=== PATIENT | male | born 1950 | race Caucasian/White ===

== ENCOUNTER 2024-08-09 05:40 | Inpatient (IN) ==
--- NOTE | 2024-07-06 15:57 | PAT Medication Instructions ---
Medication Instructions Date of Service July 06, 2024 Home Medications aspirin 81 mg tablet,delayed release 81 mg PO QAM atorvastatin 20 mg tablet 20 mg PO QAM duloxetine 30 mg capsule,delayed release 30 mg PO QAM glipizide 5 mg tablet 2.5 mg PO BID hydrochlorothiazide 25 mg tablet 25 mg PO QAM lisinopril 20 mg tablet 20 mg PO QAM metformin 500 mg tablet 500 mg PO BID omeprazole 20 mg capsule,delayed release 20 mg PO QAM sertraline 50 mg tablet 50 mg PO QAM ASK your prescriber and surgeon aspirin 81 mg tablet,delayed release 81 mg PO QAM DO NOT take the morning of surgery glipizide 5 mg tablet 2.5 mg PO BID hydrochlorothiazide 25 mg tablet 25 mg PO QAM lisinopril 20 mg tablet 20 mg PO QAM metformin 500 mg tablet 500 mg PO BID Take morning of surgery With a small sip of water, OTHERWISE NOTHING TO EAT OR DRINK AFTER MIDNIGHT: atorvastatin 20 mg tablet 20 mg PO QAM duloxetine 30 mg capsule,delayed release 30 mg PO QAM omeprazole 20 mg capsule,delayed release 20 mg PO QAM sertraline 50 mg tablet 50 mg PO QAM Take evening before surgery glipizide 5 mg tablet 2.5 mg PO BID metformin 500 mg tablet 500 mg PO BID Other Notes If you have any questions please call us at [phone] or [phone] or [phone] or [phone]
--- NOTE | 2024-07-14 10:55 | Anesthesiology Consultation ---
Date of Service July 14, 2024 Assessment & Plan (1) Encounter for pre-operative examination: - check BSG am DOS. - awaiting surgeon ordered medical clearance, 07/15/24 Lee Ann Cummings. Chart Review Chart Review: Pending: Refer to Additional Notes / Consult section and Patient seen in Pre Admission Testing Teaching & Discussion Pre-Anesthesia Teaching/Discussion Notes: Instructed NPO after midnight before surgery, except medications with 15 cc of water. Medication instructions provided according to the PAT guidelines. History Surgery Operation Date: 08/09/24 07:45 Proposed Procedures p L1-S1 Decompression, T12-S1 Fusion with Spinal Cord Monitoring - Christian Rizvi, Height/Weight Height: 5 ft 9 in Weight: 118.7 kg Allergies Allergy/AdvReac Type Severity Reaction Status Date / Time adhesive tape Allergy Intermediate Sores, Verified 07/02/24 11:45 "Ripped my skin right off" cholecalciferol (vitamin D3) Allergy Intermediate Itching Verified 07/02/24 11:45 [From Vitamin D3] ergocalciferol (vitamin D2) Allergy Intermediate Itching Verified 07/02/24 11:45 [From Vitamin D2] testosterone Allergy Intermediate Itching Verified 07/02/24 11:45 Penicillins Allergy Unknown Unknown Verified 07/02/24 11:45 Medications Home Medications Medication Instructions Recorded Confirmed Last Taken aspirin 81 mg tablet,delayed 81 mg PO QAM 07/02/24 07/02/24 Unknown release atorvastatin 20 mg tablet 20 mg PO QAM 07/02/24 07/02/24 Unknown duloxetine 30 mg capsule,delayed 30 mg PO QAM 07/02/24 07/02/24 Unknown release glipizide 5 mg tablet 2.5 mg PO BID 07/02/24 07/02/24 Unknown hydrochlorothiazide 25 mg tablet 25 mg PO QAM 07/02/24 07/02/24 Unknown lisinopril 20 mg tablet 20 mg PO QAM 07/02/24 07/02/24 Unknown metformin 500 mg tablet 500 mg PO BID 07/02/24 07/02/24 Unknown omeprazole 20 mg capsule,delayed 20 mg PO QAM 07/02/24 07/02/24 Unknown release sertraline 50 mg tablet 50 mg PO QAM 07/02/24 07/02/24 Unknown Past Medical History Medical History Acid reflux controlled, stable per pt Adverse effect of anesthesia awareness under anesthesia Diabetes mellitus, type 2 NIDDM History of prostate cancer (~2007) surgery only - no xrt/chemo Hx of Lyme disease (~2019) x2 completed antibiotic tx-denies residual issues Hypertension controlled, stable per pt Lung disease pt unsure of type Sleep apnea CPAP-compliant Patient denies h/o stroke, seizures, heart attack, heart failure, blood clots/DVTs or blood transfusions. Exercise / Class Metabolic Activity III < 4 Walking/Shop/Light housework (denies chest discomfort or shortness of breath with usual activities) Past Surgical History Surgical History History of bilateral cataract extraction History of hemorrhoidectomy History of hernia repair History of nasal surgery deviated septum History of prostatectomy History of surgery more than 20 yrs ago- "gland near prostate" pt cannot recall additional details History of tonsillectomy History of total left knee replacement Hx of colonoscopy Past Anesthesia History No Family Hx of Anesthesia Complications and Other (awareness during anesthesia) History of PONV No Hx of PONV and No Hx of Motion Sickness Social History Smoking Status: Former smoker Do You Dip or Chew Tobacco: No Smoking End Date: 47 years ago Hx Alcohol Use: Yes Alcohol type: beer alcohol intake frequency: a few times a month Hx Substance Use: No substance use type: does not use Review of Systems Patient denies chest pain, shortness of breath, dyspnea on exertion, fever, chills, cough, wheezing, or palpitations. Physical Exam Vital Signs Vitals BP 134/83 P 74 TEMP 98.4 SP02 95% on RA RESP 19 Physical Patient resting comfortably in chair in no acute distress, alert and oriented, responding appropriately throughout visit Full cervical extension range of motion without pain TMD < 3 finger breadths Mallampati Score 3 Dentition: several chipped teeth, denies chipped or loose teeth, caps/crowns, implants or bridges Lungs: normal respiratory effort. Good air movement, clear throughout to auscultation, no adventitious breath sounds Cardiac: regular rate and rhythm, no murmurs noted Carotid arteries: negative bruit bilat Lab Results Anesthesia Preop Results Results Anesthesia Widget: WBC 6.60 K/ul (4.8-10.8) 07/14/24 Hgb 12.2 g/dl (14.0-18.0) L 07/14/24 Hct 36.8 % (42.0-52.0) L 07/14/24 Plt 176 K/uL (130-400) 07/14/24 Na 136 mmol/L (136-145) 07/14/24 K 4.4 mmol/L (3.5-5.1) 07/14/24 Cl 103 mmol/L (98-107) 07/14/24 CO2 27 mmol/L (21-32) 07/14/24 BUN 13 mg/dl (6-23) 07/14/24 Creat 0.83 mg/dl (0.6-1.4) 07/14/24 Glucose Level 129 mg/dl (70-99(Fasting)) H 07/14/24 PT 10.7 Seconds (9.0-12.0) 07/14/24 PTT 26 Seconds (21-31) 07/14/24 INR 1.0 (0.9-1.1) 07/14/24 HA1c 7.0 % (4.5-5.6) H 07/14/24 Urine Color Yellow 07/14/24 Urine Appearance Clear (Clear) 07/14/24 Urine pH 7.0 (4.5-7.5) 07/14/24 Urine Specific [place] 1.009 (1.000-1.030) 07/14/24 Urine Protein Negative (Negative) 07/14/24 Urine Glucose (UA) Negative (Negative) 07/14/24 Urine Ketones Negative (Negative) 07/14/24 Urine Blood Negative (Negative) 07/14/24 Urine Nitrite Negative (Negative) 07/14/24 Urine Bilirubin Negative (Negative) 07/14/24 Urine Urobilinogen Negative (Negative) 07/14/24 Urine Leukocyte Esterase Negative (Negative) 07/14/24 Blood Type A Negative 07/14/24 Antibody Screen NEGATIVE 07/14/24 Testing Electrocardiogram Date: 07/14/24 NSR, rate 74 bpm Low voltage QRS Chest X-Ray Date: 07/14/24 No acute cardiopulmonary abnormalities were identified.
[2024-08-09] MEDS: LR 60ML/HR IV SCH (06:20)
[2024-08-09] MEDS: LR 15ML/HR IV SCH (06:21)
[2024-08-09] MEDS: VANCOMYCIN HCL 1,750 MG in SODIUM CHLORIDE 0.9% 500 ML IV SCH (06:21)
[2024-08-09] MEDS: GABAPENTIN 300 MG CAP PO SCH (06:24)
[2024-08-09] MEDS: CeleBREX 200 MG CAP PO SCH (06:25)
[2024-08-09] MEDS: ACETAMINOPHEN 500 MG TAB PO SCH (06:25)
[2024-08-09] MEDS ORDERED: PROPOFOL IV EMULSION 10 MG/ML 20 ML VIAL IV ONE (07:27)
[2024-08-09] MEDS ORDERED: LIDOCAINE 2% 2 ML VIAL/AMP(20MG/ML) INFIL ONE (07:27)
[2024-08-09] MEDS ORDERED: DEXAMETHASONE SOD INJ 4 MG/ML VIAL ONE (07:27)
[2024-08-09] MEDS ORDERED: MIDAZOLAM HCL 1 MG/ML 2ML VIAL ONE (07:27)
[2024-08-09] MEDS ORDERED: GLYCOPYRROLATE 0.2 MG/ML VIAL ONE (07:27)
[2024-08-09] MEDS ORDERED: ROCURONIUM BROMIDE 10 MG/ML 5 ML VIAL IV ONE ×2 (07:27→10:20)
[2024-08-09] MEDS ORDERED: ONDANSETRON INJ 2 MG/ML 2 ML VIAL ONE (07:27)
[2024-08-09] MEDS ORDERED: fentaNYL citrate PF 100 MCG/2 ML VIAL ONE ×2 (07:27→09:06)
[2024-08-09] MEDS ORDERED: HYDROmorphone INJ 2 MG/ML SYR/VIAL IV PRN (07:31)
[2024-08-09] MEDS ORDERED: ePHEDrine sulfate 50 MG/ML AMP IV PRN (07:31)
[2024-08-09] MEDS ORDERED: SUGAMMADEX SODIUM 200 MG/2 ML VIAL IV ONE (07:31)
[2024-08-09] MEDS ORDERED: ONDANSETRON INJ 2 MG/ML 2 ML VIAL IV PRN ×2 (07:31→14:30)
[2024-08-09] MEDS ORDERED: ATROPINE SULFATE 0.1 MG/ML 10ML SYR IV PRN (07:31)
[2024-08-09] MEDS ORDERED: HYDROmorphone INJ 1 MG/ML SYRINGE IV PRN ×2 (07:31→14:30)
--- NOTE | 2024-08-09 08:15 | Anesthesiology Consultation ---
Date of Service August 09, 2024 Assessment & Plan Chart Review Chart Review: Acceptable Risk for Surgery Consults Requested none ASA ASA3 Proposed Anesthesia Anesthesia Type: General History Surgery Operation Date: 08/09/24 09:05 Proposed Procedures p L1-S1 Decompression, T12-S1 Fusion. Spinal Cord Monitoring - Christian Rizvi DO Height/Weight Height: 5 ft 9 in Weight: 115.7 kg Allergies Allergy/AdvReac Type Severity Reaction Status Date / Time adhesive tape Allergy Intermediate Sores, Verified 08/09/24 05:49 "Ripped my skin right off" cholecalciferol (vitamin D3) Allergy Intermediate Itching Verified 08/09/24 05:49 [From Vitamin D3] ergocalciferol (vitamin D2) Allergy Intermediate Itching Verified 08/09/24 05:49 [From Vitamin D2] testosterone Allergy Intermediate Itching Verified 08/09/24 05:49 Penicillins Allergy Unknown Unknown Verified 08/09/24 05:49 Medications Home Medications Medication Instructions Recorded Confirmed Last Taken aspirin 81 mg tablet,delayed 81 mg PO QAM 07/02/24 08/09/24 2 Days Ago release ~08/07/24 atorvastatin 20 mg tablet 20 mg PO QAM 07/02/24 08/09/24 08/09/24 04:45 duloxetine 30 mg capsule,delayed 30 mg PO QAM 07/02/24 08/09/24 08/09/24 04:45 release glipizide 5 mg tablet 2.5 mg PO BID 07/02/24 08/09/24 08/08/24 18:30 hydrochlorothiazide 25 mg tablet 25 mg PO QAM 07/02/24 08/09/24 08/08/24 08:00 lisinopril 20 mg tablet 20 mg PO QAM 07/02/24 08/09/24 08/08/24 08:00 metformin 500 mg tablet 500 mg PO BID 07/02/24 08/09/24 08/08/24 18:30 omeprazole 20 mg capsule,delayed 20 mg PO QAM 07/02/24 08/09/24 08/09/24 04:45 release sertraline 50 mg tablet 50 mg PO QAM 07/02/24 08/09/24 08/09/24 04:45 Active Medications Generic Name Dose Route Start Last Admin Trade Name Amauryq PRN Reason Stop Dose Admin Acetaminophen 1,000 mg 08/09/24 06:00 08/09/24 06:25 Acetaminophen 500 Mg Tab PO 08/09/24 18:00 1,000 mg PREOP KEO Administration Celecoxib 200 mg 08/09/24 06:00 08/09/24 06:25 Celebrex 200 Mg Cap PO 08/09/24 18:00 200 mg PREOP KEO Administration Gabapentin 300 mg 08/09/24 06:00 08/09/24 06:24 Gabapentin 300 Mg Cap PO 08/09/24 18:00 300 mg PREOP KEO Administration Lactated Ringer's 1,000 mls @ 15 mls/hr 08/09/24 06:00 08/09/24 06:21 Lr IV 08/10/24 05:59 15 mls/hr .Q24H KEO Administration Lactated Ringer's 1,000 mls @ 60 mls/hr 08/09/24 06:00 08/09/24 06:20 Lr IV 08/09/24 22:39 Not Given .[id number] KEO Vancomycin HCl 1,750 mg/ 535 mls @ 200 mls/hr 08/09/24 06:00 08/09/24 06:21 Sodium Chloride IV 08/09/24 18:00 200 mls/hr PREOP KEO Administration NPO Date Last Intake of Fluids: 08/08/24 Time Last Intake of Fluids: 21:00 Date Last Intake of Solids: 08/08/24 Time Last Intake of Solids: 21:00 Last Intake of Solids Comment: Greater then 8 hrs Past Medical History Medical History Sleep apnea CPAP-compliant History of prostate cancer (~2007) surgery only - no xrt/chemo Acid reflux controlled, stable per pt Hx of Lyme disease (~2019) x2 completed antibiotic tx-denies residual issues Hypertension controlled, stable per pt Lung disease pt unsure of type Diabetes mellitus, type 2 NIDDM Adverse effect of anesthesia awareness under anesthesia Exercise / Class Metabolic Activity III < 4 Walking/Shop/Light housework Past Surgical History Surgical History History of surgery more than 20 yrs ago- "gland near prostate" pt cannot recall additional details Hx of colonoscopy History of bilateral cataract extraction History of nasal surgery deviated septum History of tonsillectomy History of hemorrhoidectomy History of hernia repair History of total left knee replacement History of prostatectomy Past Anesthesia History No Hx of Anesthesia Complications History of PONV No Hx of PONV and No Hx of Motion Sickness Social History Smoking Status: Former smoker Do You Dip or Chew Tobacco: No Smoking End Date: 47 years ago Hx Alcohol Use: Yes Alcohol type: beer alcohol intake frequency: a few times a month Hx Substance Use: No substance use type: does not use Physical Exam Vital Signs Last Vital Signs Temp 36.4 C L 08/09/24 06:07 Pulse 85 08/09/24 06:07 Resp 20 08/09/24 06:07 BP 128/79 08/09/24 06:07 Pulse Ox 95 08/09/24 06:07 O2 Del Method Room Air 08/09/24 06:07 Constitutional + obese; no acute distress ENMT Mouth: + TMJ abnormality; no dentition abnormality Thyromental Distance: > or= 3.5 Finger Breadths Mallampati Class: II Neck + thick neck Respiratory normal respiratory effort Auscultation: lungs clear to auscultation bilaterally Cardiovascular Rate/Rhythm: regular rate and regular rhythm Neurologic moves all extremities Psychiatric Orientation: alert and oriented x 3 Testing Laboratory Results 08/09/24 06:08 POC Glucose 122 H Electrocardiogram Date: 07/14/24 NSR, rate 74 bpm Low voltage QRS Chest X-Ray Date: 07/14/24 No acute cardiopulmonary abnormalities were identified.
--- NOTE | 2024-08-09 08:20 | History & Physical Bridge Note ---
Date of Service August 09, 2024 History & Physical Bridge Note I have examined the patient, reviewed the History & Physical and in the interval since the performance of the History & Physical I have noted the following changes of clinical significance: no changes noted
--- NOTE | 2024-08-09 08:21 | History & Physical Report ---
Date of Service August 09, 2024 Assessment & Plan (1) Spondylolisthesis, lumbar region: Plan: L1 S1 decompression, T12-S1 fusion History of Present Illness Chief Complaint: Back and bilateral leg pain Primary Care Provider: Lee Ann Borrero This is a 74-year-old male who presents with back and bilaterally pain and failing course of nonoperative care is here for surgical invention. Allergies Allergy/AdvReac Type Severity Reaction Status Date / Time adhesive tape Allergy Intermediate Sores, Verified 08/09/24 05:49 "Ripped my skin right off" cholecalciferol (vitamin D3) Allergy Intermediate Itching Verified 08/09/24 05:49 [From Vitamin D3] ergocalciferol (vitamin D2) Allergy Intermediate Itching Verified 08/09/24 05:49 [From Vitamin D2] testosterone Allergy Intermediate Itching Verified 08/09/24 05:49 Penicillins Allergy Unknown Unknown Verified 08/09/24 05:49 Home Medications Medication Instructions Recorded Confirmed Type aspirin 81 mg tablet,delayed 81 mg PO QAM 07/02/24 08/09/24 History release atorvastatin 20 mg tablet 20 mg PO QAM 07/02/24 08/09/24 History duloxetine 30 mg capsule,delayed 30 mg PO QAM 07/02/24 08/09/24 History release glipizide 5 mg tablet 2.5 mg PO BID 07/02/24 08/09/24 History hydrochlorothiazide 25 mg tablet 25 mg PO QAM 07/02/24 08/09/24 History lisinopril 20 mg tablet 20 mg PO QAM 07/02/24 08/09/24 History metformin 500 mg tablet 500 mg PO BID 07/02/24 08/09/24 History omeprazole 20 mg capsule,delayed 20 mg PO QAM 07/02/24 08/09/24 History release sertraline 50 mg tablet 50 mg PO QAM 07/02/24 08/09/24 History Past Med/Surg History Problem List (Updated 08/09/24 @ 08:21 by Christian Rizvi DO) Spondylolisthesis, lumbar region Encounter for pre-operative examination Medical History Sleep apnea CPAP-compliant History of prostate cancer (~2007) surgery only - no xrt/chemo Acid reflux controlled, stable per pt Hx of Lyme disease (~2019) x2 completed antibiotic tx-denies residual issues Hypertension controlled, stable per pt Lung disease pt unsure of type Diabetes mellitus, type 2 NIDDM Adverse effect of anesthesia awareness under anesthesia Surgical History History of surgery more than 20 yrs ago- "gland near prostate" pt cannot recall additional d etails Hx of colonoscopy History of bilateral cataract extraction History of nasal surgery deviated septum History of tonsillectomy History of hemorrhoidectomy History of hernia repair History of total left knee replacement History of prostatectomy Social History Smoking Status: Former smoker Tobacco Type: Cigarettes Smoking End Date: 47 years ago; Second Hand Exposure: No; Do You Dip or Chew Tobacco: No; Tobacco Cessation Education Requested by Patient: No Hx Alcohol Use: Yes Alcohol type: beer Hx Substance Use: No Preferred Language: [place]ralt[place] Communication Ability: Effective Senior Php Developer Required: No Beliefs That Will Affect Care: None Current Living Situation: Spouse Other Information That Helps Us Care for You: No Feels Safe at Home: Yes Safety Concerns: Feels Safe At This Time Assistive Devices: Glasses and Other Assistive Devices Comment: Upper Partial Physical Exam 2 Physical Exam: Patient is alert and oriented heart regular rhythm Lungs clear Results & Data Results & Data Vital Signs (Past 12 Hours) Vital Signs Temp Pulse Resp BP Pulse Ox O2 Del Method 08/09/24 06:07 36.4 C L 85 20 128/79 95 Room Air
[2024-08-09] MEDS ORDERED: TRANEXAMIC ACID / 0.7% NACL 1000MG/100ML BAG IV ONE (09:10)
[2024-08-09] MEDS: TRANEXAMIC ACID / 0.7% NACL 1,000 MG/100 ML BAG IV STA ×2 (09:14→10:52)
[2024-08-09] MEDS ORDERED: PHENYLEPHRINE 100MCG/ML 5ML SYR ONE (09:20)
[2024-08-09] MEDS: BUPIVACAINE/EPINEPHRINE 0.25% 1:200,000 30 ML VIAL ONE (09:46)
[2024-08-09] MEDS: SURGICEL ABSORB HEMOSTAT 2IN X 14IN TOP ONE (09:46)
[2024-08-09] MEDS ORDERED: ALBUMIN HUMAN 5% 12.5 GM/250 ML VIAL IV ONE (09:50)
[2024-08-09] MEDS: ceFAZolin 330 MG/ML 1 GM VIAL ONE (10:03)
[2024-08-09] MEDS ORDERED: ePHEDrine sulfate 50 MG/5 ML SYR ONE (10:22)
[2024-08-09] MEDS ORDERED: SODIUM CHLORIDE 0.9% 100 ML IV PRN (11:11)
[2024-08-09] MEDS ORDERED: SODIUM CHLORIDE 0.9% 50 ML IV PRN (11:11)
[2024-08-09] MEDS ORDERED: HYDROmorphone INJ 2 MG/ML SYR/VIAL ONE (11:53)
[2024-08-09] MEDS: FLOSEAL HEMOSTATIC MATRIX 10ML TOP ONE (12:44)
--- NOTE | 2024-08-09 13:02 | Operative Report ---
Post Operative Report Pre & Post Diagnosis Operation Date: 08/09/24 09:05 Pre-Op Diagnosis: #1 multilevel lumbar spondylosis with radiculopathy #2 lumbar spondylolisthesis. #3 lumbar spinal stenosis #4 lumbar disc herniation with radiculopathy L1-L2 #5 obesity Post-Op Diagnosis: Same I identified the patient and participated in the time-out.: Yes Procedure Operation Date: 08/09/24 09:05 Actual Procedures #1 lumbar decompression with bilateral medial facetectomies and foraminotomies T12-S1. #2 posterior spinal fusion T12-S1. #3 placement posterior segmental instrumentation using Ortiz T12-S1. #4 interbody fusion L3-L4 L4-L5 L5-S1. #5 placement Spira 15 x 26 mm x 2 at L2-3 L4, 13 x 26 mm x 2 at L4-5 and 16 x 26 mm x 2 at L5-S1. #6 placement locally harvested morselized autograft and posterior gutters per #7 placement infuse collagen sponge, with Koros in the posterior lateral gutters and os design bone graft and by space. #8 application of versa wrap over the exposed dura. Surgeon Christian Rizvi, DO Lithographic Plate Maker Elli Centeno Estimated Blood Loss 2,150 Findings See Below The patient is 5 foot 9 weighing over 115 kg with a BMI in excess of 37. This combined with an EBL of greater than 2000 cc created significant technical difficulty With positioning exposure and the procedure itself. This at least 50% increased operative time. And recommending a modifier 22. Specimens None Indications This is a 74-year-old male presents publish diagnosis of failing course of nonoperative care is here for surgical invention. Description of Procedure Patient was met with identified informed consent obtained. Patient was then taken to the operative suite underwent intubation placed in a prone position on the Chris table atop the [place] frame. All bony prominences well-padded eyes inspected to ensure no external precipice spinal. This point the thoracolumbar spine is prepped and draped no sterile fashion. Sharp dissection with the assistance of Bovie cautery from down to and exposing the transverse processes of T12-L1 L2-L3-L4 L5 and the sacral ala bilaterally. From caudal to cephalad fashion complete laminectomy of L5 L4 L3 L2 L1 and T12 was performed with bilateral medial facetectomies and foraminotomies addressing severe spinal stenosis. This included resection of the disc herniation at L1-L2 on the left. Pedicle screws then placed in T12 L1-L2 L3-L4-L5 and S1 levels bilaterally with the assistance of fluoroscopy in the process scarlet contoured and placed. By way of transfer approach on the right discectomy of L5-S1 was performed endplates guarded to subcortical and bone and a 16 x 26 mm Spira cage filled with os design bone graft tapped in position. Then proceeded to left transforaminal region at L5-S1. Again discectomy performed endplates grade 2 subcortical bleeding bone and a second 16 x 26 mm Spira cage filled with os design tapped in position. Then proceeded L4-[address] of transfer approach on the left a discectomy was performed. Endplates guided to subcortical bleeding bone. A 13 x 26 mm spiral cage filled with os design bone graft apposition. Then proceeded to the right transforaminal region at L4-L5. Again discectomy performed. Endplates guided to subcortical the bone. A second 13 x 26 mm spiral cage filled with os design bone graft apposition. Then proceeded to L3-L4. And by way of a transforaminal portion right a discectomy was performed. Endplates guided to subcortical main bone. A 15 x 26 mm Spira cage filled with os design bone graft tapped in position. Then proceeded to left transforaminal region at L3-L4. Again discectomy performed. Endplates guided to subcortical bleeding bone. A second 13 x 26 mm Spira cage filled with os design bone graft apposition. The rods were then compressed locked in final position bilaterally. The transverse processes of T12 L1-L2 L3-L4-L5 and the sacral ala burred to subcortical white bone. Infuse collagen sponge combined with Koros and local autograft placed in the posterior gutters. 15 round IVONE drain inserted. Versa wrap placed over the exposed dura. Incision was then closed with 1 Vicryl fascia 2-0 Vicryl subcutaneously and 4 Monocryl for final skin closure. Steri- Strips and sterile dressing placed. Patient waken taken to PACU in stable condition. Please note spinal cord monitoring was utilized at the procedure no changes noted. Elli Centeno was present at the entire surgeon while the patient positioning complex portion of the surgery and final skin closure. I attest to the content of the Intraoperative Record and any orders documented therein. Any exceptions are noted below.
[2024-08-09 13:31] LABS: iSTAT Hemoglobin 10.2 g/dl (14.0-18.0); iSTAT Ionized Calcium 1.17 mmol/l (1.12-1.32); iSTAT Potassium 4.7 mmol/L (3.3-5.0)
[2024-08-09 13:31] LABS: iSTAT Hemoglobin 8.5 g/dl (14.0-18.0); iSTAT Ionized Calcium 1.11 mmol/l (1.12-1.32); iSTAT Potassium 5.1 mmol/L (3.3-5.0)
[2024-08-09] MEDS: fentaNYL citrate PF 100 MCG/2 ML VIAL IV PRN (13:45)
[2024-08-09 14:18] LABS: Hemoglobin 9.8 g/dl (14.0-18.0)
[2024-08-09] MEDS ORDERED: traMADol HCL 50 MG TABLET PO PRN (14:30)
[2024-08-09] MEDS ORDERED: DO NOT ADMINISTER PNEUMOCOCCAL VACCINE PRN (14:30)
[2024-08-09] MEDS ORDERED: DO NOT ADMINISTER FLU VACCINE PRN (14:30)
[2024-08-09] MEDS ORDERED: LORazepam 2 MG/1 ML VIAL IV PRN (14:30)
[2024-08-09] MEDS ORDERED: diphenhydrAMINE Capsule 25 MG CAP PO PRN (14:30)
[2024-08-09] MEDS ORDERED: PROMETHAZINE 12.5 MG/50.5 ML BAG IV PRN (14:30)
[2024-08-09] MEDS ORDERED: METOCLOPRAMIDE HCL INJ 5 MG/ML 2 ML VIAL IV PRN (14:30)
[2024-08-09] MEDS ORDERED: ONDANSETRON 4 MG OD TAB PO PRN (14:30)
[2024-08-09] MEDS ORDERED: ALUMINUM/MAGNESIUM SUSP 30 ML UDC PO PRN (14:30)
[2024-08-09] MEDS ORDERED: FAMOTIDINE 20 MG TAB PO PRN (14:30)
[2024-08-09] MEDS ORDERED: LORazepam 0.5 MG TAB PO PRN (14:30)
[2024-08-09] MEDS ORDERED: NALOXONE HCL 0.4 MG/1 ML VIAL/CARP IV PRN (14:30)
[2024-08-09] MEDS ORDERED: hydrOXYzine HCl 25 MG TAB PO PRN (14:30)
[2024-08-09] MEDS ORDERED: SOD PHOSPHATE/SOD BIPHOSPHATE ENEMA 132 ML BTL PR PRN (14:30)
[2024-08-09] MEDS ORDERED: HYDROmorphone INJ 0.5 MG/0.5 ML SYR IV PRN (14:30)
[2024-08-09] MEDS ORDERED: PHARMACY GLYCEMIC MGMT CONSULT PRN (14:30)
--- NOTE | 2024-08-09 14:59 | Fluoroscopy Report ---
FL lumbar spine 2-3V CLINICAL HISTORY: L1-S1 DECOMPRESSION T12-L1 FUSION COMPARISON STUDY: None pertinent FLUOROSCOPY TIME: 44.8 seconds FLUOROSCOPY IMAGES: 7 EXPOSURE DOSE: 40.61 mGy FINDINGS: Fluoroscopic guidance was performed for a multilevel laminectomy and fusion fusion IMPRESSION: Guidance; please refer to the operative report for findings on real-time observation. ACT 112: Negative or not required by law. Electronically signed by: Kelly Arboleda M.D. 08/09/2024 2:58 PM
[2024-08-09] MEDS ORDERED: DEXTROSE 50% 50 ML SYRINGE IV PRN (15:00)
[2024-08-09] MEDS ORDERED: GLUCAGON FOR INJ 1 MG VIAL SQ PRN (15:00)
[2024-08-09] MEDS ORDERED: GLUCOSE 40% GEL 15 GM TUBE PO PRN (15:00)
[2024-08-09] MEDS ORDERED: CARBOHYDRATES FOR HYPOGLYCEMIA PO PRN (15:00)
[2024-08-09] MEDS ORDERED: GLUCOSE 10 TAB/TUBE PO PRN (15:00)
--- NOTE | 2024-08-09 15:07 | Anesthesiology Progress Note ---
Date of Service August 09, 2024 Anesthesia Post Procedure Vital Signs Vital Signs: Temp Pulse Pulse Resp BP BP Pulse Ox 08/09/24 14:36 36.4 C L 101 H 16 108/57 L 95 08/09/24 14:20 36.4 C L 104 H 18 103/89 94 08/09/24 14:10 98 H 12 94/55 L 97 08/09/24 14:00 99 H 15 94/58 L 96 08/09/24 13:50 101 H 18 99/64 L 97 08/09/24 13:40 100 H 18 94/68 L 98 08/09/24 13:30 101 H 12 107/58 L 99 08/09/24 13:20 36.2 C L 85 16 91/50 L 97 08/09/24 13:00 100 H 12 107/58 L 98 08/09/24 06:07 36.4 C L 85 20 128/79 95 O2 Del Method O2 Flow Rate 08/09/24 14:36 Nasal Cannula 3 08/09/24 14:20 Nasal Cannula 3 08/09/24 14:10 Nasal Cannula 3 08/09/24 14:00 Nasal Cannula 3 08/09/24 13:50 Oxymask 4 08/09/24 13:40 Oxymask 4 08/09/24 13:30 Oxymask 4 08/09/24 13:20 Oxymask 6 08/09/24 13:00 Oxymask 4 08/09/24 06:07 Room Air Pain Intensity Lower Back: Pain Intensity: 5 Bilateral Hip: Pain Intensity: 7 Transfer of Care Handoff Completed per policy Notes Mental Status: alert / awake / arousable Patient Amnestic to Procedure: Yes Nausea / Vomiting: adequately controlled Pain: adequately controlled Airway Patency, RR, SpO2: stable & adequate BP & HR: stable & adequate Hydration State: stable & adequate Anesthetic Complications: no major complications apparent and Pt Satisfied with anesthetic care Notes: Unit of PRBC given in OR Hct 30 - surgical team to continue to manage, god pain control, moves all ext
--- NOTE | 2024-08-09 15:08 | Pharmacy Report ---
Pharmacy Glycemic Short Note 2 - Date of Service August 09, 2024 - Glycemic Short BSG Results (Last 24 hours): 08/09/24 08/09/24 08/09/24 06:08 10:46 12:27 POC Glucose 122 H POC Glucose (other) 150 H 216 H 08/09/24 13:23 POC Glucose 273 H POC Glucose (other) OUTPATIENT ANTIDIABETIC REGIMEN: * glipizide 2.5mg po BID * metformin 500mg po BID HbA1c: 7% on 07-14-24 ASSESSMENT: * 74 year old male admitted 08/09 for spinal decompression and fusion (POD #0). Pharmacy was consulted for glycemic management postop. * BSG preop was 122mg/dL and post op was 273mg/dL. He did receive dexamethasone 8mg iv x 1 preop. Lantus 20 units SQ x 1 was ordered and he was started on a weight based bolus insulin regimen with a stress of 2. PLAN FOR INPATIENT GLYCEMIC CONTROL: * Hold outpatient oral diabetes medications * Basal insulin * Lantus 20 units SQ x 1 * Bolus insulin * NovoLog per scale ACHS or Q6hrs while NPO * Goal Range: Low 110 mg/dL - High 140 mg/dL * Correction Factor: 20 mg/dL/unit * Nutritional / Prandial insulin per carb ratio of 1 unit per 8 grams CHO consumed
--- NOTE | 2024-08-09 16:06 | Consultation ---
Date of Consultation August 09, 2024 Assessment & Plan (1) Spondylolisthesis, lumbar region: (2) Acute blood loss as cause of postoperative anemia: (3) Postoperative hypotension: (4) Diabetes mellitus, type 2: Plan This is a 74 yr old M who has a significant PMH of HTN, HLD, T2DM, CARRI on CPAP, GERD who presents for elective lumbar procedure by Dr. Rizvi. #S/P L1-S1 decompression and T12-L1 fusion POD #[address] Rizvi #Acute blood loss anemia as cause of post operative anemia with EBL 2,150ml pt admitted to medical pain/wound management per ortho remain bedrest for now given hypotension pt with hypovolemia in setting of blood loss, he received 1 unit PRBC in pacu will obtain repeat stat H/H now, with low threshold for additional unit will give 500ml IVF x 1 now and continue maintenance at 125cc/hr place ASA on hold will hold all antihypertensives #Hyperkalemia: K of 5.1, will repeat now, hold lisinopril, and place on low K diet. #T2DM, controlled a1c 7.0 in July on metformin, glipizide, hold for now glycemic pharmacy on board - appreciate management post op pt is hyperglycemic 2/2 steroids #HTN on lisinopril and HCTZ as outpt place on hold until BP improves #CARRI on cpap: continue cpap at hs #DVT ppx: SCDS FULL CODE PCP: Lee Ann Borrero Dispo: admit to Med/surg, if decompensates further will transfer to higher level of care Pt was seen and examined in collaboration with Dr. Salter, please see addendum I spent a total of 35 minutes coordinating, documenting and providing care for this patient excluding time spent in the performance of separately billed services or time spent by another provider/QHP. Supervising Physician Co-Signing Physician Notes Seen resting in bed, sitting up, having dinner,Attending Addendum: Case reviewed with the advanced practitioner. I have personally performed a history and physical examination on the patient. I have reviewed the advanced practitioner's documentation on the date of service referenced in note, and I agree with, and take responsibility for the plan of care. please refer to her notes for full details patient seen and examined, records reviewed by myself as well on exam, patient resting in bed, not in distress, sitting up, having dinner States he is having right hip pain Denies dizziness, chest pain, shortness of breath, palpitations, nausea no other symptoms VS noted and reviewed oriented x 3, not in distress, speaks in sentences with no effort nor accessory muscle use Mild tachycardia , regular rhythm, no murmurs clear breath sounds bilaterally non distended, soft, nontender no bipedal edema, erythema, warmth no neuro deficits all labs, imaging noted and reviewed ASSESSMENT AND PLAN Status post back surgery Acute blood loss anemia Hypotension secondary to above Status post 1 unit of packed RBCs., Repeat hemoglobin 9 Repeat hemoglobin 11 PM pending 2.5 L total of IV NSS bolus given Blood pressure improving Continue to monitor closely Hold antihypertensives signed out to Dr. Fatima other diagnoses and plan of care as per advanced practitioner's notes I spent a total of 35 minutes coordinating, documenting, and providing care for this patient, excluding time spent in the performance of separately billed services or time spent by another provider/QHP. Walter Salter MD History of Present Illness Requesting Physician: Dr. Rizvi Reason for Consultation: Post op medical management Attending Physician: Christian Rizvi, History of Present Illness This is a 74 yr old M who has a significant PMH of HTN, HLD, T2DM, CARRI on CPAP, GERD who presents for elective lumbar procedure by Dr. Rizvi. Hx obtained from external chart review, pt and at bedside. Currently he feels sweaty, "like when my sugar is low." He denies f/c/s, lightheaded, dizziness, chest pain, sob, cough, uri, n/v/d. He has a huitron cath in place. Prior to surg he denies issues passing bowels or urine. He underwent an L1-S1 decompression with a T12-L1 fusion. He tolerated procedure well. He had a substantial ebl of > 2000ml. Post operatively he was hypotensive and received 1 unit PRBC. Post transfusion his hgb was 9.8 at 13:55. Upon arriving to the floor Pt was still hypotensive with SBPs 80-90s. He was tachycardic and mildly hypothermic. Nurse Chano was at bedside. Allergies Allergy/AdvReac Type Severity Reaction Status Date / Time adhesive tape Allergy Intermediate Sores, Verified 08/09/24 05:49 "Ripped my skin right off" cholecalciferol (vitamin D3) Allergy Intermediate Itching Verified 08/09/24 05:49 [From Vitamin D3] ergocalciferol (vitamin D2) Allergy Intermediate Itching Verified 08/09/24 05:49 [From Vitamin D2] testosterone Allergy Intermediate Itching Verified 08/09/24 05:49 Penicillins Allergy Unknown Unknown Verified 08/09/24 05:49 Home Medications Medication Instructions Recorded Confirmed Type aspirin 81 mg tablet,delayed 81 mg PO QAM 07/02/24 08/09/24 History release atorvastatin 20 mg tablet 20 mg PO QAM 07/02/24 08/09/24 History duloxetine 30 mg capsule,delayed 30 mg PO QAM 07/02/24 08/09/24 History release glipizide 5 mg tablet 2.5 mg PO BID 07/02/24 08/09/24 History hydrochlorothiazide 25 mg tablet 25 mg PO QAM 07/02/24 08/09/24 History lisinopril 20 mg tablet 20 mg PO QAM 07/02/24 08/09/24 History metformin 500 mg tablet 500 mg PO BID 07/02/24 08/09/24 History omeprazole 20 mg capsule,delayed 20 mg PO QAM 07/02/24 08/09/24 History release sertraline 50 mg tablet 50 mg PO QAM 07/02/24 08/09/24 History Patient History Medical History Sleep apnea CPAP-compliant History of prostate cancer (~2007) surgery only - no xrt/chemo Acid reflux controlled, stable per pt Hx of Lyme disease (~2019) x2 completed antibiotic tx-denies residual issues Hypertension controlled, stable per pt Lung disease pt unsure of type Diabetes mellitus, type 2 NIDDM Adverse effect of anesthesia awareness under anesthesia Surgical History History of surgery more than 20 yrs ago- "gland near prostate" pt cannot recall additional details Hx of colonoscopy History of bilateral cataract extraction History of nasal surgery deviated septum History of tonsillectomy History of hemorrhoidectomy History of hernia repair History of total left knee replacement History of prostatectomy Social History Smoking Status: Former smoker Tobacco Type: Cigarettes Smoking End Date: 47 years ago; Second Hand Exposure: No; Do You Dip or Chew Tobacco: No; Tobacco Cessation Education Requested by Patient: No Hx Alcohol Use: Yes Alcohol type: beer Hx Substance Use: No Preferred Language: Brazilian Communication Ability: Effective Button Riveter Required: No Beliefs That Will Affect Care: None Current Living Situation: Spouse Other Information That Helps Us Care for You: No Feels Safe at Home: Yes Safety Concerns: Feels Safe At This Time Assistive Devices: Glasses and Other Assistive Devices Comment: Upper Partial Review of Systems Review of Systems: All systems reviewed & are unremarkable except as noted in HPI & below Physical Exam Physical Exam: Constitutional: WD/WN, obese, M, lying in bed, vitals as above, NAD, sitting up in bed, pleasant, conversing easily, appears pale Head: Normocephalic, Atraumatic Eyes: PERRL, conjunctivae normal, anicteric sclerae ENMT: external ear and nose normal, oropharynx normal Neck: trachea midline, no thyromegaly normal visual inspection Respiratory: normal respiratory effort, lungs clear to auscultation, no wheeze, rales, rhonchi. Normal insp/exp effort, no accessory muscle use Cardiovascular: RRR, no murmur, no edema Vessels: no JVD or carotid bruit Chest: normal inspection of chest Abdomen: obese abd, normal bowel sounds, soft, nontender, no hepatosplenomegaly Musculoskeletal: no cyanosis or clubbing,AROm x 4, baldo drain with serosang drainage Skin: no rashes, warm and dry normal turgor Neurologic: no face palsy, no dysarthria CN's II-XI intact bilaterally and moves all extremities Psychiatric: A+Ox3, euthymic affect Lymph+huitron with yellow urine output Results & Data Vital Signs (Past 12 Hours) Vital Signs Temp Pulse Pulse Resp BP BP Pulse Ox 08/09/24 15:46 35.7 C L 97 H 16 94/54 L 94 08/09/24 15:30 08/09/24 15:09 36.3 C L 90 18 127/90 98 08/09/24 14:36 36.4 C L 101 H 16 108/57 L 95 08/09/24 14:20 36.4 C L 104 H 18 103/89 94 08/09/24 14:10 98 H 12 94/55 L 97 08/09/24 14:00 99 H 15 94/58 L 96 08/09/24 13:50 101 H 18 99/64 L 97 08/09/24 13:40 100 H 18 94/68 L 98 08/09/24 13:30 101 H 12 107/58 L 99 08/09/24 13:20 36.2 C L 85 16 91/50 L 97 08/09/24 13:00 100 H 12 107/58 L 98 08/09/24 06:07 36.4 C L 85 20 128/79 95 O2 Del Method O2 Flow Rate 08/09/24 15:46 Nasal Cannula 3 08/09/24 15:30 Nasal Cannula 3 08/09/24 15:09 Nasal Cannula 3 08/09/24 14:36 Nasal Cannula 3 08/09/24 14:20 Nasal Cannula 3 08/09/24 14:10 Nasal Cannula 3 08/09/24 14:00 Nasal Cannula 3 08/09/24 13:50 Oxymask 4 08/09/24 13:40 Oxymask 4 08/09/24 13:30 Oxymask 4 08/09/24 13:20 Oxymask 6 08/09/24 13:00 Oxymask 4 08/09/24 06:07 Room Air Laboratory Results Short CBC 08/09/24 Range/Units 13:55 Hgb 9.8 L (14.0-18.0) g/dl Hct 30.0 L (42.0-52.0) % I have independently reviewed and interpreted patient's cbc, bmp Diagnostic Findings Lumbar Spine X-Ray 08/09/24 09:05 FL lumbar spine 2-3V CLINICAL HISTORY: L1-S1 DECOMPRESSION T12-L1 FUSION COMPARISON STUDY: None pertinent FLUOROSCOPY TIME: 44.8 seconds FLUOROSCOPY IMAGES: 7 EXPOSURE DOSE: 40.61 mGy FINDINGS: Fluoroscopic guidance was performed for a multilevel laminectomy and fusion fusion IMPRESSION: Guidance; please refer to the operative report for findings on real- time observation. ACT 112: Negative or not required by law. Electronically signed by: Kelly Arboleda M.D. 08/09/2024 2:58 PM Medications Administered Current Inpatient Medications Acetaminophen (Acetaminophen 500 Mg Tab) 1,000 mg PO PREOP KEO Stop: 08/09/24 18:00 Last Admin: 08/09/24 06:25 Dose: 1,000 mg Acetaminophen (Acetaminophen 500 Mg Tab) 1,000 mg PO Q8H PRN PRN Reason: MILD Pain Scale 1,2,3 & Pre PT Stop: 09/08/24 14:29 Al Hydrox/Mg Hydrox/Simethicone (Aluminum/Magnesium Susp 30 Ml Udc) 30 ml PO Q6H PRN PRN Reason: Dyspepsia Stop: 09/08/24 14:29 Aspirin (Aspirin 81 Mg Ectab) 81 mg PO QAM [facility] Stop: 09/09/24 08:59 Atorvastatin Calcium (Atorvastatin 20 Mg Tab) 20 mg PO QAM [facility] Stop: 09/09/24 08:59 Bisacodyl (Bisacodyl 10 Mg Supp) 10 mg TX DAILY PRN PRN Reason: Constipation Stop: 09/08/24 14:29 Celecoxib (Celebrex 200 Mg Cap) 200 mg PO PREOP [facility] Stop: 08/09/24 18:00 Last Admin: 08/09/24 06:25 Dose: 200 mg Dextrose (Dextrose 50% 50 Ml Syringe) 25 - 50 ml IV UD PRN; Protocol PRN Reason: Hypoglycemia Protocol Stop: 09/08/24 14:59 Diphenhydramine HCl (Diphenhydramine Capsule 25 Mg Cap) 25 mg PO Q6H PRN PRN Reason: Allergic Rhinitis/Insomnia Stop: 09/08/24 14:29 Duloxetine HCl (Duloxetine Hcl 30 Mg Cap) [facility] Stop: 09/09/24 08:59 Famotidine (Famotidine 20 Mg Tab) 20 mg PO Q12H PRN PRN Reason: Dyspepsia Stop: 09/08/24 14:29 Gabapentin (Gabapentin 300 Mg Cap) 300 mg PO PREOP KEO Stop: 08/09/24 18:00 Last Admin: 08/09/24 06:24 Dose: 300 mg Glucagon (Glucagon For Inj 1 Mg Vial) 1 mg SQ UD PRN; Protocol PRN Reason: Hypoglycemia Protocol Stop: 09/08/24 14:59 Glucose (Glucose 40% Gel 15 Gm Tube) 15 - 30 gm PO UD PRN; Protocol PRN Reason: Hypoglycemia Protocol Stop: 09/08/24 14:59 Glucose (Glucose 10 Tab/Tube) 4 - 8 tab PO UD PRN; Protocol PRN Reason: Hypoglycemia Protocol Stop: 09/08/24 14:59 Hydrochlorothiazide (Hydrochlorothiazide 25 Mg Tab) 25 mg PO QAM [facility] Stop: 09/09/24 08:59 Hydromorphone HCl (Hydromorphone Inj 0.5 Mg/0.5 Ml Syr) 0.5 mg IV Q3H PRN PRN Reason: MODERATE Pain (Scale 4,5,6) & Pre PT Stop: 08/23/24 14:29 Hydromorphone HCl (Hydromorphone Inj 1 Mg/Ml Syringe) 1 mg IV Q3H PRN PRN Reason: SEVERE Pain (Scale 7,8,9,10) Stop: 08/23/24 14:29 Hydroxyzine HCl (Hydroxyzine Hcl 25 Mg Tab) 25 mg PO Q8H PRN PRN Reason: Anxiety Stop: 09/08/24 14:29 Lactated Ringer's (Lr) 1,000 mls @ 15 mls/hr IV .Q24H KEO Stop: 08/10/24 05:59 Last Infusion: 08/09/24 08:39 Dose: Infused Vancomycin HCl 1,750 mg/ (Sodium Chloride) 535 mls @ 200 mls/hr IV PREOP KEO Stop: 08/09/24 18:00 Last Infusion: 08/09/24 14:29 Dose: Infused Sodium Chloride (Nss) 100 mls @ 15 mls/hr IV .Q6H40M PRN PRN Reason: For Transfusion Duration Stop: 08/09/24 19:12 Sodium Chloride (Nss) 50 mls @ 15 mls/hr IV .Q3H20M PRN PRN Reason: For Transfusion Duration Stop: 08/09/24 19:12 Acetaminophen (Ofirmev) 1,000 mg in 100 mls @ 400 mls/hr IV Q8H PRN PRN Reason: Pain Rating 1-3 & Pre PT Stop: 08/10/24 14:31 Clindamycin Phosphate (Cleocin/D5w) 600 mg in 50 mls @ 100 mls/hr IV Q8H KEO Stop: 08/10/24 04:29 Promethazine HCl (Phenergan) 12.5 mg in 50.5 mls @ 202 mls/hr IV Q6H PRN PRN Reason: Nausea And Vomiting Stop: 09/08/24 14:29 Dexamethasone 6 mg/ Syringe 1.5 mls @ 1 mls/min IV DAILY KEO Stop: 08/12/24 09:02 Sodium Chloride (Nss) 500 mls @ 999 mls/hr IV .Q31M ONE Stop: 08/09/24 16:20 Sodium Chloride (Nss) 1,000 mls @ 125 mls/hr IV .Q8H KEO Stop: 08/10/24 15:59 Influenza Virus Vaccine Quadrival (Do Not Administer Flu Vaccine) 1 each N/A PRN PRN PRN Reason: Notification Stop: 09/08/24 14:29 Insulin Aspart (Insulin Aspart Per Unit Charge) 0 units SC ACHS [facility] Stop: 09/08/24 16:29 Lisinopril (Lisinopril 20 Mg Tab) 20 mg PO QAM [facility] Stop: 09/09/24 08:59 Lorazepam (Lorazepam 0.5 Mg Tab) 0.5 mg PO Q8H PRN PRN Reason: Sedation/Anxiety Stop: 09/08/24 14:29 Lorazepam (Lorazepam 2 Mg/1 Ml Vial) 0.5 mg IV Q8H PRN PRN Reason: Sedation/Anxiety Stop: 09/08/24 14:29 Magnesium Hydroxide (Magnesium Hydroxide Susp 30 Ml Udc) 30 ml PO Q24H PRN PRN Reason: Constipation Stop: 09/08/24 14:29 Metoclopramide HCl (Metoclopramide Hcl Inj 5 Mg/Ml 2 Ml Vial) 10 mg IV Q6H PRN PRN Reason: Nausea &/or Vomiting Stop: 09/08/24 14:29 Miscellaneous (Carbohydrates For Hypoglycemia ) 15 - 30 gm PO UD PRN PRN Reason: Hypoglycemia Treatment Stop: 09/08/24 14:59 Miscellaneous Information (Pharmacy Glycemic Mgmt Consult) 1 each N/A UD PRN PRN Reason: Consult Stop: 09/08/24 14:29 Naloxone HCl (Naloxone Hcl 0.4 Mg/1 Ml Vial/Carp) 0.1 mg IV Q5M PRN PRN Reason: Oversedation/Resp depression Stop: 09/08/24 14:29 Ondansetron HCl (Ondansetron Inj 2 Mg/Ml 2 Ml Vial) 4 mg IV Q6H PRN PRN Reason: Nausea &/or Vomiting Stop: 09/08/24 14:29 Ondansetron HCl (Ondansetron 4 Mg Od Tab) 4 mg PO Q6H PRN PRN Reason: Nausea Stop: 09/08/24 14:29 Oxycodone HCl (Oxycodone Hcl Ir 5 Mg Tab (Immediate Release)) 5 - 10 mg PO Q4H PRN PRN Reason: Pain & Pre PT Stop: 08/23/24 14:29 Pantoprazole Sodium (Pantoprazole 40 Mg Tab) 40 mg PO QAM KEO Stop: 09/09/24 08:59 Pneumococcal Polyvalent Vaccine (Do Not Administer Pneumococcal Vaccine) 1 each N/A PRN PRN PRN Reason: Notification Stop: 09/08/24 14:29 Polyethylene Glycol (Polyethylene (Miralax) 17 Gm Pack) 17 gm PO Q6 KEO Stop: 09/09/24 05:59 Senna/Docusate Sodium (Docusate Sodium/Senna 50/8.6mg Tab) 2 tab PO HS KEO Stop: 09/08/24 20:59 Sertraline HCl (Sertraline Hcl 50 Mg Tablet) 50 mg PO QAM KEO Stop: 09/09/24 08:59 Sodium Biphosphate/Sodium Phosphate (Sod Phosphate/Sod Biphosphate Enema 132 Ml Btl) 132 ml TX ONE PRN PRN Reason: Constipation Stop: 09/08/24 14:29 Tramadol HCl (Tramadol Hcl 50 Mg Tablet) 50 - 100 mg PO Q4H PRN PRN Reason: Moderate-Severe pain & Pre PT Stop: 09/08/24 14:29 ECG Additional Comments: I have independently reviewed and interpreted patient's admitting EKG which revealed: 74, NSR, qtc wnl
[2024-08-09] MEDS: SODIUM CHLORIDE 0.9% 500 ML IV ONE (16:09)
[2024-08-09 16:22] LABS: Hematocrit (blood only) 27.8 % (42.0-52.0); Hemoglobin 9.1 g/dl (14.0-18.0)
[2024-08-09] MEDS: LANTUS PER UNIT CHARGE SC ONE (16:23)
[2024-08-09] MEDS: SODIUM CHLORIDE 0.9% 1,000 ML IV SCH (16:47)
[2024-08-09] MEDS: INSULIN ASPART PER UNIT CHARGE SC SCH (17:02)
[2024-08-09] MEDS: SODIUM CHLORIDE 0.9% 1,000 ML IV ONE ×2 (17:21→18:43)
[2024-08-09 19:08] LABS: Hematocrit (blood only) 25.7 % (42.0-52.0); Hemoglobin 8.3 g/dl (14.0-18.0)
[2024-08-09 19:24] LABS: BUN Creatinine Ratio 18.2 (10-20); Calcium 7.2 mg/dl (8.6-10.3); Creatinine Clr Calc Pharmacy 59.3 ml/min; Potassium 5.1 mmol/L (3.5-5.1)
[2024-08-09] MEDS: CLINDAMYCIN/D5W 600 MG/50 ML BAG IV SCH (20:42)
[2024-08-09] MEDS ORDERED: glipiZIDE 5 MG TAB PO SCH (21:00)
[2024-08-09] MEDS: DOCUSATE SODIUM/SENNA 50/8.6MG TAB PO SCH (21:39)
[2024-08-09 23:37] LABS: Hematocrit (blood only) 24.8 % (42.0-52.0); Hemoglobin 8.2 g/dl (14.0-18.0)
[2024-08-10] MEDS: ACETAMINOPHEN 1,000 MG/100 ML VIAL IV PRN (00:01)
[2024-08-10] MEDS: POLYETHYLENE (MIRALAX) 17 GM PACK PO SCH (05:30)
[2024-08-10 06:13] LABS: Basophils # (auto) 0.01 K/uL (0.00-0.20); Basophils % (auto) 0.1 %; Eosinophils # (auto) 0.02 K/uL (0.00-0.50); Eosinophils % (auto) 0.2 %; Hematocrit (blood only) 24.5 % (42.0-52.0); Hemoglobin 7.8 g/dl (14.0-18.0); Immature Granulocytes # (auto) 0.04 K/uL (0.01-0.20); Immature Granulocytes % (auto) 0.4 %; Lymphocytes # (auto) 0.72 K/uL (1.20-3.40); Lymphocytes % (auto) 7.8 %; Mean Corpuscular Hemoglobin 29.7 pg (25.0-34.0); Mean Corpuscular Hgb Conc 31.8 g/dL (32.0-36.0); Mean Corpuscular Volume 93.2 fL (80.0-100.0); Mean Platelet Volume 10.3 fL (9.4-12.4); Monocytes # (auto) 0.85 K/uL (0.11-0.59); Monocytes % (auto) 9.2 %; Neutrophils # (auto) 7.64 K/uL (1.40-6.50); Neutrophils % (auto) 82.3 %; Platelet Count 120 K/uL (130-400); RDW Coefficient of Variation 13.8 % (11.5-14.5); RDW Standard Deviation 46.7 fL (36.4-46.3); Red Blood Count 2.63 M/uL (4.70-6.10); White Blood Count 9.28 K/ul (4.8-10.8)
[2024-08-10 06:32] LABS: BUN Creatinine Ratio 21.8 (10-20); Creatinine Clr Calc Pharmacy 80.5 ml/min; Potassium 4.6 mmol/L (3.5-5.1)
[2024-08-10 06:41] LABS: RBC Morphology Unremarkable
[2024-08-10] MEDS: SERTRALINE HCL 50 MG TABLET PO SCH (08:19)
[2024-08-10] MEDS: dexAMETHasone 6 MG in SYRINGE 0 ML IV SCH (08:19)
[2024-08-10] MEDS: ATORVASTATIN 20 MG TAB PO SCH (08:21)
[2024-08-10] MEDS: DULoxetine HCL 30 MG CAP PO SCH (08:21)
[2024-08-10] MEDS: PANTOprazole 40 MG TAB PO SCH (08:21)
[2024-08-10] MEDS ORDERED: SODIUM CHLORIDE 0.9% 50 ML IV PRN (08:24)
[2024-08-10] MEDS ORDERED: SODIUM CHLORIDE 0.9% 100 ML IV PRN (08:24)
--- NOTE | 2024-08-10 08:24 | Orthopedic Progress Note ---
Date of Service August 10, 2024 Assessment & Plan (1) Spondylolisthesis, lumbar region: Plan: At this time would like to initiate physical therapy. Will transfer him 1 more unit of blood today as anticipated continue decline in his hematocrit over the course of the next 24 hours. Hopefully will be able to tolerate bed to chair today and even ambulating in the room. Admission and Anticipated Discharge Date Admission Date: August 09, 2024 Subjective Patient's back pain is controlled. Denies any leg pain. He is struggling with hypotension. Physical Exam Physical Exam: Patient is currently in bed. He is neurologically intact. Appears comfortable. Results & Data Vital Signs (Past 12 Hours) Vital Signs Temp Pulse Resp BP Pulse Ox O2 Del Method O2 Flow Rate 08/10/24 07:11 36.7 C 84 18 98/59 L 95 Room Air 08/10/24 04:46 18 128/74 99 Room Air 08/10/24 03:24 36.5 C 85 18 113/72 99 Nasal Cannula 2 08/09/24 23:50 36.8 C 97 H 18 104/65 97 Nasal Cannula 3 08/09/24 21:28 36.7 C 101 H 18 100/61 97 Nasal Cannula 3 08/09/24 20:47 104/67 97 Nasal Cannula 3 08/09/24 20:30 Nasal Cannula 3 Queries Orthopedic Spine Acute Posthemorrhagic Anemia: Yes Obesity: Yes
[2024-08-10] MEDS: LANTUS PER UNIT CHARGE SC SCH (08:29)
--- NOTE | 2024-08-10 08:59 | Pharmacy Report ---
Pharmacy Glycemic Short Note 2 - Date of Service August 10, 2024 - Glycemic Short BSG Results (Last 24 hours): 08/09/24 08/09/24 08/09/24 10:46 12:27 13:23 Glucose POC Glucose 273 H POC Glucose (other) 150 H 216 H 08/09/24 08/09/24 08/09/24 15:22 16:25 17:50 Glucose Cancelled POC Glucose 303 H* 314 H* POC Glucose (other) 08/09/24 08/09/24 08/10/24 18:50 21:25 05:31 Glucose 288 H 190 H POC Glucose 249 H POC Glucose (other) 08/10/24 07:21 Glucose POC Glucose 192 H POC Glucose (other) OUTPATIENT ANTIDIABETIC REGIMEN: * glipizide 2.5mg po BID * metformin 500mg po BID HbA1c: 7% (07/14/24) ASSESSMENT: 08/10/24: * POD #1 * Patient hyperglycemic postoperatively yesterday - will intensify insulin regimen today * Ordered dexamethasone 6 mg IV daily x 3 days 08/09/24: * 74 year old male admitted 08/09 for spinal decompression and fusion (POD #0). Pharmacy was consulted for glycemic management postop. * BSG preop was 122mg/dL and post op was 273mg/dL. He did receive dexamethasone 8mg iv x 1 preop. Lantus 20 units SQ x 1 was ordered and he was started on a weight based bolus insulin regimen with a stress of 2. PLAN FOR INPATIENT GLYCEMIC CONTROL: * Hold outpatient oral diabetes medications * Basal insulin * Lantus 30 units SC daily w/ IV dexamethasone (~0.4 unit/kg of adjusted body weight) * Lantus 10 units SC x 1 w/ lunch * Plan to increase to 40 units SC daily starting tomorrow 08/11/24 * Bolus insulin * NovoLog per scale ACHS or Q6hrs while NPO * Goal Range: Low 110 mg/dL - High 140 mg/dL * Correction Factor: 15 mg/dL/unit * Nutritional / Prandial insulin per carb ratio of 1 unit per 5 grams CHO consumed
[2024-08-10] MEDS: oxyCODONE HCL IR 5 MG TAB (IMMEDIATE RELEASE) PO PRN (09:50)
--- NOTE | 2024-08-10 10:28 | Hospitalist Progress Note ---
Date of Service August 10, 2024 Assessment & Plan (1) Spondylolisthesis, lumbar region: (2) Acute blood loss as cause of postoperative anemia: (3) Postoperative hypotension: (4) Diabetes mellitus, type 2: Plan This is a 74 yr old M who has a significant PMH of HTN, HLD, T2DM, CARRI on CPAP, GERD who presents for elective lumbar procedure by Dr. Rizvi. #S/P L1-S1 decompression and T12-L1 fusion POD #[address] Rizvi #Acute blood loss anemia as cause of post operative anemia with EBL 2,150ml pt admitted to medical pain/wound management per ortho Hypotension resolving - pt required 2.5L of IVF bolus last evening He received 1 unit PRBC yesterday, hgb 7.[address] Rizvi ordered 1 more additional unit of PRBC today Keep ASA on hold until hgb stabilizes will hold all antihypertensives until bp consistently normalizes #Hyperkalemia: resolved, holding lisinopril, low k diet #Hypocalcemia: Ca 7.0 today, will check ionized ca and bmp in a.m., give 1g calcium gluconate x 1 now, start calcium 500mg daily in a.m., check vit D level #T2DM, controlled a1c 7.0 in July on metformin, glipizide, hold for now glycemic pharmacy on board - appreciate management post op pt is hyperglycemic 2/2 steroids #HTN on lisinopril and HCTZ as outpt place on hold until BP improves #CARRI on cpap: continue cpap at hs #DVT ppx: SCDS FULL CODE PCP: Lee Ann Borrero Dispo: admit to Med/surg, per primary Pt was seen and examined in collaboration with please see addendum I spent a total of 42 minutes coordinating, documenting and providing care for this patient excluding time spent in the performance of separately billed services or time spent by another provider/QHP. Thank you for this consultation. We will follow the patient with you during their hospital stay. You can reach a member of the [facility] Hospitalist Team 23/12 via hospitalist role on tiger text. Admission and Anticipated Discharge Date Admission Date: August 09, 2024 Supervising Physician Co-Signing Physician Notes Patient is seen and examined at bedside. States having significant pain at surgical site, nonradiating.+ Flatus, no bowel movement today. Feels tired. Denies any nausea, vomiting, chest pain, dyspnea. On exam patient is obese, no apparent distress, normocephalic atraumatic, EOMI, normal breath sounds, clear to auscultation, S1-S2, trace pedal edema, no murmur, abdomen soft, nontender, normal bowel sounds, alert, awake, oriented, grossly no focal deficits,+ surgical site in dressing, drain. Patient is consulted for postop medical management after having lumbar decompression, fusion surgery by Dr. Rizvi. Postoperative acute blood loss anemia noted. Received PRBCs. Monitor H&H and transfuse as needed. Also being treated for hyperkalemia, hypocalcemia, diabetes. Hyperkalemia resolved. Continue to hold lisinopril for now. Replete electrolytes as needed. Check vitamin D levels. Continue insulin while hospitalized for management of diabetes mellitus. Activity, wound care, DVT prophylaxis as per primary team. I personally interviewed and examined the patient at bedside. I have reviewed the advanced practitioner's documentation on the date of service referred in note and agree with plan. Patient's care is coordinated with Shana Salinas PA-C. Please refer to the documentation above for details of patient's presentation and for discussion of other issues. I spent a total of 25minutes coordinating, documenting, and providing care for this patient excluding time spent in the performance of separately billed services or time spent by another provider/QHP. Subjective Pt seen and evaluated in room 318 with nurse Ravi at bedside. Hx obtained from pt and nurse. He feels well this morning. He reports wishing to get out of bed. He has incisional back tenderness. He denies pain to lower ext, just his chronic hip pain. He denies dizziness, lightheaded, chest pain, sob, n/v. He is tolerating his diet. Review of Systems Review of Systems: All systems reviewed & are unremarkable except as noted in HPI & below Physical Exam Physical Exam: Gen: WD/WN, M, lying in bed, NAD, A&O x3 HEENT: Normocephalic, atraumatic, conjunctivae moist, sclerae anicteric, mucous membranes moist. Lung: Clear to Auscultation bilaterally, no wheezes/rales/rhonchi Heart: Regular rate, regular rhythm, no murmurs, rubs, or gallops Abdomen: Soft, NT, ND +BS x 4, protuberant abd Extremities: No edema, baldo drain with serosang drainage Skin: Warm, no rash, negative turgor. : huitron intact draining yellow urine Results & Data Results & Data Vital Signs (Past 12 Hours) Vital Signs Temp Pulse Pulse Resp BP BP Pulse Ox 08/10/24 09:52 36.6 C 89 18 122/67 97 08/10/24 09:36 36.5 C 91 H 18 116/70 94 08/10/24 08:46 147/69 H 08/10/24 08:37 109/62 08/10/24 07:11 36.7 C 84 18 98/59 L 95 08/10/24 04:46 18 128/74 99 08/10/24 03:24 36.5 C 85 18 113/72 99 08/09/24 23:50 36.8 C 97 H 18 104/65 97 O2 Del Method O2 Flow Rate 08/10/24 09:52 08/10/24 09:36 08/10/24 08:46 08/10/24 08:37 08/10/24 07:11 Room Air 08/10/24 04:46 Room Air 08/10/24 03:24 Nasal Cannula 2 08/09/24 23:50 Nasal Cannula 3 Laboratory Results I have independently reviewed and interpreted patient's cbc, bmp, mag Medications Administered Current Inpatient Medications Acetaminophen (Acetaminophen 500 Mg Tab) 1,000 mg PO Q8H PRN PRN Reason: MILD Pain Scale 1,2,3 & Pre PT Stop: 09/08/24 14:29 Al Hydrox/Mg Hydrox/Simethicone (Aluminum/Magnesium Susp 30 Ml Udc) 30 ml PO Q6H PRN PRN Reason: Dyspepsia Stop: 09/08/24 14:29 Aspirin (Aspirin 81 Mg Ectab) 81 mg PO QAM KEO Stop: 09/09/24 08:59 Atorvastatin Calcium (Atorvastatin 20 Mg Tab) 20 mg PO QAM KEO Stop: 09/09/24 08:59 Last Admin: 08/10/24 08:21 Dose: 20 mg Bisacodyl (Bisacodyl 10 Mg Supp) 10 mg [place] DAILY PRN PRN Reason: Constipation Stop: 09/08/24 14:29 Dextrose (Dextrose 50% 50 Ml Syringe) 25 - 50 ml IV UD PRN; Protocol PRN Reason: Hypoglycemia Protocol Stop: 09/08/24 14:59 Diphenhydramine HCl (Diphenhydramine Capsule 25 Mg Cap) 25 mg PO Q6H PRN PRN Reason: Allergic Rhinitis/Insomnia Stop: 09/08/24 14:29 Duloxetine HCl (Duloxetine Hcl 30 Mg Cap) 30 mg PO [facility] Stop: 09/09/24 08:59 Last Admin: 08/10/24 08:21 Dose: 30 mg Famotidine (Famotidine 20 Mg Tab) 20 mg PO Q12H PRN PRN Reason: Dyspepsia Stop: 09/08/24 14:29 Glucagon (Glucagon For Inj 1 Mg Vial) 1 mg SQ UD PRN; Protocol PRN Reason: Hypoglycemia Protocol Stop: 09/08/24 14:59 Glucose (Glucose 40% Gel 15 Gm Tube) 15 - 30 gm PO UD PRN; Protocol PRN Reason: Hypoglycemia Protocol Stop: 09/08/24 14:59 Glucose (Glucose 10 Tab/Tube) 4 - 8 tab PO UD PRN; Protocol PRN Reason: Hypoglycemia Protocol Stop: 09/08/24 14:59 Hydrochlorothiazide (Hydrochlorothiazide 25 Mg Tab) 25 mg PO [facility] Stop: 09/09/24 08:59 Hydromorphone HCl (Hydromorphone Inj 0.5 Mg/0.5 Ml Syr) 0.5 mg IV Q3H PRN PRN Reason: MODERATE Pain (Scale 4,5,6) & Pre PT Stop: 08/23/24 14:29 Hydromorphone HCl (Hydromorphone Inj 1 Mg/Ml Syringe) 1 mg IV Q3H PRN PRN Reason: SEVERE Pain (Scale 7,8,9,10) Stop: 08/23/24 14:29 Hydroxyzine HCl (Hydroxyzine Hcl 25 Mg Tab) 25 mg PO Q8H PRN PRN Reason: Anxiety Stop: 09/08/24 14:29 Acetaminophen (Ofirmev) 1,000 mg in 100 mls @ 400 mls/hr IV Q8H PRN PRN Reason: Pain Rating 1-3 & Pre PT Stop: 08/10/24 14:31 Last Infusion: 08/10/24 00:24 Dose: Infused Promethazine HCl (Phenergan) 12.5 mg in 50.5 mls @ 202 mls/hr IV Q6H PRN PRN Reason: Nausea And Vomiting Stop: 09/08/24 14:29 Dexamethasone 6 mg/ Syringe 1.5 mls @ 1 mls/min IV DAILY [facility] Stop: 08/12/24 09:02 Last Admin: 08/10/24 08:19 Dose: 1 mls/min Sodium Chloride (Nss) 1,000 mls @ 125 mls/hr IV .Q8H KEO Stop: 08/10/24 15:59 Last Admin: 08/10/24 09:53 Dose: 125 mls/hr Sodium Chloride (Nss) 100 mls @ 15 mls/hr IV .Q6H40M PRN PRN Reason: For Transfusion Duration Stop: 08/10/24 16:24 Sodium Chloride (Nss) 50 mls @ 15 mls/hr IV .Q3H20M PRN PRN Reason: For Transfusion Duration Stop: 08/10/24 16:24 Influenza Virus Vaccine Quadrival (Do Not Administer Flu Vaccine) 1 each N/A PRN PRN PRN Reason: Notification Stop: 09/08/24 14:29 Insulin Aspart (Insulin Aspart Per Unit Charge) 0 units SC ACHS [facility] Stop: 09/08/24 16:29 Last Admin: 08/10/24 08:29 Dose: 15 units Insulin Glargine (Lantus Per Unit Charge) 30 units SC DAILY [facility] Stop: 08/12/24 09:01 Last Admin: 08/10/24 08:29 Dose: 30 units Lisinopril (Lisinopril 20 Mg Tab) 20 mg PO QAM [facility] Stop: 09/09/24 08:59 Lorazepam (Lorazepam 0.5 Mg Tab) 0.5 mg PO Q8H PRN PRN Reason: Sedation/Anxiety Stop: 09/08/24 14:29 Lorazepam (Lorazepam 2 Mg/1 Ml Vial) 0.5 mg IV Q8H PRN PRN Reason: Sedation/Anxiety Stop: 09/08/24 14:29 Magnesium Hydroxide (Magnesium Hydroxide Susp 30 Ml Udc) 30 ml PO Q24H PRN PRN Reason: Constipation Stop: 09/08/24 14:29 Metoclopramide HCl (Metoclopramide Hcl Inj 5 Mg/Ml 2 Ml Vial) 10 mg IV Q6H PRN PRN Reason: Nausea &/or Vomiting Stop: 09/08/24 14:29 Miscellaneous (Carbohydrates For Hypoglycemia ) 15 - 30 gm PO UD PRN PRN Reason: Hypoglycemia Treatment Stop: 09/08/24 14:59 Miscellaneous Information (Pharmacy Glycemic Mgmt Consult) 1 each N/A UD PRN PRN Reason: Consult Stop: 09/08/24 14:29 Naloxone HCl (Naloxone Hcl 0.4 Mg/1 Ml Vial/Carp) 0.1 mg IV Q5M PRN PRN Reason: Oversedation/Resp depression Stop: 09/08/24 14:29 Ondansetron HCl (Ondansetron Inj 2 Mg/Ml 2 Ml Vial) 4 mg IV Q6H PRN PRN Reason: Nausea &/or Vomiting Stop: 09/08/24 14:29 Ondansetron HCl (Ondansetron 4 Mg Od Tab) 4 mg PO Q6H PRN PRN Reason: Nausea Stop: 09/08/24 14:29 Oxycodone HCl (Oxycodone Hcl Ir 5 Mg Tab (Immediate Release)) 5 - 10 mg PO Q4H PRN PRN Reason: Pain & Pre PT Stop: 08/23/24 14:29 Last Admin: 08/10/24 09:50 Dose: 5 mg Pantoprazole Sodium (Pantoprazole 40 Mg Tab) 40 mg PO QAM [facility] Stop: 09/09/24 08:59 Last Admin: 08/10/24 08:21 Dose: 40 mg Pneumococcal Polyvalent Vaccine (Do Not Administer Pneumococcal Vaccine) 1 each N/A PRN PRN PRN Reason: Notification Stop: 09/08/24 14:29 Polyethylene Glycol (Polyethylene (Miralax) 17 Gm Pack) 17 gm PO Q6 [facility] Stop: 09/09/24 05:59 Last Admin: 08/10/24 05:30 Dose: 17 gm Senna/Docusate Sodium (Docusate Sodium/Senna 50/8.6mg Tab) 2 tab PO HS [facility] Stop: 09/08/24 20:59 Last Admin: 08/09/24 21:39 Dose: 2 tab Sertraline HCl (Sertraline Hcl 50 Mg Tablet) 50 mg PO QAM [facility] Stop: 09/09/24 08:59 Last Admin: 08/10/24 08:19 Dose: 50 mg Sodium Biphosphate/Sodium Phosphate (Sod Phosphate/Sod Biphosphate Enema 132 Ml Btl) 132 ml OR ONE PRN PRN Reason: Constipation Stop: 09/08/24 14:29 Tramadol HCl (Tramadol Hcl 50 Mg Tablet) 50 - 100 mg PO Q4H PRN PRN Reason: Moderate-Severe pain & Pre PT Stop: 09/08/24 14:29
[2024-08-10] MEDS: CALCIUM GLUCONATE 1,000 MG/60 ML BAG IV STA (13:00)
[2024-08-10] MEDS: LANTUS PER UNIT CHARGE SC ONE (13:05)
[2024-08-11 07:11] LABS: Hematocrit (blood only) 26.5 % (42.0-52.0); Hemoglobin 8.8 g/dl (14.0-18.0); Mean Corpuscular Hgb Conc 33.2 g/dL (32.0-36.0); Mean Corpuscular Volume 90.4 fL (80.0-100.0); Mean Platelet Volume 9.7 fL (9.4-12.4); Platelet Count 136 K/uL (130-400); RDW Standard Deviation 46.1 fL (36.4-46.3); Red Blood Count 2.93 M/uL (4.70-6.10); White Blood Count 9.26 K/ul (4.8-10.8)
[2024-08-11 07:53] LABS: BUN Creatinine Ratio 17.1 (10-20); Creatinine Clr Calc Pharmacy 116.2 ml/min; Potassium 3.8 mmol/L (3.5-5.1)
[2024-08-11] MEDS: CALCIUM CARBONATE 500 MG CHEWABLE TAB PO SCH (08:44)
[2024-08-11] MEDS: ACETAMINOPHEN 500 MG TAB PO PRN (08:45)
[2024-08-11] MEDS: LANTUS PER UNIT CHARGE SC SCH (08:46)
--- NOTE | 2024-08-11 10:21 | Orthopedic Progress Note ---
Date of Service August 11, 2024 Assessment & Plan (1) Spondylolisthesis, lumbar region: Plan: At this time continue physical therapy monitor his IVONE operatively discharge home in the next few days. Admission and Anticipated Discharge Date Admission Date: August 09, 2024 Subjective Back pain is controlled leg pain improved. Tolerating physical therapy. Physical Exam Physical Exam: Patient seen with the bedside. Is good strength testing. Sensory is intact. Results & Data Vital Signs (Past 12 Hours) Vital Signs Temp Pulse Resp BP Pulse Ox O2 Del Method 08/11/24 07:51 36.6 C 85 19 132/80 98 Room Air Queries Orthopedic Spine Acute Posthemorrhagic Anemia: Yes Obesity: Yes
--- NOTE | 2024-08-11 11:10 | Hospitalist Progress Note ---
Date of Service August 11, 2024 Assessment & Plan (1) Spondylolisthesis, lumbar region: (2) Acute blood loss as cause of postoperative anemia: (3) Postoperative hypotension: (4) Diabetes mellitus, type 2: Plan This is a 74 yr old M who has a significant PMH of HTN, HLD, T2DM, CARRI on CPAP, GERD who presents for elective lumbar procedure by Dr. Rizvi. #S/P L1-S1 decompression and T12-L1 fusion POD #[address] Rizvi #Acute blood loss anemia as cause of post operative anemia with EBL 2,150ml pt admitted to medical pain/wound management per ortho Hypotension resolved He is s/p 2 units PRBC, hgb today is 8.8 Keep ASA on hold until hgb stabilizes - if remains stable tomorrow 08/12 would recommend resuming #Hyperkalemia: resolved, #Hypocalcemia: received 1g calc gluconate on 08/11. awaiting vit d level, although pt has allergy to vit d formulations with itching, ionized calc normal today, will need to follow as outpt #T2DM, controlled a1c 7.0 in July on metformin, glipizide, hold for now glycemic pharmacy on board - appreciate management BSG improving #HTN on lisinopril and HCTZ as outpt BP normalized today, will follow and if remains stable recommend resume on 08/12 #CARRI on cpap: continue cpap at hs #DVT ppx: SCDS FULL CODE PCP: Lee Ann Borrero Dispo: admit to Med/surg, per primary Pt was seen and examined in collaboration with Dr. Neves please see addendum I spent a total of 42 minutes coordinating, documenting and providing care for this patient excluding time spent in the performance of separately billed services or time spent by another provider/QHP. Thank you for this consultation. We will follow the patient with you during their hospital stay. You can reach a member of the [facility] Hospitalist Team 23/12 via hospitalist role on tiger text. Admission and Anticipated Discharge Date Admission Date: August 09, 2024 Supervising Physician Co-Signing Physician Notes I have seen and discussed the case with the collaborating advanced practitioner. I agree with the above progress note. I have reviewed and confirmed the patients medical history, the findings on physical examination, and the patients diagnosis and treatment plan with Rita SCHMIDT and agree with the information documented. Mr. Bravo is a 74 year old gentleman who is post op L1-S1 decompression complicated by acute blood loss anemia s/p postoperative losses. Patient was 12.2 preoperatively, down as low as 7.8, now s/p 2 U RBRC. Hgb at 8.8 this morning. Will monitor HH closely for further signs of loss. Pt to return home with once hgb stable and cleared by ortho I spent a total of 15 minutes coordinating, documenting, and providing care for this patient excluding time spent in the performance of separately billed services. All of the aforementioned completed outside of collaborating with the assigned advanced practitioner for a full treatment plan. I have reviewed the advanced practitioner's documentation, and I agree with, and take responsibility for the plan of care Subjective Patient was seen in 318 with nurse at bedside. He states he feels better than yesterday, "but not much." He reports coughing and have a sharp stabbing pain go down his right leg for a second and it resolved. It scared him as he thought maybe a nerve was pinched. He denies f/c/s, chest pain, sob, n/v. He is tolerating diet. Review of Systems Review of Systems: All systems reviewed & are unremarkable except as noted in HPI & below Physical Exam Physical Exam: Gen: WD/WN, M, lying in bed, NAD, A&O x3 HEENT: Normocephalic, atraumatic, conjunctivae moist, sclerae anicteric, mucous membranes moist. Lung: Clear to Auscultation bilaterally, no wheezes/rales/rhonchi Heart: Regular rate, regular rhythm, no murmurs, rubs, or gallops Abdomen: Soft, NT, ND +BS x 4, protuberant abd Extremities: No edema, baldo drain with serosang drainage Skin: Warm, no rash, negative turgor. : huitron intact draining yellow urine Results & Data Results & Data Vital Signs (Past 12 Hours) Vital Signs Temp Pulse Resp BP Pulse Ox O2 Del Method 08/11/24 07:51 36.6 C 85 19 132/80 98 Room Air Laboratory Results I have independently reviewed and interpreted patient's cbc, bmp, ionized calcium Short CBC 08/11/24 Range/Units 06:45 WBC 9.26 (4.8-10.8) K/ul Hgb 8.8 L (14.0-18.0) g/dl Hct 26.5 L (42.0-52.0) % Plt Count 136 (130-400) K/uL BMP 08/11/24 06:45 Sodium 138 Potassium 3.8 Chloride 107 Carbon Dioxide 25 BUN 12 Creatinine 0.70 D Glucose 110 H Calcium 8.0 L Medications Administered Current Inpatient Medications Acetaminophen (Acetaminophen 500 Mg Tab) 1,000 mg PO Q8H PRN PRN Reason: MILD Pain Scale 1,2,3 & Pre PT Stop: 09/08/24 14:29 Last Admin: 08/11/24 08:45 Dose: 1,000 mg Al Hydrox/Mg Hydrox/Simethicone (Aluminum/Magnesium Susp 30 Ml Udc) 30 ml PO Q6H PRN PRN Reason: Dyspepsia Stop: 09/08/24 14:29 Aspirin (Aspirin 81 Mg Ectab) 81 mg PO [facility] Stop: 09/09/24 08:59 Atorvastatin Calcium (Atorvastatin 20 Mg Tab) 20 mg PO [facility] Stop: 09/09/24 08:59 Last Admin: 08/11/24 08:36 Dose: 20 mg Bisacodyl (Bisacodyl 10 Mg Supp) 10 mg [place] DAILY PRN PRN Reason: Constipation Stop: 09/08/24 14:29 Calcium Carbonate (Calcium Carbonate 500 Mg Chewable Tab) 500 mg PO DAILY [facility] Stop: 09/10/24 08:59 Last Admin: 08/11/24 08:44 Dose: 500 mg Dextrose (Dextrose 50% 50 Ml Syringe) 25 - 50 ml IV UD PRN; Protocol PRN Reason: Hypoglycemia Protocol Stop: 09/08/24 14:59 Diphenhydramine HCl (Diphenhydramine Capsule 25 Mg Cap) 25 mg PO Q6H PRN PRN Reason: Allergic Rhinitis/Insomnia Stop: 09/08/24 14:29 Duloxetine HCl (Duloxetine Hcl 30 Mg Cap) [facility] Stop: 09/09/24 08:59 Last Admin: 08/11/24 08:36 Dose: 30 mg Famotidine (Famotidine 20 Mg Tab) 20 mg PO Q12H PRN PRN Reason: Dyspepsia Stop: 09/08/24 14:29 Glucagon (Glucagon For Inj 1 Mg Vial) 1 mg SQ UD PRN; Protocol PRN Reason: Hypoglycemia Protocol Stop: 09/08/24 14:59 Glucose (Glucose 40% Gel 15 Gm Tube) 15 - 30 gm PO UD PRN; Protocol PRN Reason: Hypoglycemia Protocol Stop: 09/08/24 14:59 Glucose (Glucose 10 Tab/Tube) 4 - 8 tab PO UD PRN; Protocol PRN Reason: Hypoglycemia Protocol Stop: 09/08/24 14:59 Hydrochlorothiazide (Hydrochlorothiazide 25 Mg Tab) 25 mg PO QAM [facility] Stop: 09/09/24 08:59 Hydromorphone HCl (Hydromorphone Inj 0.5 Mg/0.5 Ml Syr) 0.5 mg IV Q3H PRN PRN Reason: MODERATE Pain (Scale 4,5,6) & Pre PT Stop: 08/23/24 14:29 Hydromorphone HCl (Hydromorphone Inj 1 Mg/Ml Syringe) 1 mg IV Q3H PRN PRN Reason: SEVERE Pain (Scale 7,8,9,10) Stop: 08/23/24 14:29 Hydroxyzine HCl (Hydroxyzine Hcl 25 Mg Tab) 25 mg PO Q8H PRN PRN Reason: Anxiety Stop: 09/08/24 14:29 Promethazine HCl (Phenergan) 12.5 mg in 50.5 mls @ 202 mls/hr IV Q6H PRN PRN Reason: Nausea And Vomiting Stop: 09/08/24 14:29 Dexamethasone 6 mg/ Syringe 1.5 mls @ 1 mls/min IV DAILY [facility] Stop: 08/12/24 09:02 Last Admin: 08/11/24 08:36 Dose: 1 mls/min Influenza Virus Vaccine Quadrival (Do Not Administer Flu Vaccine) 1 each N/A PRN PRN PRN Reason: Notification Stop: 09/08/24 14:29 Insulin Aspart (Insulin Aspart Per Unit Charge) 0 units SC ACHS [facility] Stop: 09/08/24 16:29 Last Admin: 08/11/24 08:45 Dose: 10 units Insulin Glargine (Lantus Per Unit Charge) 40 units SC DAILY [facility] Stop: 08/12/24 09:01 Last Admin: 08/11/24 08:46 Dose: 40 units Lisinopril (Lisinopril 20 Mg Tab) 20 mg PO QAM [facility] Stop: 09/09/24 08:59 Lorazepam (Lorazepam 0.5 Mg Tab) 0.5 mg PO Q8H PRN PRN Reason: Sedation/Anxiety Stop: 09/08/24 14:29 Lorazepam (Lorazepam 2 Mg/1 Ml Vial) 0.5 mg IV Q8H PRN PRN Reason: Sedation/Anxiety Stop: 09/08/24 14:29 Magnesium Hydroxide (Magnesium Hydroxide Susp 30 Ml Udc) 30 ml PO Q24H PRN PRN Reason: Constipation Stop: 09/08/24 14:29 Metoclopramide HCl (Metoclopramide Hcl Inj 5 Mg/Ml 2 Ml Vial) 10 mg IV Q6H PRN PRN Reason: Nausea &/or Vomiting Stop: 09/08/24 14:29 Miscellaneous (Carbohydrates For Hypoglycemia ) 15 - 30 gm PO UD PRN PRN Reason: Hypoglycemia Treatment Stop: 09/08/24 14:59 Miscellaneous Information (Pharmacy Glycemic Mgmt Consult) 1 each N/A UD PRN PRN Reason: Consult Stop: 09/08/24 14:29 Naloxone HCl (Naloxone Hcl 0.4 Mg/1 Ml Vial/Carp) 0.1 mg IV Q5M PRN PRN Reason: Oversedation/Resp depression Stop: 09/08/24 14:29 Ondansetron HCl (Ondansetron Inj 2 Mg/Ml 2 Ml Vial) 4 mg IV Q6H PRN PRN Reason: Nausea &/or Vomiting Stop: 09/08/24 14:29 Ondansetron HCl (Ondansetron 4 Mg Od Tab) 4 mg PO Q6H PRN PRN Reason: Nausea Stop: 09/08/24 14:29 Oxycodone HCl (Oxycodone Hcl Ir 5 Mg Tab (Immediate Release)) 5 - 10 mg PO Q4H PRN PRN Reason: Pain & Pre PT Stop: 08/23/24 14:29 Last Admin: 08/11/24 08:44 Dose: 10 mg Pantoprazole Sodium (Pantoprazole 40 Mg Tab) 40 mg PO QAM [facility] Stop: 09/09/24 08:59 Last Admin: 08/11/24 08:36 Dose: 40 mg Pneumococcal Polyvalent Vaccine (Do Not Administer Pneumococcal Vaccine) 1 each N/A PRN PRN PRN Reason: Notification Stop: 09/08/24 14:29 Polyethylene Glycol (Polyethylene (Miralax) 17 Gm Pack) 17 gm PO Q6 [facility] Stop: 09/09/24 05:59 Last Admin: 08/11/24 06:00 Dose: 17 gm Senna/Docusate Sodium (Docusate Sodium/Senna 50/8.6mg Tab) 2 tab PO HS [facility] Stop: 09/08/24 20:59 Last Admin: 08/10/24 20:52 Dose: 2 tab Sertraline HCl (Sertraline Hcl 50 Mg Tablet) 50 mg PO QAM [facility] Stop: 09/09/24 08:59 Last Admin: 08/11/24 08:36 Dose: 50 mg Sodium Biphosphate/Sodium Phosphate (Sod Phosphate/Sod Biphosphate Enema 132 Ml Btl) 132 ml [place] ONE PRN PRN Reason: Constipation Stop: 09/08/24 14:29 Tramadol HCl (Tramadol Hcl 50 Mg Tablet) 50 - 100 mg PO Q4H PRN PRN Reason: Moderate-Severe pain & Pre PT Stop: 09/08/24 14:29
[2024-08-12] MEDS: MAGNESIUM HYDROXIDE SUSP 30 ML UDC PO PRN (05:47)
[2024-08-12 07:20] LABS: Hemoglobin 8.6 g/dl (14.0-18.0); Mean Corpuscular Hemoglobin 29.9 pg (25.0-34.0); Mean Corpuscular Hgb Conc 33.1 g/dL (32.0-36.0); Mean Corpuscular Volume 90.3 fL (80.0-100.0); Platelet Count 134 K/uL (130-400); RDW Coefficient of Variation 13.9 % (11.5-14.5); RDW Standard Deviation 46.1 fL (36.4-46.3); Red Blood Count 2.88 M/uL (4.70-6.10); White Blood Count 8.47 K/ul (4.8-10.8)
--- NOTE | 2024-08-12 07:59 | Hospitalist Progress Note ---
Date of Service August 12, 2024 Assessment & Plan (1) Spondylolisthesis, lumbar region: (2) Acute blood loss as cause of postoperative anemia: (3) Postoperative hypotension: (4) Diabetes mellitus, type 2: Plan This is a 74 yr old M who has a significant PMH of HTN, HLD, T2DM, CARRI on CPAP, GERD who presents for elective lumbar procedure by Dr. Rizvi. #S/P L1-S1 decompression and T12-L1 fusion POD #[address] Rizvi #Acute blood loss anemia as cause of post operative anemia with EBL 2,150ml pt admitted to med/surg pain/wound management per ortho Hypotension resolved He is s/p 2 units PRBC, hgb 8.8 -> 8.6 Plan to resume aspirin tomorrow #Hyperkalemia: resolved #Hypocalcemia: received 1g calc gluconate on 08/11. awaiting vit d level, although pt has allergy to vit d formulations with itching, ionized calc normal today, will need to follow as outpt #Vitamin D deficiency: Pt vitamin D 7.2. Discussed with him treatment options. Pt with hx of itching with vitamin D supplementation many years ago. Agreeable to trying once weekly Vit D2 50,000 units x 12 weeks and repeat vit D in 12 weeks. If itching returns he is urged to d/c and talk to PCP #T2DM, controlled a1c 7.0 in July on metformin, glipizide, hold for now glycemic pharmacy on board - appreciate management BSG improving #HTN on lisinopril and HCTZ as outpt BP normalized today, resume BP meds tomorrow AM #CARRI on cpap: continue cpap at hs #DVT ppx: SCDS FULL CODE PCP: Lee Ann Borrero Dispo: admit to Med/surg, primary planning to discharge tmrw I spent a total of 40 minutes coordinating, documenting, and providing care for this patient excluding time spent in the performance of separately billed services or time spent by another provider/QHP. Thank you for this consultation. We will follow the patient with you during their hospital stay. You can reach a member of the [facility] Hospitalist Team 23/12 via [employer] Admission and Anticipated Discharge Date Admission Date: August 09, 2024 Supervising Physician Co-Signing Physician Notes I have seen and discussed the case with the collaborating advanced practitioner. I agree with the above progress note. I have reviewed and confirmed the patients medical history, the findings on physical examination, and the patients diagnosis and treatment plan with Dave SCHMIDT and agree with the information documented. Mr. Bravo is a 74 year old gentleman who is post op L1-S1 decompression complicated by acute blood loss anemia s/p postoperative losses. Patient was 12.2 preoperatively, down as low as 7.8, now s/p 2 U RBRC. Hgb at 8.6 this am and stable. Resumed home BP meds this am. Agree with above I spent a total of 5 minutes coordinating, documenting, and providing care for this patient excluding time spent in the performance of separately billed services. All of the aforementioned completed outside of collaborating with the assigned advanced practitioner for a full treatment plan. I have reviewed the advanced practitioner's documentation, and I agree with, and take responsibility for the plan of care Subjective Patient was seen in 318. Resting in bedside chair, did participate with therapy today. Still having surgical site discomfort but "feeling better each day". Passing flatus, no bowel movement yet. He denies f/c/s, chest pain, sob, n/v. He is tolerating diet. Review of Systems Review of Systems: At least ten systems reviewed and negative except as noted in the HPI. Physical Exam Physical Exam: Gen: WD/WN, NAD, sitting in bedside chair, A&Ox3 HEENT: Normocephalic, atraumatic, conjunctivae moist, mucous membranes moist Lung: Clear to Auscultation bilaterally Heart: RRR, no murmurs, rubs, or gallops Abdomen: Soft, NT, ND +BS x 4 Extremities: + Spinal dressing c/d/i. IVONE drain visualized, no edema Skin: Warm, no rash Results & Data Results & Data Vital Signs (Past 12 Hours) Vital Signs Temp Pulse Resp BP Pulse Ox O2 Del Method 08/12/24 07:42 36.5 C 72 18 131/83 96 Room Air 08/11/24 21:23 36.8 C 81 18 164/84 H 98 Room Air Laboratory Results Short CBC 08/12/24 Range/Units 06:41 WBC 8.47 (4.8-10.8) K/ul Hgb 8.6 L (14.0-18.0) g/dl Hct 26.0 L (42.0-52.0) % Plt Count 134 (130-400) K/uL Diagnostic Findings Lumbar Spine X-Ray 08/09/24 09:05 FL lumbar spine 2-3V CLINICAL HISTORY: L1-S1 DECOMPRESSION T12-L1 FUSION COMPARISON STUDY: None pertinent FLUOROSCOPY TIME: 44.8 seconds FLUOROSCOPY IMAGES: 7 EXPOSURE DOSE: 40.61 mGy FINDINGS: Fluoroscopic guidance was performed for a multilevel laminectomy and fusion fusion IMPRESSION: Guidance; please refer to the operative report for findings on real- time observation. ACT 112: Negative or not required by law. Electronically signed by: Kelly Arboleda M.D. 08/09/2024 2:58 PM
[2024-08-12] MEDS: ERGOCALCIFEROL 1250 MCG (50,000 UNITS) CAP PO SCH (08:31)
--- NOTE | 2024-08-12 10:39 | Orthopedic Progress Note ---
Date of Service August 12, 2024 Assessment & Plan (1) Spondylolisthesis, lumbar region: Plan: Gilbert is postoperative day 3 status post T12-S1 decompression and fusion. He is doing well. Will continue with physical therapy today. DVT prophylaxis is in the form teds and SCDs. Work on aggressive bowel regimen today. Maintain IVONE drain. Anticipate discharge home tomorrow Admission and Anticipated Discharge Date Admission Date: August 09, 2024 Subjective Gilbert is postoperative day 3 status post T12-S1 decompression and instrumented f usion. He is doing well. Leg symptoms improved. Back pain is controlled. He is passing flatus but no bowel movement yet. IVONE drain output last shift was 60 cc. Yesterday in physical therapy [place] 325 feet. No other complaints Review of Systems Review of Systems: All systems reviewed & are unremarkable except as noted in HPI & below Physical Exam Physical Exam: He sitting in a chair in no acute distress Alert and oriented x 3 Dressing is clean dry and intact with functioning IVONE drain Calf soft and nontender bilaterally Strength intact bilateral lower extremities Results & Data Vital Signs (Past 12 Hours) Vital Signs Temp Pulse Resp BP Pulse Ox O2 Del Method 08/12/24 07:42 36.5 C 72 18 131/83 96 Room Air Queries Orthopedic Spine Acute Posthemorrhagic Anemia: Yes Obesity: Yes
[2024-08-12] MEDS: bisacodyL 10 MG SUPP PR PRN (17:25)
[2024-08-13 07:59] LABS: Hematocrit (blood only) 26.6 % (42.0-52.0); Hemoglobin 8.9 g/dl (14.0-18.0); Mean Corpuscular Hemoglobin 30.3 pg (25.0-34.0); Mean Corpuscular Hgb Conc 33.5 g/dL (32.0-36.0); Mean Corpuscular Volume 90.5 fL (80.0-100.0); Mean Platelet Volume 9.9 fL (9.4-12.4); Platelet Count 169 K/uL (130-400); RDW Coefficient of Variation 13.7 % (11.5-14.5); RDW Standard Deviation 45.1 fL (36.4-46.3); Red Blood Count 2.94 M/uL (4.70-6.10); White Blood Count 8.43 K/ul (4.8-10.8)
[2024-08-13 08:15] LABS: BUN Creatinine Ratio 19.5 (10-20); Calcium 8.5 mg/dl (8.6-10.3); Creatinine Clr Calc Pharmacy 105.8 ml/min
[2024-08-13 08:35] VITALS: PULSE 75; RESP 16; TEMP 97.5; O2SAT 96
--- NOTE | 2024-08-13 08:58 | Hospitalist Progress Note ---
Date of Service August 13, 2024 Assessment & Plan (1) Spondylolisthesis, lumbar region: (2) Acute blood loss as cause of postoperative anemia: (3) Postoperative hypotension: (4) Diabetes mellitus, type 2: Plan This is a 74 yr old M who has a significant PMH of HTN, HLD, T2DM, CARRI on CPAP, GERD who presents for elective lumbar procedure by Dr. Rizvi. #S/P L1-S1 decompression and T12-L1 fusion POD #[address] Rizvi #Acute blood loss anemia as cause of post operative anemia with EBL 2,150ml pt admitted to med/surg pain/wound management per ortho Hypotension resolved He is s/p 2 units PRBC, hgb 8.8 -> 8.6 --> 8.9 Baby aspirin resumed this AM #Hyperkalemia: resolved #Hypocalcemia: received 1g calc gluconate on 08/11. awaiting vit d level, although pt has allergy to vit d formulations with itching, ionized calc normal today, will need to follow as outpt #Vitamin D deficiency: Pt vitamin D 7.2. Discussed with him treatment options. Pt with hx of itching with vitamin D supplementation many years ago. Agreeable to trying once weekly Vit D2 50,000 units x 12 weeks and repeat vit D in 12 weeks. If itching returns he is urged to d/c and talk to PCP #T2DM, controlled a1c 7.0 in July on metformin, glipizide, hold for now glycemic pharmacy on board BSG improving #HTN BP normalized today, resumed home lisinopril and hctz #CARRI on cpap: continue cpap HS #DVT ppx: SCDS FULL CODE PCP: Lee Ann Borrero Dispo: admit to Med/surg, primary planning to discharge tmrw I spent a total of 40 minutes coordinating, documenting, and providing care for this patient excluding time spent in the performance of separately billed services or time spent by another provider/QHP. Care coordinated with Dr. Neves. Thank you for this consultation. We will follow the patient with you during their hospital stay. You can reach a member of the [facility] Hospitalist Team 23/12 via [employer] Admission and Anticipated Discharge Date Admission Date: August 09, 2024 Supervising Physician Co-Signing Physician Notes I have seen and discussed the case with the collaborating advanced practitioner. I agree with the above progress note. I have reviewed and confirmed the patients medical history, the findings on physical examination, and the patients diagnosis and treatment plan with Dave SCHMIDT and agree with the information documented. Mr. Bravo is a 74 year old gentleman who is post op L1-S1 decompression complicated by acute blood loss anemia s/p postoperative losses. Patient was 12.2 preoperatively, down as low as 7.8, now s/p 2 U RBRC. Hgb at 8.69 on day of discharge. .stable on home bp regimen I spent a total of 5 minutes coordinating, documenting, and providing care for this patient excluding time spent in the performance of separately billed services. All of the aforementioned completed outside of collaborating with the assigned advanced practitioner for a full treatment plan. I have reviewed the advanced practitioner's documentation, and I agree with, and take responsibility for the plan of care Subjective Patient was seen in 318. Resting in bedside chair, did participate with therapy today. Still having surgical site discomfort but "feeling better each day". Passing flatus, no bowel movement yet. He denies f/c/s, chest pain, sob, n/v. He is tolerating diet. Review of Systems Review of Systems: At least ten systems reviewed and negative except as noted in the HPI. Physical Exam Physical Exam: Gen: WD/WN, NAD, resting in bed comfortably, A&Ox3 HEENT: Normocephalic, atraumatic, conjunctivae moist, mucous membranes moist Lung: Clear to Auscultation bilaterally Heart: RRR, no murmurs, rubs, or gallops Abdomen: Soft, NT, ND +BS x 4 Extremities: + Spinal dressing c/d/i, no edema Skin: Warm, no rash Results & Data Results & Data Vital Signs (Past 12 Hours) Vital Signs Temp Pulse Resp BP Pulse Ox O2 Del Method 08/13/24 08:28 36.4 C L 75 16 122/74 96 Room Air Laboratory Results Short CBC 08/13/24 Range/Units 07:43 WBC 8.43 (4.8-10.8) K/ul Hgb 8.9 L (14.0-18.0) g/dl Hct 26.6 L (42.0-52.0) % Plt Count 169 (130-400) K/uL BMP 08/13/24 07:43 Sodium 138 Potassium 4.0 Chloride 104 Carbon Dioxide 30 BUN 15 Creatinine 0.77 Glucose 101 H Calcium 8.5 L Diagnostic Findings Lumbar Spine X-Ray 08/09/24 09:05 FL lumbar spine 2-3V CLINICAL HISTORY: L1-S1 DECOMPRESSION T12-L1 FUSION COMPARISON STUDY: None pertinent FLUOROSCOPY TIME: 44.8 seconds FLUOROSCOPY IMAGES: 7 EXPOSURE DOSE: 40.61 mGy FINDINGS: Fluoroscopic guidance was performed for a multilevel laminectomy and fusion fusion IMPRESSION: Guidance; please refer to the operative report for findings on real- time observation. ACT 112: Negative or not required by law. Electronically signed by: Kelly Arboleda M.D. 08/09/2024 2:58 PM
--- NOTE | 2024-08-13 10:05 | Discharge Summary ---
Date of Service August 13, 2024 Admission HPI Per Admitting Provider This is a 74-year-old male who presents with back and bilaterally pain and failing course of nonoperative care is here for surgical invention. Principal Diagnosis Multilevel cervical spondylosis with radiculopathy Discharge Data Allergies Allergy/AdvReac Type Severity Reaction Status Date / Time adhesive tape Allergy Intermediate Sores, Verified 08/09/24 05:49 "Ripped my skin right off" cholecalciferol (vitamin D3) Allergy Intermediate Itching Verified 08/09/24 05:49 [From Vitamin D3] ergocalciferol (vitamin D2) Allergy Intermediate Itching Verified 08/09/24 05:49 [From Vitamin D2] testosterone Allergy Intermediate Itching Verified 08/09/24 05:49 Penicillins Allergy Unknown Unknown Verified 08/09/24 05:49 Consultations 08/09/24 14:30 Consult Hospitalist Routine Procedures Performed Operation Date: 08/09/24 09:05 Actual Procedures p L1-S1 Decompression, T12-S1 Fusion, with Interbody Fusion, Applicaton of Bone Morphogenetic Protein, MagnetOS bone graft and Versawrap, Spinal Cord Monitoring(Not Applicable) - Christian Rizvi DO Ordered Studies 08/09/24 09:05 FL lumbar spine 2-3V Routine Hospital Course (1) Spondylolisthesis, lumbar region: Patient went multilevel lumbar decompression fusion tolerates well was taken to the orthopedic for postoperative. Postop he progressed steadily throughout the week. IVONE drain decreasing. Improved strength. Pain controlled. Subsequently discharged home. Discharge orders instructions from the chart for further review. Total Time Total Time Spent Total Time Spent (In Minutes): 20 minutes Discharge Plan Discharge Items Patient Disposition: Home - Self-Care Reason For Visit: Lumbosacral Spondylosis with Radiculopathy, Spondy Discharge Diagnosis: Lumbar spondylosis with radiculopathy Activity: As commented below Non-emergency contact: Primary Care Provider Call non-emergency contact if: you have any medication questions Follow-up/Referrals: Lee Ann Borrero PA-C [Primary Care Provider] - 08/17/24 2:00 pm Diet: Regular Addtl Attending Provider Instructions: ACTIVITY RECOMMENDATIONS: SELF CARE INSTRUCTIONS AFTER THORACIC/LUMBAR FUSIONS 1. You may walk to your tolerance. It is good exercise for your legs and back. Expect some back and intermittent leg aches and pains. 2. You may perform "counter-top" level activities (make a sandwich, jacqueline with a project, etc.). 3. No bending or lifting of more than 10 pounds or back twisting of any nature (roll like a log when turning in bed). 4. You may ride in a car for 20-30 minutes at a time. No driving until after your first visit with your doctor. 5. Frequent changes of position and restricting sitting to 30 minutes at a time will help limit the amount of back spasms and stiffness you may experience. 6. You may discontinue the use of ambulatory aids (cane, crutches, etc.) once your strength and confidence allow. 7. You may audio visual collections coordinator the shower and let water strike your incision when you arrive home at least once daily. Do not take a tub bath, sit in a hot tub or go into a swimming pool until after your first recheck in the office. 8. You may resume previous diet. SPECIAL CARE INSTRUCTIONS: VERY IMPORTANT TO READ AND REVIEW A. Your surgical incision has been closed with a cosmetic suture under the skin that will dissolve in about 6 weeks. In 14 days, you can use a pair of clean scissors and cut the suture that is left outside of the skin at the ends of your incision. 1. The small skin tapes can be removed 7 days after surgery if they have not fallen off by that point. 2. You may keep the wound open to air as much as possible to promote healing after post-op day number 5 unless told otherwise by your doctor. 3. If you think the wound looks like it is becoming infected (redness or worsening drainage) and/or you are experiencing fever, chill or worsening back pain and muscle spasms, contact the office so that we may evaluate you as soon as possible. B. Complications are uncommon, but please contact us if you have any signs or symptoms of: 1. wound infection (fever higher than 102.5 degrees F, redness, separation of wound, drainage, or increasing pain from the incision) 2. blood clots in legs (pain, swelling, redness and warmth in legs) 3. urinary tract infection (fever higher than 102.5 degrees F, burning upon urination or increased frequency of urination) 4. nerve problems (inability to walk on your toes or heels, numbness, loss of bowel or bladder control) 5. any other symptoms that concern you C. Please call the office at if you have any concerns or questions about your operation or recovery. D. No smoking! Smoking drastically decreases the chance of a solid fusion. E. Do not take any anti-inflammatory medications (Indocin, Advil, Motrin, Aspirin, Naprosyn, etc.) as these may inhibit the chance of a solid fusion. Tylenol is okay to take for pain. MANAGING PAIN AFTER SPINAL SURGERY 1. Narcotic medication is intended for short-term use and will be provided for surgical pain. Surgical pain usually lasts for a period of 4-6 weeks. Narcotic medication includes Percocet, Vicodin, Darvocet, Tylenol #3 or Lortab. 2. Longer-term pain is more appropriately treated with non-narcotic medication such as Tylenol ES. 3. Muscle spasm is not appropriately treated with narcotics. Muscle relaxers such as Soma, Flexeril or Skelaxin can be used along with Tylenol ES. 4. Remember that we all live with some "aches and pains". This is not unusual or uncommon after an injury or as we get older. a. Back pain is expected and may include muscle spasms for 4 to 6 weeks after surgery. The pain should gradually improve. If the pain worsens for no apparent reason, please contact the office. b. Intermittent leg pain may also be experienced and should not be concerned about unless it worsens for no apparent reason. If so, please contact the office. 5. We will provide appropriate medication within the normal guidelines of their prescribed use. We will also be very cautious and aware of potential abuse and extended duration of patients' medication needs. a. Pain medications are for your comfort and to assist with sleep and rest so that the tissue can heal. They are not provided in order to return to normal activity and should not be used through the day. To do so or worsening pain at night can result from ongoing tissue damage and development of tolerance to the prescribed medicine. 6. Please allow 2-3 days to process refills. Prescriptions will not be mailed but must be picked up at the office. FOLLOW UP VISIT: Keep your scheduled follow-up appointment. Any questions, please call the office at . Pending Studies at Discharge: No Stand-Alone Forms: [email or web address], Smoking Cessation Medications and DC Order Prescriptions: New oxycodone 5 mg tablet 5 mg PO Q6H PRN (Reason: pain) Qty: 30 0RF Continued metformin 500 mg Tablet 500 mg PO BID atorvastatin 20 mg Tablet 20 mg PO QAM lisinopril 20 mg Tablet 20 mg PO QAM aspirin 81 mg Tablet,Delayed Release (Dr/Ec) 81 mg PO QAM omeprazole 20 mg Capsule,Delayed Release(Dr/Ec) 20 mg PO QAM hydrochlorothiazide 25 mg Tablet 25 mg PO QAM sertraline 50 mg Tablet 50 mg PO QAM glipizide 5 mg Tablet 2.5 mg PO BID duloxetine 30 mg Capsule,Delayed Release(Dr/Ec) 30 mg PO QAM Discharge Orders: Discharge Order (Routine); Ordered 08/13/24 Ordered By: Christian Rizvi Admission Data Admit Date/Time: 08/09/24 13:08 Attending Provider: Christian Rizvi Admit Provider: Christian Rizvi Primary Care Provider: Lee Ann Borrero Other Providers: Anyi Mixon; Jaciel Manzo
[2024-08-13] MEDS: hydroCHLOROthiazide 25 MG TAB PO SCH (10:37)
[2024-08-13] MEDS: metFORMIN HCL 500 MG TAB PO SCH (10:37)
[2024-08-13] MEDS: lisinopril 20 MG TAB PO SCH (10:37)
[2024-08-13] MEDS: glipiZIDE 5 MG TAB PO SCH (10:37)
[2024-08-13] MEDS: ASPIRIN 81 MG ECTAB PO SCH (10:38)
[2024-08-13 12:56] VITALS: BP 94/61
== END 2024-08-13 13:29 | disposition home or self-care (01) | DRG 427 ==
LOC: ASU 05:40 → PACUINP 13:08 → 3E 14:38

== ENCOUNTER 2024-08-16 21:07 | Inpatient (IN) ==
--- NOTE | 2024-08-16 21:32 | Emergency Department Note ---
Impression & Plan Weakness, Fall, Debilitated, Influenza A, History of lumbar surgery, Anemia ED Provider Note NAME: ANGELA GRADY AGE: 74 SEX: M : 1950 ARRIVES VIA: Ambulance INFORMANT: [Patient] ED PROVIDER(S): [Tio Ochoa MD] CHIEF COMPLAINT: Fall HISTORY OF PRESENT ILLNESS: The patient is a 74-year-old male who had a lumbar back surgery on the , 7 days ago. He was discharged 3 days ago. He states that since discharge, he has fallen twice, the last episode was today. He fell to his knees. He states he is weak diffusely and his legs just give out. He did not suffer any trauma, he has not been injured, he did not strike his head, he is not on blood thinning agents. Patient denies any chest pain or dyspnea. No fever. No cough or cold or congestion. He is making urine but he thinks his urine is more concentrated. He feels he is not drinking enough fluids. The patient states that he believes he needs rehab. He is not safe at home. PMHx/PSHx/Social Hx: See Below PHYSICAL EXAM: GENERAL: Patient is in no acute distress. HEENT: No acute trauma, normocephalic atraumatic, mucous membranes moist, no nasal congestion. NECK: No stridor, no adenopathy, no meningismus, trachea is midline. LUNGS: Clear to auscultation bilaterally, no wheeze, no rhonchi, breath sounds equal. HEART: Without murmurs gallops or rubs, regular rate and rhythm. ABDOMEN: Soft, nontender, no peritonitis. EXTREMITIES: No cyanosis, full range of motion of all the joints without pain or difficulty. Mild bilateral pedal edema. NEUROLOGIC: Oriented x 3, no acute motor or sensory deficits, no focal weakness. SKIN: No jaundice, no diaphoresis. Slightly pale DIFFERENTIAL DIAGNOSIS: Dehydration, electrolyte imbalance, anemia, debilitation, UTI, among others. EMERGENCY DEPARTMENT PROCEDURES: MEDICAL DECISION MAKING: There is no leukocytosis, the white count is actually a bit low which would be suggestive of a potential viral process. The patient was anemic however, his hemoglobin has improved from a recent testing. There was a normal platelet count. No electrolyte abnormality in need of emergent correction. No renal failure. No concerning liver enzyme elevation. Patient appeared to be in a euthyroid state. ECG showed a sinus rhythm, no acute ischemia. Cardiac enzyme testing x 1 was not consistent with acute cardiac injury. Respiratory bio fire returned positive for influenza A. Chest x-ray did not show any focal pneumonia, there was no CHF. On exam, the patient seemed comfortable. He complained of diffuse weakness which had led to his fall earlier. Patient was given IV morphine for back pain, he received IV Zofran. He was given a 500 cc saline bolus. The patient presents with weakness and debilitation. He was asking for inpatient rehab. I spoke with case management, the patient has to be admitted to the hospital. He may be a candidate for rehab based on his assessment tomorrow. I did speak with the patient, the on-call hospitalist was consulted. In short, I suspect the patient's weakness is secondary to some debilitation, some dehydration as well as the findings of influenza A. Prior/Outside records/notes reviewed: Discharge summary note from 08/13/2024 describing his hospitalization, his care and the plan outpatient. ECG per my interpretation: Indication was weakness and fall. The ECG shows a normal sinus rhythm with a rate of 96. There is some nonspecific ST change. There is no acute ST elevation, no PVCs. The QTc is 442. Continuous Cardiac Monitoring per my interpretation: An order was placed for continuous cardiac monitoring. The monitor shows a rate of 91 with normal sinus rhythm. Imaging/x-ray results per my interpretation: Chest x-ray does not show mediastinal widening, pneumonia or pneumothorax. No significant cardiomegaly. Chronic Medical/Social conditions affecting care: Advanced age, recent hospitalization for lumbar surgery. Care/Management discussed with: Case management and the on-call hospitalist. Level of care consideration(s): After review of the information above and other included data: --I believe the patient requires escalation of care to admission DISPOSITION: Admission Past Med/Surg History Problem List (Updated 08/17/24 @ 00:16 by Tio Ochoa MD) Anemia (Acute) History of lumbar surgery (Acute) Influenza A (Acute) Debilitated (Acute) Fall (Acute) Weakness (Acute) Postoperative hypotension Acute blood loss as cause of postoperative anemia Spondylolisthesis, lumbar region Medical History Sleep apnea CPAP-compliant History of prostate cancer (~2007) surgery only - no xrt/chemo Acid reflux controlled, stable per pt Hx of Lyme disease (~2019) x2 completed antibiotic tx-denies residual issues Hypertension controlled, stable per pt Lung disease pt unsure of type Diabetes mellitus, type 2 NIDDM Adverse effect of anesthesia awareness under anesthesia Surgical History History of surgery more than 20 yrs ago- "gland near prostate" pt cannot recall additional details Hx of colonoscopy History of bilateral cataract extraction History of nasal surgery deviated septum History of tonsillectomy History of hemorrhoidectomy History of hernia repair History of total left knee replacement History of prostatectomy Social History Smoking Status: Former smoker Tobacco Type: Cigarettes Second Hand Exposure: No; Do You Dip or Chew Tobacco: No; Hx Alcohol Use: Yes Alcohol type: beer Hx Substance Use: No Preferred Language: [place]ian Communication Ability: Effective Clinical Case Manager Required: No Beliefs That Will Affect Care: None Current Living Situation: Spouse Feels Safe at Home: Yes Assistive Devices: Cane, CPAP and Walker Allergies Allergies Allergy/AdvReac Type Severity Reaction Status Date / Time adhesive tape Allergy Intermediate Sores, Verified 08/16/24 23:26 "Ripped my skin right off" cholecalciferol (vitamin D3) Allergy Intermediate Itching Verified 08/16/24 23:26 [From Vitamin D3] ergocalciferol (vitamin D2) Allergy Intermediate Itching Verified 08/16/24 23:26 [From Vitamin D2] testosterone Allergy Intermediate Itching Verified 08/16/24 23:26 Penicillins Allergy Unknown HAPPENED Verified 08/16/24 23:26 A CHILD Home Meds Home Medications Medication Instructions Recorded Confirmed aspirin 81 mg tablet,delayed 81 mg PO QAM 07/02/24 08/16/24 release atorvastatin 20 mg tablet 20 mg PO QAM 07/02/24 08/16/24 duloxetine 30 mg capsule,delayed 30 mg PO QAM 07/02/24 08/16/24 release glipizide 5 mg tablet 2.5 mg PO BID 07/02/24 08/16/24 hydrochlorothiazide 25 mg tablet 25 mg PO QAM 07/02/24 08/16/24 lisinopril 20 mg tablet 20 mg PO QAM 07/02/24 08/16/24 metformin 500 mg tablet 500 mg PO BID 07/02/24 08/16/24 omeprazole 20 mg capsule,delayed 20 mg PO QAM 07/02/24 08/16/24 release sertraline 50 mg tablet 50 mg PO QAM 07/02/24 08/16/24 Previous Rx's Medication Instructions Recorded oxycodone 5 mg tablet 5 mg PO Q6H PRN pain #30 tabs 08/10/24 cholecalciferol (vitamin D3) 1,250 50,000 unit PO WK #11 caps 08/13/24 mcg (50,000 unit) capsule Results & Data (ED) Vital Signs Vital Signs - 24 hr 08/16/24 21:15 08/16/24 21:16 08/16/24 21:27 Temperature 37.4 C Temperature Source Oral Pulse Rate 95 H 94 H Pulse Rate [Right Finger] Pulse Rate from SpO2 Sensor Respiratory Rate 20 13 Blood Pressure 124/75 124/75 Blood Pressure [Right Arm] Blood Pressure Mean 91 91 Blood Pressure Mean [Right Arm] Pulse Oximetry 94 94 Oxygen Delivery Method Room Air Room Air Sepsis Recent Fever Within 48 Hours No Sepsis New/Unexplained Change in Mental Status N/A Sepsis Action Taken by Nursing No Action Required 08/16/24 21:28 08/16/24 22:00 08/16/24 22:36 Temperature Temperature Source Pulse Rate 91 H 93 H 83 Pulse Rate [Right Finger] Pulse Rate from SpO2 Sensor 93 H 83 Respiratory Rate 18 16 Blood Pressure 133/78 138/70 Blood Pressure [Right Arm] Blood Pressure Mean 104 92 Blood Pressure Mean [Right Arm] Pulse Oximetry 96 95 Oxygen Delivery Method Sepsis Recent Fever Within 48 Hours Sepsis New/Unexplained Change in Mental Status Sepsis Action Taken by Nursing 08/16/24 23:19 Temperature Temperature Source Pulse Rate Pulse Rate [Right Finger] 84 Pulse Rate from SpO2 Sensor Respiratory Rate 19 Blood Pressure Blood Pressure [Right Arm] 107/97 Blood Pressure Mean Blood Pressure Mean [Right Arm] 100 Pulse Oximetry 93 Oxygen Delivery Method Room Air Sepsis Recent Fever Within 48 Hours Sepsis New/Unexplained Change in Mental Status Sepsis Action Taken by Custodial Medications Current Medication List: was personally reviewed by me Laboratory Data Attestation: I reviewed the patient's lab results. 08/16/24 21:31 08/16/24 21:31 Lab Results 08/16/24 08/16/24 Range/Units 21:31 22:49 WBC 4.39 L (4.8-10.8) K/ul RBC 3.11 L (4.70-6.10) M/uL Hgb 9.3 L (14.0-18.0) g/dl Hct 28.4 L (42.0-52.0) % MCV 91.3 (80.0-100.0) fL MCH 29.9 (25.0-34.0) pg MCHC 32.7 (32.0-36.0) g/dL RDW Std Deviation 46.6 H (36.4-46.3) fL RDW Coeff of Ebony 14.0 (11.5-14.5) % Plt Count 202 (130-400) K/uL MPV 9.4 (9.4-12.4) fL Immature Gran % (Auto) 1.1 % Neut % (Auto) 60.9 % Lymph % (Auto) 20.0 % Woodruff % (Auto) 13.9 % Eos % (Auto) 3.4 % Baso % (Auto) 0.7 % Neut # (Auto) 2.67 (1.40-6.50) K/uL Lymph # (Auto) 0.88 L (1.20-3.40) K/uL Woodruff # (Auto) 0.61 H (0.11-0.59) K/uL Eos # (Auto) 0.15 (0.00-0.50) K/uL Baso # (Auto) 0.03 (0.00-0.20) K/uL Immature Gran # (Auto) 0.05 (0.01-0.20) K/uL Sodium 134 L (136-145) mmol/L Potassium 4.2 (3.5-5.1) mmol/L Chloride 101 (98-107) mmol/L Carbon Dioxide 27 (21-32) mmol/L Anion Gap 6 (3-11) BUN 19 (6-23) mg/dl Creatinine 0.84 (0.6-1.4) mg/dl Est Cr Clr Drug Dosing 95.6 ml/min eGFR 91.51 BUN/Creatinine Ratio 22.6 H (10-20) Glucose 206 H (70-99(Fasting)) mg/dl Calcium 8.6 (8.6-10.3) mg/dl Magnesium 1.7 (1.7-2.4) mg/dl Total Bilirubin 0.4 (0.2-1.0) mg/dl AST 14 (13-39) U/L ALT 14 (7-52) U/L Alkaline Phosphatase 41 (34-104) U/L Troponin I High Sens 2.6 (0-20) pg/ml Total Protein 6.2 (6.0-8.3) gm/dl Albumin 3.6 (3.4-5.0) gm/dl Globulin 2.6 (2.5-4.0) gm/dl Albumin/Globulin Ratio 1.4 (0.9-2) TSH 0.767 (0.300-4.500) uIu/ml Nasal Influ A H1 2008 PCR DETECTED A (NotDetected) Adenovirus (PCR) Not Detected (NotDetected) B. pertussis DNA (PCR) Not Detected (NotDetected) B.parapertussis DNA PCR Not Detected (NotDetected) C. pneumoniae DNA (PCR) Not Detected (NotDetected) Coronavirus OC43 (PCR) Not Detected (NotDetected) Coronavirus HKU1 (PCR) Not Detected (NotDetected) Coronavirus 229E (PCR) Not Detected (NotDetected) SARS-CoV-2 (PCR) Not Detected (NotDetected) Coronavirus NL63 (PCR) Not Detected (NotDetected) Human Metapneumovir PCR Not Detected (NotDetected) Influenza Type B (PCR) Not Detected (NotDetected) M. pneumoniae (PCR) Not Detected (NotDetected) Parainfluenza 1 (PCR) Not Detected (NotDetected) Parainfluenza 2 (PCR) Not Detected (NotDetected) Parainfluenza 3 (PCR) Not Detected (NotDetected) Parainfluenza 4 (PCR) Not Detected (NotDetected) RSV (PCR) Not Detected (NotDetected) Entero/Rhino (PCR) Not Detected (NotDetected) Administered Medications Discontinued Medications Sodium Chloride (Nss) 500 mls @ 999 mls/hr IV .Q31M ONE Stop: 08/16/24 21:46 Last Infusion: 08/16/24 22:39 Dose: Infused Documented By: Admin: 08/16/24 21:39 Dose: 999 mls/hr Documented By: JEREMY Morphine Sulfate (Morphine Sulfate 4 Mg/Ml 1 Ml Carp\\Vial) 4 mg IV NOW STA Stop: 08/16/24 22:21 Last Admin: 08/16/24 22:40 Dose: 4 mg Documented By: JEREMY Ondansetron HCl (Ondansetron Inj 2 Mg/Ml 2 Ml Vial) 4 mg IV NOW STA Stop: 08/16/24 22:21 Last Admin: 08/16/24 22:40 Dose: 4 mg Documented By: JEREMY Imaging Data Radiologist's Impression: Chest X-Ray 08/16/24 21:16 Exam(s): XR CXR 1 VIEW EXAM: XR Chest, 1 View CLINICAL HISTORY: Reason for exam: weakness. TECHNIQUE: Frontal view of the chest. COMPARISON: July 23, 2012. FINDINGS: Lungs: There is a soft tissue bulge and edge along the medial aspect of the right lung base which is not clearly present on the prior study. A mass is difficult to exclude. Pleural space: Unremarkable. No pneumothorax or pleural fluid. Heart: Unremarkable. No cardiomegaly. Mediastinum: Unremarkable. Normal mediastinal contour. Bones/joints: No acute findings. IMPRESSION: There is a soft tissue bulge and edge along the medial aspect of the right lung base which is not clearly present on the prior study. A mass is difficult to exclude. No other abnormalities. Electronically signed by: Toni Herrera MD 08/16/24 23:26 PM Discharge Plan Visit Data Chief Complaint: Fall Stated Complaint: FALLS, WEAKNESS, BACK SURGERY 08/09 ED Provider: Tio Ochoa Discharge Problem: Weakness, Fall, Debilitated, Influenza A, History of lumbar surgery, Anemia Patient Disposition: Admitted As Inpatient Condition: Fair Forms Stand Alone Forms: My [facility] Prescriptions Prescriptions: No Action metformin 500 mg Tablet 500 mg PO BID Rx Instructions: PT UNSURE IF TOOK PM DOSE atorvastatin 20 mg Tablet 20 mg PO QAM lisinopril 20 mg Tablet 20 mg PO QAM aspirin 81 mg Tablet,Delayed Release (Dr/Ec) 81 mg PO QAM omeprazole 20 mg Capsule,Delayed Release(Dr/Ec) 20 mg PO QAM hydrochlorothiazide 25 mg Tablet 25 mg PO QAM sertraline 50 mg Tablet 50 mg PO QAM glipizide 5 mg Tablet 2.5 mg PO BID Rx Instructions: PT NOT SURE IF TOOK PM DOSE. duloxetine 30 mg Capsule,Delayed Release(Dr/Ec) 30 mg PO QAM oxycodone 5 mg tablet 5 mg PO Q6H PRN (Reason: pain) Qty: 30 0RF cholecalciferol (vitamin D3) 1,250 mcg (50,000 unit) capsule 50,000 unit PO WK Qty: 11 0RF Rx Instructions: Take every for 12 weeks to complete course Referrals Referrals: Lee Ann Borrero PA-C [Primary Care Provider] - Discharge Problem: Fall Qualifiers: Encounter type: initial encounter Qualified Code(s): W19.XXXA - Unspecified fall, initial encounter Anemia Qualifiers: Anemia type: unspecified type Qualified Code(s): D64.9 - Anemia, unspecified
[2024-08-16] MEDS: SODIUM CHLORIDE 0.9% 500 ML IV ONE (21:39)
[2024-08-16 22:01] LABS: Basophils # (auto) 0.03 K/uL (0.00-0.20); Basophils % (auto) 0.7 %; Eosinophils # (auto) 0.15 K/uL (0.00-0.50); Eosinophils % (auto) 3.4 %; Hematocrit (blood only) 28.4 % (42.0-52.0); Hemoglobin 9.3 g/dl (14.0-18.0); Immature Granulocytes # (auto) 0.05 K/uL (0.01-0.20); Immature Granulocytes % (auto) 1.1 %; Lymphocytes # (auto) 0.88 K/uL (1.20-3.40); Mean Corpuscular Hemoglobin 29.9 pg (25.0-34.0); Mean Corpuscular Hgb Conc 32.7 g/dL (32.0-36.0); Mean Corpuscular Volume 91.3 fL (80.0-100.0); Mean Platelet Volume 9.4 fL (9.4-12.4); Monocytes # (auto) 0.61 K/uL (0.11-0.59); Monocytes % (auto) 13.9 %; Neutrophils # (auto) 2.67 K/uL (1.40-6.50); Neutrophils % (auto) 60.9 %; Platelet Count 202 K/uL (130-400); RDW Standard Deviation 46.6 fL (36.4-46.3); Red Blood Count 3.11 M/uL (4.70-6.10); White Blood Count 4.39 K/ul (4.8-10.8)
[2024-08-16 22:07] LABS: Albumin Globulin Ratio 1.4 (0.9-2); Albumin Level 3.6 gm/dl (3.4-5.0); BUN Creatinine Ratio 22.6 (10-20); Bilirubin,Total 0.4 mg/dl (0.2-1.0); Calcium 8.6 mg/dl (8.6-10.3); Creatinine Clr Calc Pharmacy 95.6 ml/min; Globulin 2.6 gm/dl (2.5-4.0); Magnesium 1.7 mg/dl (1.7-2.4); Potassium 4.2 mmol/L (3.5-5.1); Total Protein 6.2 gm/dl (6.0-8.3)
[2024-08-16 22:15] LABS: Troponin I High Sensitivity 2.6 pg/ml (0-20)
[2024-08-16 22:24] LABS: Thyroid Stimulating Hormone 0.767 uIu/ml (0.300-4.500)
[2024-08-16] MEDS: ONDANSETRON INJ 2 MG/ML 2 ML VIAL IV STA (22:40)
[2024-08-16] MEDS: MoRPHine SULFATE 4 MG/ML 1 ML CARP\\VIAL IV STA (22:40)
--- NOTE | 2024-08-16 23:27 | XRay Report ---
Exam(s): XR CXR 1 VIEW EXAM: XR Chest, 1 View CLINICAL HISTORY: Reason for exam: weakness. TECHNIQUE: Frontal view of the chest. COMPARISON: July 23, 2012. FINDINGS: Lungs: There is a soft tissue bulge and edge along the medial aspect of the right lung base which is not clearly present on the prior study. A mass is difficult to exclude. Pleural space: Unremarkable. No pneumothorax or pleural fluid. Heart: Unremarkable. No cardiomegaly. Mediastinum: Unremarkable. Normal mediastinal contour. Bones/joints: No acute findings. IMPRESSION: There is a soft tissue bulge and edge along the medial aspect of the right lung base which is not clearly present on the prior study. A mass is difficult to exclude. No other abnormalities. Electronically signed by: Toni Herrera MD 08/16/24 23:26 PM
[2024-08-16 23:49] LABS: Adenovirus PCR Not Detected (NotDetected); Bordetella parapertussis PCR Not Detected (NotDetected); Bordetella pertussis PCR Not Detected (NotDetected); Chlamydia pneumoniae PCR Not Detected (NotDetected); Coronavirus 229E PCR Not Detected (NotDetected); Coronavirus CoV-2 (COVID19)PCR Not Detected (NotDetected); Coronavirus HKU1 PCR Not Detected (NotDetected); Coronavirus NL63 PCR Not Detected (NotDetected); Coronavirus OC43PCR Not Detected (NotDetected); Human Metapneumovirus PCR Not Detected (NotDetected); Influenza A (H1 2009) PCR DETECTED (NotDetected); Influenza B PCR Not Detected (NotDetected); Mycoplasma pneumoniae PCR Not Detected (NotDetected); Parainfluenza Virus 1 PCR Not Detected (NotDetected); Parainfluenza Virus 2 PCR Not Detected (NotDetected); Parainfluenza Virus 3 PCR Not Detected (NotDetected); Parainfluenza Virus 4 PCR Not Detected (NotDetected); Respiratory Syncytial VirusPCR Not Detected (NotDetected); Rhinovirus/Enterovirus PCR Not Detected (NotDetected)
[2024-08-17 01:46] LABS: Appearance Urine Clear (Clear); Bilirubin Urine Negative (Negative); Blood Urine Negative (Negative); Color Urine Yellow; Glucose Urine UA Negative (Negative); Ketones Urine Negative (Negative); Leukocyte Esterase Urine Negative (Negative); Nitrite Urine Negative (Negative); Protein Urine Negative (Negative); Specific Gravity Urine 1.018 (1.000-1.030); Urobilinogen Urine Negative (Negative)
[2024-08-17] MEDS: oxyCODONE HCL IR 5 MG TAB (IMMEDIATE RELEASE) PO STA (04:05)
[2024-08-17] MEDS: MELATONIN 3 MG TAB PO STA (04:06)
--- NOTE | 2024-08-17 04:17 | History & Physical Report ---
Date of Service August 17, 2024 Assessment & Plan (1) Weakness: Plan: 74-year-old male with past medical history significant for hyperlipidemia, chronic rhinitis, obesity, sarcoidosis, depression, history of hyperglycemia, history of tobacco use, sleep apnea presents with falls. Patient had back surgery recently and was discharged on last Friday. He lives with his At home he was having a lot of back pain and feeling weakness in the legs and falling. Today when he fell he could not get up. And patient came to the ER. Denies any fevers. Earlier had runny nose that got resolved. Has some cough. Denies any fevers. Appetite is down. Denies chest pain or shortness of breath. No abdominal pain. Normal bowel and bladder movements. Hemodynamics are okay. In the ER he was found to have flu positive. Weakness Falls History of back surgery and having pain Pain control PT OT Ortho spine consult while in the hospital May need placement Flu Could be contributing to his weakness and falls Otherwise mostly asymptomatic Empirically started on Tamiflu Droplet precautions Gentle fluids Obstructive sleep apnea CPAP nightly Anemia Hemoglobin 9.3 Required 2 units of PRBC after back surgery Hemoglobin was 8.9 on discharge 08/13/2024 Diabetes Holding home p.o. medications Sliding scale Will monitor History of blood pressure On lisinopril and hydrochlorothiazide Will monitor GERD On omeprazole Depression Duloxetine and Zoloft Will follow chest x-ray PA lateral view for findings on portable chest x-ray Hyperlipidemia On statin DVT prophylaxis SCDs Disposition Medical floor Full code History of Present Illness Chief Complaint: Weakness, fall and flu Primary Care Provider: Lee Ann Borrero 74-year-old male with past medical history significant for hyperlipidemia, chronic rhinitis, obesity, sarcoidosis, depression, history of hyperglycemia, history of tobacco use, sleep apnea presents with falls. Patient had back surgery recently and was discharged on last Friday. He lives with his At home he was having a lot of back pain and feeling weakness in the legs and falling. Today when he fell he could not get up. And patient came to the ER. Denies any fevers. Earlier had runny nose that got resolved. Has some cough. Denies any fevers. Appetite is down. Denies chest pain or shortness of breath. No abdominal pain. Normal bowel and bladder movements. Hemodynamics are okay. In the ER he was found to have flu positive. Past medical history. As mentioned above Past surgical history. Anal fistula surgery. Colonoscopy. Nasal endoscopy. Tonsillectomy. Bilateral cataracts. Umbilical hernia repair. Social history. .Quit smoking 1976. Smoked 1 pack a day for 15 years. Alcohol yes. No drug use. Family history. Son has allergies. Allergies Allergy/AdvReac Type Severity Reaction Status Date / Time adhesive tape Allergy Intermediate Sores, Verified 08/16/24 23:26 "Ripped my skin right off" cholecalciferol (vitamin D3) Allergy Intermediate Itching Verified 08/16/24 23:26 [From Vitamin D3] ergocalciferol (vitamin D2) Allergy Intermediate Itching Verified 08/16/24 23:26 [From Vitamin D2] testosterone Allergy Intermediate Itching Verified 08/16/24 23:26 Penicillins Allergy Unknown HAPPENED Verified 08/16/24 23:26 A CHILD Home Medications Medication Instructions Recorded Confirmed Type aspirin 81 mg tablet,delayed 81 mg PO QAM 07/02/24 08/16/24 History release atorvastatin 20 mg tablet 20 mg PO QAM 07/02/24 08/16/24 History duloxetine 30 mg capsule,delayed 30 mg PO QAM 07/02/24 08/16/24 History release glipizide 5 mg tablet 2.5 mg PO BID 07/02/24 08/16/24 History hydrochlorothiazide 25 mg tablet 25 mg PO QAM 07/02/24 08/16/24 History lisinopril 20 mg tablet 20 mg PO QAM 07/02/24 08/16/24 History metformin 500 mg tablet 500 mg PO BID 07/02/24 08/16/24 History omeprazole 20 mg capsule,delayed 20 mg PO QAM 07/02/24 08/16/24 History release sertraline 50 mg tablet 50 mg PO QAM 07/02/24 08/16/24 History oxycodone 5 mg tablet 5 mg PO Q6H PRN pain #30 tabs 08/10/24 08/16/24 Rx cholecalciferol (vitamin D3) 1,250 50,000 unit PO WK #11 caps 08/13/24 08/16/24 Rx mcg (50,000 unit) capsule Past Med/Surg History Problem List (Updated 08/17/24 @ 00:16 by Tio Ochoa MD) Anemia (Acute) History of lumbar surgery (Acute) Influenza A (Acute) Debilitated (Acute) Fall (Acute) Weakness (Acute) Postoperative hypotension Acute blood loss as cause of postoperative anemia Spondylolisthesis, lumbar region Medical History Sleep apnea CPAP-compliant History of prostate cancer (~2007) surgery only - no xrt/chemo Acid reflux controlled, stable per pt Hx of Lyme disease (~2019) x2 completed antibiotic tx-denies residual issues Hypertension controlled, stable per pt Lung disease pt unsure of type Diabetes mellitus, type 2 NIDDM Adverse effect of anesthesia awareness under anesthesia Surgical History History of surgery more than 20 yrs ago- "gland near prostate" pt cannot recall additional details Hx of colonoscopy History of bilateral cataract extraction History of nasal surgery deviated septum History of tonsillectomy History of hemorrhoidectomy History of hernia repair History of total left knee replacement History of prostatectomy Social History Smoking Status: Former smoker Tobacco Type: Cigarettes Second Hand Exposure: No; Do You Dip or Chew Tobacco: No; Tobacco Cessation Education Requested by Patient: No Hx Alcohol Use: Yes (no drink in 2 weeks, previously would drink 5-6 beers a day) Alcohol type: beer Hx Substance Use: No Preferred Language: Turkish Communication Ability: Effective Smt Technician Required: No Beliefs That Will Affect Care: None Current Living Situation: Spouse Feels Safe at Home: Yes Safety Concerns: Feels Safe At This Time Assistive Devices: Walker Review of Systems Review of Systems: All systems reviewed & are unremarkable except as noted in HPI & below Physical Exam Physical Exam: General- Not in distress Head- atraumatic Eyes- PERRL. ENT- oropharynx clear Neck- supple, no JVD. Lungs- clear to auscultation , no wheezing or crackles Heart- regular rhythm; no murmur, no gallop. Abdomen- normal bowel sounds, soft, nontender, no distension Extremities- no pretibial edema, no erythema seen Neuro- alert, oriented PERRL, no facial palsy; no dysarthria; moves extremities Results & Data Results & Data Vital Signs (Past 12 Hours) Vital Signs Temp Pulse Pulse Resp BP BP Pulse Ox 08/17/24 03:00 95 H 18 145/111 H 96 08/17/24 01:47 71 08/17/24 01:42 82 19 139/72 99 08/17/24 00:46 36.9 C 80 19 126/62 99 08/16/24 23:19 84 19 107/97 93 08/16/24 22:36 83 16 138/70 95 08/16/24 22:00 93 H 18 133/78 96 08/16/24 21:28 91 H 08/16/24 21:27 94 H 13 124/75 08/16/24 21:16 94 08/16/24 21:15 37.4 C 95 H 20 124/75 94 O2 Del Method O2 Flow Rate 08/17/24 03:00 Nasal Cannula 3 08/17/24 01:47 08/17/24 01:42 Nasal Cannula 3 08/17/24 00:46 Nasal Cannula 3 08/16/24 23:19 Room Air 08/16/24 22:36 08/16/24 22:00 08/16/24 21:28 08/16/24 21:27 08/16/24 21:16 Room Air 08/16/24 21:15 Room Air Diagnostic Findings Laboratory Results WBC 4.39 K/ul (4.8-10.8) L 08/16/24 21: RBC 3.11 M/uL (4.70-6.10) L 08/16/24 21: Hgb 9.3 g/dl (14.0-18.0) L 08/16/24 21: Hct 28.4 % (42.0-52.0) L 08/16/24 21: MCV 91.3 fL (80.0-100.0) 08/16/24 21: MCH 29.9 pg (25.0-34.0) 08/16/24 21: MCHC 32.7 g/dL (32.0-36.0) 08/16/24 21: RDW Std Deviation 46.6 fL (36.4-46.3) H 08/16/24 21:31 RDW Coeff of [place] 14.0 % (11.5-14.5) 08/16/24 21: Plt Count 202 K/uL (130-400) 08/16/24 21: MPV 9.4 fL (9.4-12.4) 08/16/24 21: Immature Gran % (Auto) 1.1 % 08/16/24: Neut % (Auto) 60.9 % 08/16/24: Lymph % (Auto) 20.0 % 08/16/24: [place] % (Auto) 13.9 % 08/16/24: Eos % (Auto) 3.4 % 08/16/24: Baso % (Auto) 0.7 % 08/16/24: Neut # (Auto) 2.67 K/uL (1.40-6.50) 08/16/24: Lymph # (Auto) 0.88 K/uL (1.20-3.40) L 08/16/24: [place] # (Auto) 0.61 K/uL (0.11-0.59) H 08/16/24: Eos # (Auto) 0.15 K/uL (0.00-0.50) 08/16/24: Baso # (Auto) 0.03 K/uL (0.00-0.20) 08/16/24: Immature Gran # (Auto) 0.05 K/uL (0.01-0.20) 08/16/24: Sodium 134 mmol/L (136-145) L 08/16/24: Potassium 4.2 mmol/L (3.5-5.1) 08/16/24: Chloride 101 mmol/L (98-107) 08/16/24: Carbon Dioxide 27 mmol/L (21-32) 08/16/24: Anion Gap 6 (3-11) 08/16/24: BUN 19 mg/dl (6-23) 08/16/24: Creatinine 0.84 mg/dl (0.6-1.4) 08/16/24: Est Cr Clr Drug Dosing 95.6 ml/min 08/16/24 21: eGFR 91.51 08/16/24 21: BUN/Creatinine Ratio 22.6 (10-20) H 08/16/24: Glucose 206 mg/dl (70-99(Fasting)) H 08/16/24 21: Calcium 8.6 mg/dl (8.6-10.3) 08/16/24 21: Magnesium 1.7 mg/dl (1.7-2.4) 08/16/24 21: Total Bilirubin 0.4 mg/dl (0.2-1.0) 08/16/24 21: AST 14 U/L (13-39) 08/16/24: ALT 14 U/L (7-52) 08/16/24 21: Alkaline Phosphatase 41 U/L (34-104) 08/16/24 21: Troponin I High Sens 2.6 pg/ml (0-20) 08/16/24 21: Total Protein 6.2 gm/dl (6.0-8.3) 08/16/24: Albumin 3.6 gm/dl (3.4-5.0) 08/16/24: Globulin 2.6 gm/dl (2.5-4.0) 08/16/24: Albumin/Globulin Ratio 1.4 (0.9-2) 08/16/24 21: TSH 0.767 uIu/ml (0.300-4.500) 08/16/24 21: Urine Color Yellow 08/17/24 01:04 Urine Appearance Clear (Clear) 08/17/24 01:04 Urine pH 6.0 (4.5-7.5) 08/17/24 01:04 Ur Specific [place] 1.018 (1.000-1.030) 08/17/24 01:04 Urine Protein Negative (Negative) 08/17/24 01:04 Urine Glucose (UA) Negative (Negative) 08/17/24 01:04 Urine Ketones Negative (Negative) 08/17/24 01:04 Urine Blood Negative (Negative) 08/17/24 01:04 Urine Nitrite Negative (Negative) 08/17/24 01:04 Urine Bilirubin Negative (Negative) 08/17/24 01:04 Urine Urobilinogen Negative (Negative) 08/17/24 01:04 Ur Leukocyte Esterase Negative (Negative) 08/17/24 01:04 Nasal Influ A H1 2009 PCR DETECTED (NotDetected) A 08/16/24 22:49 Adenovirus (PCR) Not Detected (NotDetected) 08/16/24 22:49 B. pertussis DNA (PCR) Not Detected (NotDetected) 08/16/24 22:49 B.parapertussis DNA PCR Not Detected (NotDetected) 08/16/24 22:49 C. pneumoniae DNA (PCR) Not Detected (NotDetected) 08/16/24 22:49 Coronavirus OC43 (PCR) Not Detected (NotDetected) 08/16/24 22:49 Coronavirus HKU1 (PCR) Not Detected (NotDetected) 08/16/24 22:49 Coronavirus 229E (PCR) Not Detected (NotDetected) 08/16/24 22:49 SARS-CoV-2 (PCR) Not Detected (NotDetected) 08/16/24 22:49 Coronavirus NL63 (PCR) Not Detected (NotDetected) 08/16/24 22:49 Human Metapneumovir PCR Not Detected (NotDetected) 08/16/24 22:49 Influenza Type B (PCR) Not Detected (NotDetected) 08/16/24 22:49 M. pneumoniae (PCR) Not Detected (NotDetected) 08/16/24 22:49 Parainfluenza 1 (PCR) Not Detected (NotDetected) 08/16/24 22:49 Parainfluenza 2 (PCR) Not Detected (NotDetected) 08/16/24 22:49 Parainfluenza 3 (PCR) Not Detected (NotDetected) 08/16/24 22:49 Parainfluenza 4 (PCR) Not Detected (NotDetected) 08/16/24 22:49 RSV (PCR) Not Detected (NotDetected) 08/16/24 22:49 Entero/Rhino (PCR) Not Detected (NotDetected) 08/16/24 22:49 Impressions Chest X-Ray 08/16/24 21:16 Exam(s): XR CXR 1 VIEW EXAM: XR Chest, 1 View CLINICAL HISTORY: Reason for exam: weakness. TECHNIQUE: Frontal view of the chest. COMPARISON: July 23, 2012. FINDINGS: Lungs: There is a soft tissue bulge and edge along the medial aspect of the right lung base which is not clearly present on the prior study. A mass is difficult to exclude. Pleural space: Unremarkable. No pneumothorax or pleural fluid. Heart: Unremarkable. No cardiomegaly. Mediastinum: Unremarkable. Normal mediastinal contour. Bones/joints: No acute findings. IMPRESSION: There is a soft tissue bulge and edge along the medial aspect of the right lung base which is not clearly present on the prior study. A mass is difficult to exclude. No other abnormalities. Electronically signed by: Toni Herrera MD 08/16/24 23:26 PM ECG Additional Comments: ECG normal sinus rhythm rate of 96. Nonspecific ST abnormalities. Code Status & VTE Plan VTE Prophylaxis Plan VTE Prophylaxis will be ordered: Yes
[2024-08-17] MEDS ORDERED: DEXTROSE 50% 50 ML SYRINGE IV PRN (05:38)
[2024-08-17] MEDS ORDERED: CARBOHYDRATES FOR HYPOGLYCEMIA PO PRN (05:38)
[2024-08-17] MEDS ORDERED: GLUCOSE 10 TAB/TUBE PO PRN (05:38)
[2024-08-17] MEDS ORDERED: GLUCOSE 40% GEL 15 GM TUBE PO PRN (05:38)
[2024-08-17] MEDS ORDERED: GLUCAGON FOR INJ 1 MG VIAL SQ PRN (05:38)
[2024-08-17] MEDS: ACETAMINOPHEN 325 MG TAB PO PRN (05:47)
[2024-08-17] MEDS: LACTATED RINGER'S 1,000 ML IV SCH (05:48)
[2024-08-17 07:23] LABS: Basophils # (auto) 0.01 K/uL (0.00-0.20); Basophils % (auto) 0.2 %; Eosinophils # (auto) 0.27 K/uL (0.00-0.50); Eosinophils % (auto) 6.5 %; Hematocrit (blood only) 27.7 % (42.0-52.0); Hemoglobin 9.1 g/dl (14.0-18.0); Immature Granulocytes # (auto) 0.06 K/uL (0.01-0.20); Immature Granulocytes % (auto) 1.4 %; Lymphocytes # (auto) 1.24 K/uL (1.20-3.40); Lymphocytes % (auto) 29.7 %; Mean Corpuscular Hemoglobin 29.9 pg (25.0-34.0); Mean Corpuscular Hgb Conc 32.9 g/dL (32.0-36.0); Mean Corpuscular Volume 91.1 fL (80.0-100.0); Mean Platelet Volume 9.3 fL (9.4-12.4); Monocytes # (auto) 0.63 K/uL (0.11-0.59); Monocytes % (auto) 15.1 %; Neutrophils # (auto) 1.97 K/uL (1.40-6.50); Neutrophils % (auto) 47.1 %; Platelet Count 187 K/uL (130-400); RDW Coefficient of Variation 13.9 % (11.5-14.5); Red Blood Count 3.04 M/uL (4.70-6.10); White Blood Count 4.18 K/ul (4.8-10.8)
[2024-08-17 07:33] LABS: BUN Creatinine Ratio 19.5 (10-20); Calcium 8.2 mg/dl (8.6-10.3); Creatinine Clr Calc Pharmacy 102.9 ml/min; Magnesium 1.8 mg/dl (1.7-2.4); Potassium 3.9 mmol/L (3.5-5.1)
--- NOTE | 2024-08-17 08:04 | Hospitalist Progress Note ---
Date of Service August 17, 2024 Assessment & Plan (1) Weakness: Plan: This is a 74-year-old male with past medical history significant for hyperlipidemia, chronic rhinitis, obesity, sarcoidosis, depression, history of hyperglycemia, history of tobacco use, sleep apnea presents with falls in setting of recent lumbar surgery and found to have Flu A on admission. Generalized weakness Falls History of back surgery and having pain Denies any traumatic nature of fall - more that legs are giving out 2/2 weakness Pain control with scheduled Tylenol, lidocaine patch, PRN oxycodone for mod- severe pain PT/OT recommending rehab Ortho spine consulted - Dr. Rizvi also recommending increased PT and transfer to chair. No additional imaging at this time Appreciate CM help with rehab Flu A Likely contributing to his weakness and falls Otherwise mostly asymptomatic Empirically started on Tamiflu (day 1) Droplet precautions Obstructive sleep apnea CPAP nightly Anemia Recent acute blood loss anemia 2/2 surgery requiring 2u prbc, discharged home on 08/13/24 Hgb stable at 9.1 Daily CBC Diabetes II Holding home PO medications Sliding scale Will monitor HTN Holding lisinopril and hydrochlorothiazide for now given acute illness, decreased PO intake Will monitor GERD On omeprazole Depression Duloxetine and Zoloft Abnormal CXR Initial CXR with ? soft tissue bulge and edge along the medial aspect of the right lung base which is not clearly present on the prior study. Follow up chest x-ray PA lateral view today with mild atelectasis or scarring in the lung bases. Otherwise no acute findings. Hyperlipidemia On statin DVT prophylaxis: SCDs for now Code: FULL PCP: BRAYAN Borrero Disposition: admitted to med/surg I spent a total of 50 minutes coordinating, documenting, and providing care for this patient excluding time spent in the performance of separately billed services or time spent by another provider/QHP. Admission and Anticipated Discharge Date Admission Date: August 17, 2024 Supervising Physician Co-Signing Physician Notes I have seen and discussed the case with the collaborating advanced practitioner. I agree with the above PN. I have reviewed and confirmed the patients medical history, the findings on physical examination, and the patients diagnosis and treatment plan with Dave SCHMIDT and agree with the information documented. Mr Bravo is t status post multilevel lumbar decompression fusion on 08/09 admitted now for fall and weakness iso Flu A. Continue Tamiflu and supportive measures. Evaluated by Ortho Spine--PT/OT ongoing. Dispo pending I spent a total of 5 minutes coordinating, documenting, and providing care for this patient excluding time spent in the performance of separately billed services. All of the aforementioned completed outside of collaborating with the assigned advanced practitioner for a full treatment plan. I have reviewed the advanced practitioner's documentation, and I agree with, and take responsibility for the plan of care Subjective Seen and examined in 312. Feeling fatigued today and painful with movement, specifically in his hips. Endorsing some congestion but mainly fatigue from flu. No lightheadedness or headache. No fever, chills, chest pain, shortness of breath, nausea, vomiting, abdominal pain, dysuria, diarrhea or constipation. Review of Systems Review of Systems: At least ten systems reviewed and negative except as noted in the HPI. Physical Exam Physical Exam: Gen: WD/WN, NAD, resting in bed, appears ill, A&Ox3 HEENT: Normocephalic, atraumatic, conjunctivae moist, sclerae anicteric, mucous membranes moist Lung: Clear to Auscultation bilaterally, no wheezes/rales/rhonchi Heart: Regular rate, regular rhythm Abdomen: Soft, NT, ND +BS x 4 Extremities: no edema Skin: Warm, no rash Results & Data Results & Data Vital Signs (Past 12 Hours) Vital Signs Temp Pulse Pulse Resp BP BP BP 08/17/24 07:50 36.4 C L 76 16 110/68 08/17/24 05:38 08/17/24 05:38 36.9 C 78 18 121/77 08/17/24 05:12 76 18 156/84 H 08/17/24 03:00 95 H 18 145/111 H 08/17/24 01:47 71 08/17/24 01:42 82 19 139/72 08/17/24 00:46 36.9 C 80 19 126/62 08/16/24 23:19 84 19 107/97 08/16/24 22:36 83 16 138/70 08/16/24 22:00 93 H 18 133/78 08/16/24 21:28 91 H 08/16/24 21:27 94 H 13 124/75 08/16/24 21:16 08/16/24 21:15 37.4 C 95 H 20 124/75 Pulse Ox O2 Del Method O2 Flow Rate 08/17/24 07:50 95 Room Air 08/17/24 05:38 Room Air 08/17/24 05:38 98 Room Air 08/17/24 05:12 96 08/17/24 03:00 96 Nasal Cannula 3 08/17/24 01:47 08/17/24 01:42 99 Nasal Cannula 3 08/17/24 00:46 99 Nasal Cannula 3 08/16/24 23:19 93 Room Air 08/16/24 22:36 95 08/16/24 22:00 96 08/16/24 21:28 08/16/24 21:27 08/16/24 21:16 94 Room Air 08/16/24 21:15 94 Room Air Laboratory Results Short CBC 08/16/24 08/17/24 Range/Units 21:31 06:48 WBC 4.39 L 4.18 L (4.8-10.8) K/ul Hgb 9.3 L 9.1 L (14.0-18.0) g/dl Hct 28.4 L 27.7 L (42.0-52.0) % Plt Count 202 187 (130-400) K/uL BMP 08/16/24 08/17/24 21:31 06:48 Sodium 134 L 136 Potassium 4.2 3.9 Chloride 101 101 Carbon Dioxide 27 29 BUN 19 15 Creatinine 0.84 0.77 Glucose 206 H 124 H Calcium 8.6 8.2 L Liver Function 08/16/24 Range/Units 21:31 Total Bilirubin 0.4 (0.2-1.0) mg/dl AST 14 (13-39) U/L ALT 14 (7-52) U/L Alkaline Phosphatase 41 (34-104) U/L Albumin 3.6 (3.4-5.0) gm/dl Urine 08/17/24 Range/Units 01:04 Urine Color Yellow Urine Appearance Clear (Clear) Urine pH 6.0 (4.5-7.5) Ur Specific [place] 1.018 (1.000-1.030) Urine Protein Negative (Negative) Urine Glucose (UA) Negative (Negative) Diagnostic Findings Chest X-Ray 08/16/24 21:16 Exam(s): XR CXR 1 VIEW EXAM: XR Chest, 1 View CLINICAL HISTORY: Reason for exam: weakness. TECHNIQUE: Frontal view of the chest. COMPARISON: July 23, 2012. FINDINGS: Lungs: There is a soft tissue bulge and edge along the medial aspect of the right lung base which is not clearly present on the prior study. A mass is difficult to exclude. Pleural space: Unremarkable. No pneumothorax or pleural fluid. Heart: Unremarkable. No cardiomegaly. Mediastinum: Unremarkable. Normal mediastinal contour. Bones/joints: No acute findings. IMPRESSION: There is a soft tissue bulge and edge along the medial aspect of the right lung base which is not clearly present on the prior study. A mass is difficult to exclude. No other abnormalities. Electronically signed by: Toni Herrera MD 08/16/24 23:26 PM Chest X-Ray 08/17/24 05:38 XR chest 2V PA/lateral CLINICAL HISTORY: right lung base mass? on portable cxr COMPARISON STUDY: 08/16/2024 FINDINGS: Heart size and pulmonary vasculature are normal. The finding at the medial right lung base on the previous exam is no longer seen. There is mild atelectasis or scarring in the lung bases on the lateral view. No consolidation or pleural effusion. No pneumothorax seen. IMPRESSION: Mild atelectasis or scarring in the lung bases. Otherwise no acute findings. ACT 112: Negative or not required by law. Electronically signed by: Santo Chaparro M.D. 08/17/2024 9:17 AM
[2024-08-17] MEDS: SERTRALINE HCL 50 MG TABLET PO SCH (08:11)
[2024-08-17] MEDS: DULoxetine HCL 30 MG CAP PO SCH (08:11)
[2024-08-17] MEDS: PANTOprazole 40 MG TAB PO SCH (08:11)
[2024-08-17] MEDS: OSELTAMIVIR PHOSPHATE 75 MG CAP PO SCH (08:11)
[2024-08-17] MEDS: ASPIRIN 81 MG ECTAB PO SCH (08:12)
[2024-08-17] MEDS: ATORVASTATIN 20 MG TAB PO SCH (08:12)
[2024-08-17] MEDS: INSULIN ASPART PER UNIT CHARGE SC SCH (08:14)
[2024-08-17 08:29] LABS: Estimated Average Glucose 140 mg/dl; Hemoglobin A1C 6.5 % (4.5-5.6)
[2024-08-17] MEDS ORDERED: lisinopril 20 MG TAB PO SCH (09:00)
[2024-08-17] MEDS: oxyCODONE HCL IR 5 MG TAB (IMMEDIATE RELEASE) PO PRN ×2 (09:18→13:39)
--- NOTE | 2024-08-17 09:18 | XRay Report ---
XR chest 2V PA/lateral CLINICAL HISTORY: right lung base mass? on portable cxr COMPARISON STUDY: 08/16/2024 FINDINGS: Heart size and pulmonary vasculature are normal. The finding at the medial right lung base on the previous exam is no longer seen. There is mild atelectasis or scarring in the lung bases on th e lateral view. No consolidation or pleural effusion. No pneumothorax seen. IMPRESSION: Mild atelectasis or scarring in the lung bases. Otherwise no acute findings. ACT 112: Negative or not required by law. Electronically signed by: Santo Chaparro M.D. 08/17/2024 9:17 AM
--- NOTE | 2024-08-17 09:40 | Orthopedic Consultation ---
Date of Consultation August 17, 2024 Assessment & Plan (1) Spondylolisthesis, lumbar region: Assessment status post multilevel lumbar decompression fusion. Plan at this time I would encourage him to begin bed to chair transfers. He is quite weak. Will hopefully increase physical therapy tomorrow. History of Present Illness Reason for Consultation: Patient complaining of generalized weakness. He is noting some right sciatica with ambulation. In bed he is very comfortable. Attending Physician: Fern Neves MD Allergies Allergy/AdvReac Type Severity Reaction Status Date / Time adhesive tape Allergy Intermediate Sores, Verified 08/16/24 23:26 "Ripped my skin right off" cholecalciferol (vitamin D3) Allergy Intermediate Itching Verified 08/16/24 23:26 [From Vitamin D3] ergocalciferol (vitamin D2) Allergy Intermediate Itching Verified 08/16/24 23:26 [From Vitamin D2] testosterone Allergy Intermediate Itching Verified 08/16/24 23:26 Penicillins Allergy Unknown HAPPENED Verified 08/16/24 23:26 A CHILD Home Medications Medication Instructions Recorded Confirmed Type aspirin 81 mg tablet,delayed 81 mg PO QAM 07/02/24 08/16/24 History release atorvastatin 20 mg tablet 20 mg PO QAM 07/02/24 08/16/24 History duloxetine 30 mg capsule,delayed 30 mg PO QAM 07/02/24 08/16/24 History release glipizide 5 mg tablet 2.5 mg PO BID 07/02/24 08/16/24 History hydrochlorothiazide 25 mg tablet 25 mg PO QAM 07/02/24 08/16/24 History lisinopril 20 mg tablet 20 mg PO QAM 07/02/24 08/16/24 History metformin 500 mg tablet 500 mg PO BID 07/02/24 08/16/24 History omeprazole 20 mg capsule,delayed 20 mg PO QAM 07/02/24 08/16/24 History release sertraline 50 mg tablet 50 mg PO QAM 07/02/24 08/16/24 History oxycodone 5 mg tablet 5 mg PO Q6H PRN pain #30 tabs 08/10/24 08/16/24 Rx cholecalciferol (vitamin D3) 1,250 50,000 unit PO WK #11 caps 08/13/24 08/16/24 Rx mcg (50,000 unit) capsule Patient History Medical History Sleep apnea CPAP-compliant History of prostate cancer (~2007) surgery only - no xrt/chemo Acid reflux controlled, stable per pt Hx of Lyme disease (~2019) x2 completed antibiotic tx-denies residual issues Hypertension controlled, stable per pt Lung disease pt unsure of type Diabetes mellitus, type 2 NIDDM Adverse effect of anesthesia awareness under anesthesia Surgical History History of surgery more than 20 yrs ago- "gland near prostate" pt cannot recall additional details Hx of colonoscopy History of bilateral cataract extraction History of nasal surgery deviated septum History of tonsillectomy History of hemorrhoidectomy History of hernia repair History of total left knee replacement History of prostatectomy Social History Smoking Status: Former smoker Tobacco Type: Cigarettes Second Hand Exposure: No; Do You Dip or Chew Tobacco: No; Tobacco Cessation Education Requested by Patient: No Hx Alcohol Use: Yes (no drink in 2 weeks, previously would drink 5-6 beers a day) Alcohol type: beer Hx Substance Use: No Preferred Language: [place]ralt[place] Communication Ability: Effective Hvac Technician Residential Required: No Beliefs That Will Affect Care: None Current Living Situation: Spouse Feels Safe at Home: Yes Safety Concerns: Feels Safe At This Time Assistive Devices: Walker Physical Exam Physical Exam: On exam incision is intact. He has good strength testing. Sensory is intact. Results & Data Vital Signs (Past 12 Hours) Vital Signs Temp Pulse Pulse Resp BP BP BP 08/17/24 07:50 36.4 C L 76 16 110/68 08/17/24 05:38 08/17/24 05:38 36.9 C 78 18 121/77 08/17/24 05:12 76 18 156/84 H 08/17/24 03:00 95 H 18 145/111 H 08/17/24 01:47 71 08/17/24 01:42 82 19 139/72 08/17/24 00:46 36.9 C 80 19 126/62 08/16/24 23:19 84 19 107/97 08/16/24 22:36 83 16 138/70 08/16/24 22:00 93 H 18 133/78 Pulse Ox O2 Del Method O2 Flow Rate 08/17/24 07:50 95 Room Air 08/17/24 05:38 Room Air 08/17/24 05:38 98 Room Air 08/17/24 05:12 96 08/17/24 03:00 96 Nasal Cannula 3 08/17/24 01:47 08/17/24 01:42 99 Nasal Cannula 3 08/17/24 00:46 99 Nasal Cannula 3 08/16/24 23:19 93 Room Air 08/16/24 22:36 95 08/16/24 22:00 96
[2024-08-17] MEDS: HYDROmorphone INJ 0.5 MG/0.5 ML SYR IV PRN (10:53)
[2024-08-17] MEDS: ACETAMINOPHEN 500 MG TAB PO PRN (13:14)
[2024-08-17] MEDS: LIDOCAINE 5% 1 PATCH TD STA (13:14)
[2024-08-17] MEDS: POLYETHYLENE (MIRALAX) 17 GM PACK PO PRN (13:19)
--- NOTE | 2024-08-17 15:25 | Electrocardiogram Report ---
Test Reason : Blood Pressure : */* mmHG Vent. Rate : 96 BPM Atrial Rate : 96 BPM P-R Int : 136 ms QRS Dur : 80 ms QT Int : 350 ms P-R-T Axes : 60 31 47 degrees QTcB Int : 442 ms Normal sinus rhythm Low voltage QRS Nonspecific ST abnormality Abnormal ECG When compared with ECG of 14-Jul-2024 11:24, No significant change was found Confirmed by Sherman Medina [id number] on 08/17/2024 3:25:28 PM Referred By: REFERRED SELF Confirmed By: Sherman Medina
[2024-08-18 06:26] LABS: Hematocrit (blood only) 27.7 % (42.0-52.0); Hemoglobin 9.1 g/dl (14.0-18.0); Mean Corpuscular Hemoglobin 29.6 pg (25.0-34.0); Mean Corpuscular Hgb Conc 32.9 g/dL (32.0-36.0); Mean Corpuscular Volume 90.2 fL (80.0-100.0); Mean Platelet Volume 9.1 fL (9.4-12.4); Platelet Count 197 K/uL (130-400); RDW Coefficient of Variation 13.7 % (11.5-14.5); RDW Standard Deviation 44.9 fL (36.4-46.3); Red Blood Count 3.07 M/uL (4.70-6.10); White Blood Count 4.83 K/ul (4.8-10.8)
[2024-08-18 06:38] LABS: BUN Creatinine Ratio 20.9 (10-20); Calcium 8.4 mg/dl (8.6-10.3); Creatinine Clr Calc Pharmacy 118.2 ml/min; Potassium 4.4 mmol/L (3.5-5.1)
--- NOTE | 2024-08-18 10:05 | XRay Report ---
XR lumbar spine 2-3V CLINICAL HISTORY: post op COMPARISON STUDY: 08/09/2024 FINDINGS: Posterior metallic fusion from T11 through L5 shows no hardware complication. There is stab le borderline grade 1/2 anterolisthesis of L4 on 5. No fracture seen. Stable degenerative changes. IMPRESSION: No acute findings. ACT 112: Negative or not required by law. Electronically signed by: Santo Chaparro M.D. 08/18/2024 10:04 AM
--- NOTE | 2024-08-18 11:26 | Hospitalist Progress Note ---
Date of Service August 18, 2024 Assessment & Plan (1) Weakness: Plan: This is a 74-year-old male with past medical history significant for hyperlipidemia, chronic rhinitis, obesity, sarcoidosis, depression, history of hyperglycemia, history of tobacco use, sleep apnea presents with falls in setting of recent lumbar surgery and found to have Flu A on admission. Generalized weakness Falls History of back surgery and having pain Denies any traumatic nature of fall - more that legs are giving out 2/2 weakness Pain control with scheduled Tylenol, PRN oxycodone for mod-severe pain Per Dr. Rizvi today, XR demonstrating loss of fixation of the S1 pedicle screw on right likely source of nerve pain, specifically with standing and ambulation. Recommending return to OR on Friday. Avoid NSAIDs with anticipated OR Friday, activity limit to walking in room only Likely to benefit from rehab post-op Flu A Asymptomatic Possibly contributing to his weakness and falls Empirically started on Tamiflu (day 2) Droplet precautions Obstructive sleep apnea CPAP nightly Anemia Recent acute blood loss anemia 2/2 surgery requiring 2u prbc, discharged home on 08/13/24 Hgb stable at 9.1 Daily CBC Diabetes II Holding home PO medications Sliding scale Will monitor HTN Holding hydrochlorothiazide with decreased PO intake Resume lisinopril tomorrow AM Monitor GERD On omeprazole Depression Duloxetine and Zoloft Abnormal CXR Initial CXR with ? soft tissue bulge and edge along the medial aspect of the right lung base which is not clearly present on the prior study. Follow up chest x-ray PA lateral view today with mild atelectasis or scarring in the lung bases. Otherwise no acute findings. Hyperlipidemia On statin DVT prophylaxis: SCDs for now Code: FULL PCP: BRAYAN Borrero Disposition: admitted to med/surg Care coordinated with Dr. Manzo. I spent a total of 40 minutes coordinating, documenting, and providing care for this patient excluding time spent in the performance of separately billed services or time spent by another provider/QHP. Admission and Anticipated Discharge Date Admission Date: August 17, 2024 Supervising Physician Co-Signing Physician Notes Patient is seen and examined at bedside. States having significant lower back pain radiating down the extremities this morning. Was having PT evaluation during my encounter. He denies any chest pain, dyspnea, nausea, vomiting, abdominal pain, cough, dizziness. On exam patient is obese, no apparent distress, normocephalic atraumatic, EOMI, normal breath sounds, clear to auscultation, S1-S2, no murmur, no pedal edema, abdomen soft, nontender, normal bowel sounds, alert, awake, oriented, grossly moves all extremities, back: Surgical site in dressing. Patient is currently being managed for pain back pain likely secondary to loosening of hardware, generalized weakness, flu A infection. Plan for revision of hardware tomorrow by orthopedic spine. Pain control, PT OT, fall precautions. Continue Tamiflu for flu A infection. Noted chronic normocytic anemia. Monitor for postop anemia. Continue insulin while hospitalized for management of diabetes mellitus. Incentive spirometry to help with atelectasis. I personally interviewed and examined the patient at bedside. I have reviewed the advanced practitioner's documentation on the date of service referred in note and agree with plan. Patient's care is coordinated with Pooja Acosta PA-C. Please refer to the documentation above for details of patient's presentation and for discussion of other issues. I spent a total [id number] coordinating, documenting, and providing care for this patient excluding time spent in the performance of separately billed services or time spent by another provider/QHP. Subjective Seen and examined in 312. Feeling fatigued today and painful with movement, specifically in his hips. Did get up and walk in [place] with therapy. Still feeling worn out and has some congestion. No flu symptoms otherwise. No lightheadedness or headache. No fever, chills, chest pain, shortness of breath, nausea, vomiting, abdominal pain, dysuria, diarrhea or constipation. Review of Systems Review of Systems: At least ten systems reviewed and negative except as noted in the HPI. Physical Exam Physical Exam: Gen: WD/WN, NAD, resting in bed, appears ill, obese, A&Ox3 HEENT: Normocephalic, atraumatic, conjunctivae moist, sclerae anicteric, mucous membranes moist Lung: Clear to Auscultation bilaterally, no wheezes/rales/rhonchi Heart: Regular rate, regular rhythm Abdomen: Soft, NT, ND +BS x 4 Extremities: no edema Skin: Warm, no rash Results & Data Results & Data Vital Signs (Past 12 Hours) Vital Signs Temp Pulse Resp BP Pulse Ox O2 Del Method 08/18/24 07:25 36.7 C 81 18 148/82 H 93 Room Air Laboratory Results Short CBC 08/18/24 Range/Units 05:55 WBC 4.83 (4.8-10.8) K/ul Hgb 9.1 L (14.0-18.0) g/dl Hct 27.7 L (42.0-52.0) % Plt Count 197 (130-400) K/uL BMP 08/18/24 05:55 Sodium 134 L Potassium 4.4 Chloride 100 Carbon Dioxide 29 BUN 14 Creatinine 0.67 Glucose 161 H Calcium 8.4 L Diagnostic Findings Chest X-Ray 08/16/24 21:16 Exam(s): XR CXR 1 VIEW EXAM: XR Chest, 1 View CLINICAL HISTORY: Reason for exam: weakness. TECHNIQUE: Frontal view of the chest. COMPARISON: July 23, 2012. FINDINGS: Lungs: There is a soft tissue bulge and edge along the medial aspect of the right lung base which is not clearly present on the prior study. A mass is difficult to exclude. Pleural space: Unremarkable. No pneumothorax or pleural fluid. Heart: Unremarkable. No cardiomegaly. Mediastinum: Unremarkable. Normal mediastinal contour. Bones/joints: No acute findings. IMPRESSION: There is a soft tissue bulge and edge along the medial aspect of the right lung base which is not clearly present on the prior study. A mass is difficult to exclude. No other abnormalities. Electronically signed by: Toni Herrera MD 08/16/24 23:26 PM Chest X-Ray 08/17/24 05:38 XR chest 2V PA/lateral CLINICAL HISTORY: right lung base mass? on portable cxr COMPARISON STUDY: 08/16/2024 FINDINGS: Heart size and pulmonary vasculature are normal. The finding at the medial right lung base on the previous exam is no longer seen. There is mild atelectasis or scarring in the lung bases on the lateral view. No consolidation or pleural effusion. No pneumothorax seen. IMPRESSION: Mild atelectasis or scarring in the lung bases. Otherwise no acute findings. ACT 112: Negative or not required by law. Electronically signed by: Santo Chaparro M.D. 08/17/2024 9:17 AM Lumbar Spine X-Ray 08/18/24 05:35 XR lumbar spine 2-3V CLINICAL HISTORY: post op COMPARISON STUDY: 08/09/2024 FINDINGS: Posterior metallic fusion from T11 through L5 shows no hardware complication. There is stable borderline grade 1/2 anterolisthesis of L4 on 5. No fracture seen. Stable degenerative changes. IMPRESSION: No acute findings. ACT 112: Negative or not required by law. Electronically signed by: Santo Chaparro M.D. 08/18/2024 10:04 AM
--- NOTE | 2024-08-18 12:29 | Orthopedic Progress Note ---
Date of Service August 18, 2024 Assessment & Plan (1) Right sided sciatica: Plan: At this time his x-rays demonstrate evidence of loss of fixation of the S1 pedicle screw on the right. The scarlet appears to have dissociated from the tulip head. I have reviewed this with the patient. As this is the bottom of a very long construct undoubtedly this increased strain across the level has affected his nerves particular with standing and ambulation. I am recommending return to the OR to address this issue. Require removal of the scarlet and placement of new screw. The surgery should not take terribly long much smaller scale from his index procedure. Patient understands agrees. We are planning for surgery Friday. Admission and Anticipated Discharge Date Admission Date: August 17, 2024 Subjective Patient is comfortable at rest but struggled with significant right sciatica with standing and ambulation. Physical Exam Physical Exam: On exam patient is in the chair at the bedside. He is comfortable at this time. Dressings in place. Good strength testing. Results & Data Vital Signs (Past 12 Hours) Vital Signs Temp Pulse Resp BP Pulse Ox O2 Del Method 08/18/24 07:25 36.7 C 81 18 148/82 H 93 Room Air
[2024-08-19 06:46] LABS: Hematocrit (blood only) 29.1 % (42.0-52.0); Hemoglobin 9.8 g/dl (14.0-18.0); Mean Corpuscular Hemoglobin 30.1 pg (25.0-34.0); Mean Corpuscular Hgb Conc 33.7 g/dL (32.0-36.0); Mean Corpuscular Volume 89.3 fL (80.0-100.0); Mean Platelet Volume 9.1 fL (9.4-12.4); Platelet Count 215 K/uL (130-400); RDW Coefficient of Variation 13.4 % (11.5-14.5); RDW Standard Deviation 43.4 fL (36.4-46.3); Red Blood Count 3.26 M/uL (4.70-6.10); White Blood Count 5.43 K/ul (4.8-10.8)
[2024-08-19 07:26] LABS: BUN Creatinine Ratio 17.7 (10-20); Calcium 8.6 mg/dl (8.6-10.3); Creatinine Clr Calc Pharmacy 127.7 ml/min; Potassium 4.3 mmol/L (3.5-5.1)
--- NOTE | 2024-08-19 07:59 | Hospitalist Progress Note ---
Date of Service August 19, 2024 Assessment & Plan (1) Weakness: Plan: This is a 74-year-old male with past medical history significant for hyperlipidemia, chronic rhinitis, obesity, sarcoidosis, depression, history of hyperglycemia, history of tobacco use, sleep apnea presents with falls in setting of recent lumbar surgery and found to have Flu A on admission. Generalized weakness Fall H/O back surgery and having sciatic pain right side Denies any traumatic nature of fall; more that legs are giving out secondary to weakness Pain control with scheduled Tylenol, as needed oxycodone for moderate to severe pain; has utilized 1 dose of oxycodone over past [address] Rizvi anticipating return to the OR on Sunday 08/20 for screw removal and replacement Avoid NSAIDs and activity limitation to walking in the room only Anticipate that patient may benefit from rehab Postoperatively Flu A Asymptomatic; incidental finding on admission. May be contributing to his weakness and falls Empirically started on Tamiflu; day [address] Denies cough or upper respiratory symptoms. Obstructive sleep apnea CPAP nightly; Reports being tired this morning Anemia Recent acute blood loss anemia 2/2 surgery requiring 2u prbc, discharged home on 08/13/24 Hgb 9.1--> today 9.8 Really staying hydrated vaginal water for the day the other days I got a bottle and I will look at the end of the day umbilical I drink none of that is being Daily CBC Will add on anemia panel for today. Vitamin D deficiency: Patient reports that he was on high-dose of vitamin D in the past and he developed pruritus (listed as an allergy); dose reduction prior to hospitalization and he has tolerated the first dose; will continue weekly dosing of vitamin D3. Diabetes II Holding home PO medications Sliding scale HTN Holding hydrochlorothiazide with decreased PO intake; restart today (08/19) lisinopril resumed and tolerating well; No JACINTO identified on labs GERD On omeprazole Depression takes duloxetine and Zoloft; continue Abnormal CXR Initial CXR with ? soft tissue bulge and edge along the medial aspect of the right lung base which is not clearly present on the prior study. Follow up chest x-ray PA lateral view today with mild atelectasis or scarring in the lung bases. Recommend follow-up as an outpatient Hyperlipidemia On statin; continue DVT prophylaxis: SCDs for now Code: FULL PCP: BRAYAN Borrero Disposition: admitted to med/surg I spent a total of 51 minutes coordinating, documenting, and providing care for this patient excluding time spent in the performance of separately billed services or time spent by another provider/QHP. Admission and Anticipated Discharge Date Admission Date: August 17, 2024 Supervising Physician Co-Signing Physician Notes Patient is seen and examined at bedside. Back pain is better today. Offers no new complaints. Denies any chest pain, dyspnea, nausea, vomiting, abdominal pain, cough, dizziness. On exam patient is obese, no apparent distress, normocephalic atraumatic, EOMI, normal breath sounds, clear to auscultation, S1- S2, no murmur, no pedal edema, abdomen soft, nontender, normal bowel sounds, alert, awake, oriented, grossly moves all extremities, back: Surgical site in dressing. Patient is currently being managed for pain back pain likely secondary to loosening of hardware, generalized weakness, flu A infection. Plan for revision of hardware by orthopedic spine. Pain control, PT OT, fall precautions. Continue Tamiflu for flu A infection. Noted chronic normocytic anemia. Monitor for postop anemia. Continue insulin while hospitalized for management of diabetes mellitus. Incentive spirometry to help with atelectasis. I personally interviewed and examined the patient at bedside. I have reviewed the advanced practitioner's documentation on the date of service referred in note and agree with plan. Patient's care is coordinated with Merlyn SALINAS. Please refer to the documentation above for details of patient's presentation and for discussion of other issues. I spent a total [id number] coordinating, documenting, and providing care for this patient excluding time spent in the performance of separately billed services or time spent by another provider/QHP. Subjective Patient's back pain is still quite limiting today with right sciatica pain. He is lying in his hospital bed and able to position himself. Patient was feeling tired this morning; used CPAP overnight. Denies confusion, AMS, dizziness, SOB, chest pain, abdominal pain or tenderness. Pt reports that he was on a high dose of Vitamin D in the past and he developed prutiris from this; has been reduced prior to hospitalization and has tolerated the first dose. See A/P for further details. Review of Systems Review of Systems: Neuro: (-) Falls, trauma, slurred speech HEENT: (-) VALENZUELA, dizziness, dysphagia, visual or auditory changes CV: (-) CP, palpitations, swelling Resp: (-) SOB GI: (-) appetite changes, N/V/D, bowel changes : (-) urinary changes Skin: (-) rashes Psych: (-) anxiety, depression Physical Exam Physical Exam: Neuro: AAOx4, PERRLA, no aphagia, memory changes, CNII-XII grossly intact HEENT: head normocephalic, moist mucus membranes CV: S1/S2, (-) M/G/R, (-) edema, cap refill < 3 seconds Resp: Lungs CTA in all [place]. On RA GI: Abdomen S/NT/ND, Ax4 bowel sounds, (-) CVA tenderness Musculoskeletal: 5/5 B/L UE strength, 5/5 B/L LE strength. (+) right sided sciatica Skin: (-) rashes , (-) erythema. Psych: euthymic mood Results & Data Results & Data Vital Signs (Past 12 Hours) Vital Signs Temp Pulse Pulse Resp BP Pulse Ox O2 Del Method 08/19/24 07:04 37.0 C 87 18 149/87 H 96 Room Air 08/18/24 23:25 80 16 97 Laboratory Results Short CBC 08/19/24 Range/Units 06:19 WBC 5.43 (4.8-10.8) K/ul Hgb 9.8 L (14.0-18.0) g/dl Hct 29.1 L (42.0-52.0) % Plt Count 215 (130-400) K/uL BMP 08/19/24 06:19 Sodium 135 L Potassium 4.3 Chloride 99 Carbon Dioxide 29 BUN 11 Creatinine 0.62 Glucose 151 H Calcium 8.6
[2024-08-19] MEDS: CHOLECALCIFEROL 125 MCG (5,000 UNITS) TAB PO SCH (08:09)
--- NOTE | 2024-08-19 08:27 | Orthopedic Progress Note ---
Date of Service August 19, 2024 Assessment & Plan (1) Right sided sciatica: Plan: I will make the patient n.p.o. after midnight with plan for revision hardware on Friday. Admission and Anticipated Discharge Date Admission Date: August 17, 2024 Subjective Patient's back pain is still quite limiting prickly with right sciatica. He is comfortable in the chair today. Physical Exam Physical Exam: Patient is in the chair at the bedside. He is neurologically intact. Results & Data Vital Signs (Past 12 Hours) Vital Signs Temp Pulse Pulse Resp BP Pulse Ox O2 Del Method 08/19/24 07:04 37.0 C 87 18 149/87 H 96 Room Air 08/18/24 23:25 80 16 97
[2024-08-19] MEDS: lisinopril 20 MG TAB PO SCH (08:38)
[2024-08-19 12:57] LABS: Reticulocyte % 1.46 % (0.50-2.00)
[2024-08-19 13:05] LABS: Ferritin 586.9 ng/ml (8-388)
[2024-08-20 06:43] LABS: Hematocrit (blood only) 30.7 % (42.0-52.0); Hemoglobin 10.2 g/dl (14.0-18.0); Mean Corpuscular Hemoglobin 29.3 pg (25.0-34.0); Mean Corpuscular Hgb Conc 33.2 g/dL (32.0-36.0); Mean Corpuscular Volume 88.2 fL (80.0-100.0); Mean Platelet Volume 9.1 fL (9.4-12.4); Platelet Count 237 K/uL (130-400); RDW Coefficient of Variation 13.4 % (11.5-14.5); RDW Standard Deviation 43.2 fL (36.4-46.3); Red Blood Count 3.48 M/uL (4.70-6.10); White Blood Count 6.77 K/ul (4.8-10.8)
[2024-08-20] MEDS ORDERED: Nursing to Pharmacy Communication SCH (07:00)
[2024-08-20 07:13] LABS: BUN Creatinine Ratio 16.9 (10-20); Calcium 8.7 mg/dl (8.6-10.3); Creatinine Clr Calc Pharmacy 121.8 ml/min; Potassium 3.9 mmol/L (3.5-5.1)
--- NOTE | 2024-08-20 07:19 | Hospitalist Progress Note ---
Date of Service August 20, 2024 Assessment & Plan (1) Weakness: Plan: This is a 74-year-old male with past medical history significant for hyperlipidemia, chronic rhinitis, obesity, sarcoidosis, depression, history of hyperglycemia, history of tobacco use, sleep apnea presents with falls in setting of recent lumbar surgery and found to have Flu A on admission. Decompression with bilateral foraminotomies L5-S1. POD #0 s/p removal of instrumentation S1 pedicle screw and scarlet on the right with replacement pedicle screw. Post op, hypothermic 34.8; warm blankets applied some hypotension soft BP 92 SBP; continue IVF; switch to 0.9% @ 100mL/hour x1 bag IV Tylenol for now; avoid narcotic while BP low PT/OT, incentive spirometry Possible rehab post op; [facility] referrals placed Generalized weakness Fall H/O back surgery and having sciatic pain right side Denies any traumatic nature of fall; more that legs are giving out secondary to weakness Pain control with scheduled Tylenol, as needed oxycodone for moderate to severe pain; has utilized 1 dose of oxycodone over past 24 hours. Avoid NSAIDs and activity limitation to walking in the room only Anticipate that patient may benefit from rehab post-op Returning to OR today 08/20 for screw removal and replacement monitor for BM and pain control post op Flu A Asymptomatic; incidental finding on admission. May be contributing to his weakness and falls Empirically started on Tamiflu; day [address] Denies cough or upper respiratory symptoms. Obstructive sleep apnea CPAP nightly; toelrating well Anemia Recent acute blood loss anemia 2/2 surgery requiring 2u prbc, discharged home on 08/13/24 Hgb 9.1--> today 10.2 Daily CBC ; Anemia panel normal Vitamin D deficiency: Patient reports that he was on high-dose of vitamin D in the past and he developed pruritus (listed as an allergy); dose reduction prior to hospitalization and he has tolerated the first dose continue weekly dosing of vitamin D3. Diabetes II Holding home PO medications Sliding scale HTN HCTZ restarted on 08/19 lisinopril resumed and tolerating well; No JACINTO identified on labs GERD Continue omeprazole Depression takes duloxetine and Zoloft; continue Abnormal CXR Initial CXR with ? soft tissue bulge and edge along the medial aspect of the right lung base which is not clearly present on the prior study. Follow up chest x-ray PA lateral view today with mild atelectasis or scarring in the lung bases. Recommend follow-up as an outpatient Hyperlipidemia On statin; continue DVT prophylaxis: SCDs for now Code: FULL PCP: BRAYAN Borrero Disposition: admitted to med/surg I spent a total of 53 minutes coordinating, documenting, and providing care for this patient excluding time spent in the performance of separately billed services or time spent by another provider/QHP. Admission and Anticipated Discharge Date Admission Date: August 17, 2024 Supervising Physician Co-Signing Physician Notes Patient was in OR when attempted to see today. Chart reviewed. Postoperatively patient hypotensive. Patient is currently being managed for pain back pain likely secondary to loosening of hardware, generalized weakness, flu A infection. Patient had replacement of hardware by Dr. Rizvi today. Will hold lisinopril, HCTZ for now. IV fluids as needed. Monitor blood pressure closely. Pain control, PT OT, fall precautions. Continue Tamiflu for flu A infection. Noted chronic normocytic anemia. Monitor for postop anemia. Continue insulin while hospitalized for management of diabetes mellitus. Incentive spirometry to help with atelectasis. I have reviewed the advanced practitioner's documentation on the date of service referred in note and agree with plan. Patient's care is coordinated with Merlyn SALINAS. Please refer to the documentation above for details of patient's presentation and for discussion of other issues. I spent a total [id number] coordinating, documenting, and providing care for this patient excluding time spent in the performance of separately billed services or time spent by another provider/QHP. Subjective Patient's back pain is still quite limiting today with right sciatica pain. He was getting back into bed from the bedside chair when I visited with him. Plan for OR today and patient was feeling anxious and nauseated. Denies confusion, AMS, dizziness, SOB, chest pain, abdominal pain or tenderness. See A/P for further details. Review of Systems Review of Systems: Neuro: (-) Falls, trauma, slurred speech HEENT: (-) VALENZUELA, dizziness, dysphagia, visual or auditory changes CV: (-) CP, palpitations, swelling Resp: (-) SOB GI: (-) appetite changes, N/V/D, bowel changes : (-) urinary changes Skin: (-) rashes Psych: (-) anxiety, depression Physical Exam Physical Exam: Neuro: AAOx4, PERRLA, no aphagia, memory changes, CNII-XII grossly intact HEENT: head normocephalic, moist mucus membranes CV: S1/S2, (-) M/G/R, (-) edema, cap refill < 3 seconds Resp: Lungs CTA in all [place]. On RA GI: Abdomen S/NT/ND, Ax4 bowel sounds, (-) CVA tenderness Musculoskeletal: 5/5 B/L UE strength, 5/5 B/L LE strength. (+) right sided sciatica Skin: (-) rashes , (-) erythema. Psych: euthymic mood Results & Data Results & Data Vital Signs (Past 12 Hours) Vital Signs Temp Pulse Pulse Resp BP Pulse Ox O2 Del Method 08/19/24 22:10 93 H 12 94 08/19/24 19:58 36.6 C 95 H 18 127/84 96 Room Air 08/19/24 19:50 Room Air, CPAP Laboratory Results Short CBC 08/20/24 Range/Units 06:14 WBC 6.77 (4.8-10.8) K/ul Hgb 10.2 L (14.0-18.0) g/dl Hct 30.7 L (42.0-52.0) % Plt Count 237 (130-400) K/uL BMP 08/20/24 06:14 Sodium 133 L Potassium 3.9 Chloride 100 Carbon Dioxide 27 BUN 11 Creatinine 0.65 Glucose 156 H Calcium 8.7
[2024-08-20] MEDS: hydroCHLOROthiazide 25 MG TAB PO SCH (08:19)
--- NOTE | 2024-08-20 09:33 | History & Physical Bridge Note ---
Date of Service August 20, 2024 History & Physical Bridge Note I have examined the patient, reviewed the History & Physical and in the interval since the performance of the History & Physical I have noted the following changes of clinical significance: no changes noted Revision hardware S1 on the right
[2024-08-20] MEDS: ONDANSETRON INJ 2 MG/ML 2 ML VIAL IV PRN (09:40)
[2024-08-20] MEDS ORDERED: fentaNYL citrate PF 100 MCG/2 ML VIAL ONE ×2 (09:47→11:36)
[2024-08-20] MEDS ORDERED: ONDANSETRON INJ 2 MG/ML 2 ML VIAL ONE (09:48)
[2024-08-20] MEDS ORDERED: ROCURONIUM BROMIDE 10 MG/ML 5 ML VIAL IV ONE ×2 (09:48→11:37)
[2024-08-20] MEDS ORDERED: LIDOCAINE 2% 2 ML VIAL/AMP(20MG/ML) INFIL ONE (09:48)
[2024-08-20] MEDS ORDERED: DEXAMETHASONE SOD INJ 4 MG/ML VIAL ONE (09:48)
[2024-08-20] MEDS ORDERED: PROPOFOL IV EMULSION 10 MG/ML 20 ML VIAL IV ONE (09:48)
[2024-08-20] MEDS: LACTATED RINGER'S 1,000 ML IV SCH (10:13)
[2024-08-20] MEDS ORDERED: ONDANSETRON INJ 2 MG/ML 2 ML VIAL IV PRN ×2 (10:53→13:59)
[2024-08-20] MEDS ORDERED: ePHEDrine sulfate 50 MG/ML AMP IV PRN (10:53)
[2024-08-20] MEDS ORDERED: PROMETHAZINE HCL 6.25 MG in SODIUM CHLORIDE 0.9% 50 ML IV PRN (10:53)
[2024-08-20] MEDS ORDERED: ATROPINE SULFATE 0.1 MG/ML 10ML SYR IV PRN (10:53)
--- NOTE | 2024-08-20 10:53 | Anesthesiology Consultation ---
Date of Service August 20, 2024 Assessment & Plan Chart Review Chart Review: Acceptable Risk for Surgery and Patient NOT seen in Pre Admission Testing Consults Requested none ASA ASA3 Proposed Anesthesia Anesthesia Type: General Risk / Benefits Reviewed With: PT / POA / Parent / Guardian, Accepts Plan and Informed Consent Obtained History Surgery Operation Date: 08/20/24 12:35 Proposed Procedures p Revision Lumbar Spine Hardware, Spinal Cord Monitoring - Christian Rizvi, Height/Weight Height: 5 ft 8 in Weight: 113.398 kg Allergies Allergy/AdvReac Type Severity Reaction Status Date / Time adhesive tape Allergy Intermediate Sores, Verified 08/16/24 23:26 "Ripped my skin right off" cholecalciferol (vitamin D3) Allergy Intermediate Itching Verified 08/16/24 23:26 [From Vitamin D3] ergocalciferol (vitamin D2) Allergy Intermediate Itching Verified 08/16/24 23:26 [From Vitamin D2] testosterone Allergy Intermediate Itching Verified 08/16/24 23:26 Penicillins Allergy Unknown HAPPENED Verified 08/16/24 23:26 A CHILD Medications Home Medications Medication Instructions Recorded Confirmed Last Taken aspirin 81 mg tablet,delayed 81 mg PO QAM 07/02/24 08/16/24 08/16/24 release atorvastatin 20 mg tablet 20 mg PO QAM 07/02/24 08/16/24 08/16/24 duloxetine 30 mg capsule,delayed 30 mg PO QAM 07/02/24 08/16/24 08/16/24 release glipizide 5 mg tablet 2.5 mg PO BID 07/02/24 08/16/24 08/16/24 08:00 hydrochlorothiazide 25 mg tablet 25 mg PO QAM 07/02/24 08/16/24 08/16/24 lisinopril 20 mg tablet 20 mg PO QAM 07/02/24 08/16/24 08/16/24 metformin 500 mg tablet 500 mg PO BID 07/02/24 08/16/24 08/16/24 08:00 omeprazole 20 mg capsule,delayed 20 mg PO QAM 07/02/24 08/16/24 08/16/24 release sertraline 50 mg tablet 50 mg PO QAM 07/02/24 08/16/24 08/16/24 oxycodone 5 mg tablet 5 mg PO Q6H PRN pain #30 tabs 08/10/24 08/16/24 Unknown cholecalciferol (vitamin D3) 1,250 50,000 unit PO WK #11 caps 08/13/24 08/16/24 Unknown mcg (50,000 unit) capsule Active Medications Generic Name Dose Route Start Last Admin Trade Name Freq PRN Reason Stop Dose Admin Acetaminophen 1,000 mg 08/17/24 12:04 08/19/24 19:58 Acetaminophen 500 Mg Tab PO 09/16/24 05:37 1,000 mg Q8H PRN Administration pain/fever Aspirin 81 mg 08/17/24 09:00 08/18/24 08:18 Aspirin 81 Mg Ectab PO 09/16/24 08:59 81 mg QAM KEO Administration Atorvastatin Calcium 20 mg 08/17/24 09:00 08/20/24 08:20 Atorvastatin 20 Mg Tab PO 09/16/24 08:59 20 mg QAM KEO Administration Duloxetine HCl 30 mg 08/17/24 09:00 08/20/24 08:20 Duloxetine Hcl 30 Mg Cap PO 09/16/24 08:59 30 mg QAM KEO Administration Hydrochlorothiazide 25 mg 08/17/24 09:00 08/20/24 08:19 Hydrochlorothiazide 25 Mg Tab PO 09/16/24 08:59 25 mg QAM KEO Administration Lactated Ringer's 1,000 mls @ 15 mls/hr 08/20/24 10:15 08/20/24 10:13 Lr IV 08/21/24 10:14 15 mls/hr .Q24H KEO Administration Lisinopril 20 mg 08/19/24 09:00 08/20/24 08:20 Lisinopril 20 Mg Tab PO 09/18/24 08:59 20 mg QAM KEO Administration Ondansetron HCl 4 mg 08/20/24 09:23 08/20/24 09:40 Ondansetron Inj 2 Mg/Ml 2 Ml Vial IV 09/19/24 09:22 4 mg Q6H PRN Administration Nausea And Vomiting Oseltamivir Phosphate 75 mg 08/17/24 09:00 08/20/24 08:20 Oseltamivir Phosphate 75 Mg Cap PO 08/22/24 08:59 75 mg BID KEO Administration Oxycodone HCl 5 - 10 mg 08/17/24 12:05 08/20/24 04:56 Oxycodone Hcl Ir 5 Mg Tab (Immediate Release) PO 08/31/24 05:37 10 mg Q6H PRN Administration Mod-Sev Pain (Scale 4-10) Pantoprazole Sodium 40 mg 08/17/24 09:00 08/20/24 08:20 Pantoprazole 40 Mg Tab PO 09/16/24 08:59 40 mg QAM KEO Administration Polyethylene Glycol 17 gm 08/17/24 05:38 08/18/24 08:24 Polyethylene (Miralax) 17 Gm Pack PO 09/16/24 05:37 17 gm DAILY PRN Administration Constipation Sertraline HCl 50 mg 08/17/24 09:00 08/20/24 08:20 Sertraline Hcl 50 Mg Tablet PO 09/16/24 08:59 50 mg QAM KEO Administration Vitamin D 1,250 mcg 08/19/24 09:00 08/19/24 09:36 Cholecalciferol 125 Mcg (5,000 Units) Tab PO 09/18/24 08:59 1,250 mcg Th@0900 KEO Administration NPO Date Last Intake of Fluids: 08/19/24 Time Last Intake of Fluids: 23:00 Date Last Intake of Solids: 08/19/24 Time Last Intake of Solids: 23:00 Past Medical History Medical History Sleep apnea CPAP-compliant History of prostate cancer (~2007) surgery only - no xrt/chemo Acid reflux controlled, stable per pt Hx of Lyme disease (~2019) x2 completed antibiotic tx-denies residual issues Hypertension controlled, stable per pt Lung disease pt unsure of type Diabetes mellitus, type 2 NIDDM Adverse effect of anesthesia awareness under anesthesia Exercise / Class Metabolic Activity II 4-5 Yardwork/Stairs/Walk up hill Past Surgical History Surgical History History of surgery more than 20 yrs ago- "gland near prostate" pt cannot recall additional details Hx of colonoscopy History of bilateral cataract extraction History of nasal surgery deviated septum History of tonsillectomy History of hemorrhoidectomy History of hernia repair History of total left knee replacement History of prostatectomy Past Anesthesia History No Hx of Anesthesia Complications and No Family Hx of Anesthesia Complications History of PONV No Hx of PONV and No Hx of Motion Sickness Social History Smoking Status: Former smoker Do You Dip or Chew Tobacco: No Hx Alcohol Use: Yes (no drink in 2 weeks, previously would drink 5-6 beers a day) Alcohol type: beer alcohol intake frequency: a few times a month Hx Substance Use: No substance use type: does not use Physical Exam Vital Signs Last Vital Signs Temp 36.7 C 08/20/24 10:01 Pulse 97 H 08/20/24 10:01 Resp 20 08/20/24 10:01 BP 124/92 08/20/24 10:01 Pulse Ox 156 H 08/20/24 10:01 O2 Del Method Room Air 08/20/24 10:01 O2 Flow Rate 3 08/17/24 03:00 ENMT Mouth: no dentition abnormality Thyromental Distance: > or= 3.5 Finger Breadths Mallampati Class: II Neck normal visual inspection Respiratory normal respiratory effort Auscultation: lungs clear to auscultation bilaterally Cardiovascular Rate/Rhythm: regular rate and regular rhythm Psychiatric Orientation: alert Testing Laboratory Results 08/20/24 06:14 08/20/24 06:14 Hemoglobin A1c 6.5 % (4.5-5.6) H 08/17/24 06:48 Urine Color Yellow 08/17/24 01:04 Urine Appearance Clear (Clear) 08/17/24 01:04 Urine pH 6.0 (4.5-7.5) 08/17/24 01:04 Ur Specific Hammond 1.018 (1.000-1.030) 08/17/24 01:04 Urine Protein Negative (Negative) 08/17/24 01:04 Urine Glucose (UA) Negative (Negative) 08/17/24 01:04 Urine Ketones Negative (Negative) 08/17/24 01:04 Urine Nitrite Negative (Negative) 08/17/24 01:04 Ur Leukocyte Esterase Negative (Negative) 08/17/24 01:04 08/20/24 08/20/24 10:28 06:30 POC Glucose 175 H 159 H
[2024-08-20] MEDS: CLINDAMYCIN/D5W 600 MG/50 ML BAG IV ONE (10:54)
[2024-08-20] MEDS ORDERED: SUGAMMADEX SODIUM 200 MG/2 ML VIAL IV ONE (11:14)
[2024-08-20] MEDS: BUPIVACAINE/EPINEPHRINE 0.25% 1:200,000 30 ML VIAL ONE (11:32)
[2024-08-20] MEDS: GENTAMICIN SULFATE 40 MG/ML 2 ML VIAL ONE (11:33)
[2024-08-20] MEDS: ceFAZolin 330 MG/ML 1 GM VIAL ONE (11:33)
[2024-08-20] MEDS: VANCOMYCIN HCL 1000MG/20ML VIAL ONE (11:33)
[2024-08-20] MEDS ORDERED: PHENYLEPHRINE 100MCG/ML 5ML SYR ONE (11:34)
[2024-08-20] MEDS ORDERED: KETOROLAC TROMETHAMINE 15 MG/ML VIAL IV PRN (11:52)
--- NOTE | 2024-08-20 11:57 | Operative Report ---
Post Operative Report Pre & Post Diagnosis Operation Date: 08/20/24 12:35 Pre-Op Diagnosis: #1 right sciatica #2 failure of hardware S1 on the right. Post-Op Diagnosis: Same with lumbar epidural hematoma I identified the patient and participated in the time-out.: Yes Procedure Operation Date: 08/20/24 12:35 Actual Procedures #1 Decompression with bilateral foraminotomies L5-S1. #2 removal of instrumentation S1 pedicle screw and scarlet on the right with replacement pedicle screw. Surgeon Christian Rizvi, DO Heavy Duty [employer] Chadwick Healy Estimated Blood Loss 50 Findings Consistent with Post-Op Diagnosis Specimens None Indications Patient presents with worsening back and leg pain with with imaging demonstrating failure of hardware S1 pedicle screw on the right. Subsequent is here for revision. Description of Procedure Patient is met with identified informed consent obtained. Patient was then taken to the operative suite underwent ablation placed in a prone position on the [place] table top with Zion frame. All bony promises well-padded eyes inspected to ensure no external precipice upon them. At this point the third lumbar spine is prepped and draped normal sterile fashion. Utilizing the previous incision site sharp dissection was performed down to and exposing the fascia. The fascia was released and significant lumbar epidural hematoma identified. Several liters of antibiotic solution were then irrigated throughout the incision. I then identified the loose S1 pedicle screw on the right. I did have to loosen the end caps to manipulate the scarlet overlying the S1 pedicle screw. The pedicle screw was then removed and replaced with a second bigger screw scarlet reinserted and I compressed the S1 level bilaterally. I then performed a revision foraminotomies L5-S1 bilaterally to ensure no neural encroachment. Approximate 10 cc of Stimulan beads impregnated with vancomycin gentamicin then placed throughout the incision. 2 IVONE drains 15 round in size were then inserted bilaterally. Incision was then closed with 1 Vicryl the fascia 2-0 Vicryl subcutaneously and 4 Monocryl for final skin closure. Steri- Strips sterile dressing placed. Patient waken taken to PACU in stable condition. Please note spinal cord monitoring visualized at the procedure no changes noted. Chadwick Lorenzo was present at the entire procedure and brought the patient positioning complex portion of the surgery and final skin closure. I attest to the content of the Intraoperative Record and any orders documented therein. Any exceptions are noted below.
[2024-08-20] MEDS: fentaNYL citrate PF 100 MCG/2 ML VIAL IV PRN (12:38)
[2024-08-20] MEDS: HYDROmorphone INJ 2 MG/ML SYR/VIAL IV PRN (13:02)
--- NOTE | 2024-08-20 13:09 | Fluoroscopy Report ---
FL lumbar spine 2-3V CLINICAL HISTORY: REVISION LUMBAR SPINE HARDWARE COMPARISON STUDY: 08/18/2024 FLUOROSCOPY TIME: 5 seconds FLUOROSCOPY IMAGES: 3 EXPOSURE DOSE: 4 mGy FINDINGS: Fluoroscopy was provided for revision of spinal hardware. IMPRESSION: Intraoperative fluoroscopy. ACT 112: Negative or not required by law. Electronically signed by: Santo Chaparro M.D. 08/20/2024 1:08 PM
--- NOTE | 2024-08-20 13:25 | Anesthesiology Progress Note ---
Date of Service August 20, 2024 Anesthesia Post Procedure Vital Signs Vital Signs: Temp Pulse Pulse Pulse Resp BP BP 08/20/24 13:20 98 H 103/68 08/20/24 13:10 99 H 12 130/66 08/20/24 13:00 97 H 12 118/73 08/20/24 12:50 103 H 12 118/91 08/20/24 12:40 108 H 18 128/82 08/20/24 12:31 36.0 C L 100 H 16 129/88 08/20/24 10:01 36.7 C 97 H 20 124/92 08/20/24 08:00 36.7 C 84 18 160/93 H 08/19/24 22:10 93 H 12 08/19/24 19:58 36.6 C 95 H 18 127/84 08/19/24 19:50 08/19/24 14:48 36.8 C 91 H 18 155/89 H Pulse Ox O2 Del Method O2 Flow Rate 08/20/24 13:20 98 Nasal Cannula 2 08/20/24 13:10 95 Room Air 08/20/24 13:00 92 Room Air 08/20/24 12:50 99 Oxymask 5 08/20/24 12:40 99 Oxymask 5 08/20/24 12:31 98 Oxymask 5 08/20/24 10:01 156 H Room Air 08/20/24 08:00 95 Room Air 08/19/24 22:10 94 08/19/24 19:58 96 Room Air 08/19/24 19:50 Room Air, CPAP 08/19/24 14:48 97 Room Air Pain Intensity Back: Pain Intensity: 4 Right Leg: Pain Intensity: 9 Transfer of Care Handoff Completed per policy Notes Mental Status: alert / awake / arousable Patient Amnestic to Procedure: Yes Nausea / Vomiting: adequately controlled Pain: adequately controlled Airway Patency, RR, SpO2: stable & adequate BP & HR: stable & adequate Hydration State: stable & adequate Anesthetic Complications: no major complications apparent
[2024-08-20] MEDS ORDERED: ALUMINUM/MAGNESIUM SUSP 30 ML UDC PO PRN (13:59)
[2024-08-20] MEDS ORDERED: MAGNESIUM HYDROXIDE SUSP 30 ML UDC PO PRN (13:59)
[2024-08-20] MEDS ORDERED: PROMETHAZINE 12.5 MG/50.5 ML BAG IV PRN (13:59)
[2024-08-20] MEDS ORDERED: diphenhydrAMINE Capsule 25 MG CAP PO PRN (13:59)
[2024-08-20] MEDS ORDERED: hydrOXYzine HCl 25 MG TAB PO PRN (13:59)
[2024-08-20] MEDS ORDERED: NALOXONE HCL 0.4 MG/1 ML VIAL/CARP IV PRN (13:59)
[2024-08-20] MEDS ORDERED: FAMOTIDINE 20 MG TAB PO PRN (13:59)
[2024-08-20] MEDS ORDERED: METOCLOPRAMIDE HCL INJ 5 MG/ML 2 ML VIAL IV PRN (13:59)
[2024-08-20] MEDS ORDERED: DO NOT ADMINISTER FLU VACCINE PRN (13:59)
[2024-08-20] MEDS ORDERED: bisacodyL 10 MG SUPP PR PRN (13:59)
[2024-08-20] MEDS ORDERED: SOD PHOSPHATE/SOD BIPHOSPHATE ENEMA 132 ML BTL PR PRN (13:59)
[2024-08-20] MEDS ORDERED: LORazepam 2 MG/1 ML VIAL IV PRN (13:59)
[2024-08-20] MEDS ORDERED: ONDANSETRON 4 MG OD TAB PO PRN (13:59)
[2024-08-20] MEDS ORDERED: DO NOT ADMINISTER PNEUMOCOCCAL VACCINE PRN (13:59)
[2024-08-20] MEDS ORDERED: HYDROmorphone INJ 0.5 MG/0.5 ML SYR IV PRN (13:59)
[2024-08-20] MEDS: FLOSEAL HEMOSTATIC MATRIX 10ML TOP ONE (14:01)
[2024-08-20] MEDS: CLINDAMYCIN 600 MG/D5W 50 ML BAG IV ONE (14:01)
[2024-08-20] MEDS: INSULIN ASPART PER UNIT CHARGE SC SCH ×2 (14:22→17:16)
[2024-08-20] MEDS: Nursing to Pharmacy Communication SCH (14:42)
[2024-08-20] MEDS: ACETAMINOPHEN 1,000 MG/100 ML VIAL IV PRN (15:06)
[2024-08-20] MEDS: SODIUM CHLORIDE 0.9% 1,000 ML IV SCH (15:40)
[2024-08-20] MEDS: CLINDAMYCIN/D5W 600 MG/50 ML BAG IV SCH (17:22)
[2024-08-20] MEDS: DOCUSATE SODIUM/SENNA 50/8.6MG TAB PO SCH (20:24)
[2024-08-20] MEDS: oxyCODONE HCL IR 5 MG TAB (IMMEDIATE RELEASE) PO PRN (20:28)
[2024-08-20] MEDS: HYDROmorphone INJ 1 MG/ML SYRINGE IV PRN (23:55)
[2024-08-21] MEDS: POLYETHYLENE (MIRALAX) 17 GM PACK PO SCH (06:03)
[2024-08-21] MEDS: traMADol HCL 50 MG TABLET PO PRN (06:06)
[2024-08-21 06:29] LABS: Basophils # (auto) 0.02 K/uL (0.00-0.20); Basophils % (auto) 0.2 %; Eosinophils # (auto) 0.11 K/uL (0.00-0.50); Hematocrit (blood only) 27.9 % (42.0-52.0); Hemoglobin 9.1 g/dl (14.0-18.0); Immature Granulocytes # (auto) 0.17 K/uL (0.01-0.20); Immature Granulocytes % (auto) 1.5 %; Lymphocytes % (auto) 17.1 %; Mean Corpuscular Hemoglobin 29.4 pg (25.0-34.0); Mean Corpuscular Hgb Conc 32.6 g/dL (32.0-36.0); Mean Platelet Volume 9.1 fL (9.4-12.4); Monocytes # (auto) 0.87 K/uL (0.11-0.59); Monocytes % (auto) 7.8 %; Neutrophils # (auto) 8.04 K/uL (1.40-6.50); Neutrophils % (auto) 72.4 %; Platelet Count 266 K/uL (130-400); RDW Coefficient of Variation 13.5 % (11.5-14.5); RDW Standard Deviation 44.4 fL (36.4-46.3); White Blood Count 11.11 K/ul (4.8-10.8)
[2024-08-21 07:08] LABS: BUN Creatinine Ratio 21.7 (10-20); Calcium 8.3 mg/dl (8.6-10.3); Creatinine Clr Calc Pharmacy 86.1 ml/min; Potassium 4.2 mmol/L (3.5-5.1)
--- NOTE | 2024-08-21 07:57 | Orthopedic Progress Note ---
Date of Service August 21, 2024 Assessment & Plan (1) Right sided sciatica: Plan: Here is postoperative day 1 status post revision decompression fusion L5-S1 with replacement of S1 pedicle screws and rods on the right. Will start physical therapy today. Maintain IVONE drains. DVT prophylaxis is in the form of teds and SCDs. Continue with aggressive bowel regimen. Would recommend rehab upon discharge for this patient Admission and Anticipated Discharge Date Admission Date: August 17, 2024 Michelet Hunt is postoperative day 1 status post revision decompression L5-S1 with replacement of S1 pedicle screws and rods on the right. Pain is controlled. Legs feel better. H&H are 9.1 and 27.9 respectively this morning. IVONE drain out put #1 last shift was 50 cc. IVONE drain #2 output last shift was 30 cc. Review of Systems Review of Systems: All systems reviewed & are unremarkable except as noted in HPI & below Physical Exam Physical Exam: He is laying in bed in no acute distress Alert and oriented x 3 Strength intact bilateral lower extremities Lumbar dressing is clean dry and intact with functioning IVONE drains x 2 Results & Data Vital Signs (Past 12 Hours) Vital Signs Temp Pulse Resp BP BP Pulse Ox O2 Del Method 08/21/24 07:49 36.5 C 100 H 16 113/78 97 Room Air 08/21/24 03:37 37.3 C 92 H 18 119/76 95 Room Air 08/20/24 23:43 36.3 C L 96 H 18 130/81 95 Room Air 08/20/24 20:06 37.0 C 94 H 16 107/72 94 Room Air
--- NOTE | 2024-08-21 08:49 | Hospitalist Progress Note ---
Date of Service August 21, 2024 Assessment & Plan (1) Weakness: Plan: This is a 74-year-old male with past medical history significant for hyperlipidemia, chronic rhinitis, obesity, sarcoidosis, depression, history of hyperglycemia, history of tobacco use, sleep apnea presents with falls in setting of recent lumbar surgery and found to have Flu A on admission. Decompression with bilateral foraminotomies L5-S1. Fall Generalized weakness POD #1 s/p removal of instrumentation S1 pedicle screw and scarlet on the right with replacement pedicle screw. Post op, hypothermic 34.8; warm blankets applied - resolved Postop hypotension - off IVF;- HOLD lisionpril and HCTZ since 08/19. IV Tylenol for now; avoid narcotic while BP low, no NSAIDs PT/OT, incentive spirometry education provided at bedside [facility] referrals placed on 08/20, will likely remain here throughout the weekend Bowel regimen ordered Acute Post Op Blood Loss Anemia Recent acute blood loss anemia 2/2 surgery requiring 2u prbc, discharged home on 08/13/24, Hgb 9.1 - likely acute blood loss anemia. No transfusion today Daily CBC ; Anemia panel normal Flu A Asymptomatic; incidental finding on admission. Diminished breath sounds on exam. Cont IS May be contributing to his weakness and falls Empirically started on Tamiflu; day [address] Obstructive sleep apnea CPAP nightly; tolerating well Vitamin D deficiency: Patient reports that he was on high-dose of vitamin D in the past and he developed pruritus (listed as an allergy); dose reduction prior to hospitalization and he has tolerated the first dose continue weekly dosing of vitamin D3. Diabetes II Holding home PO medications Sliding scale ISS A1C 6.5 on 08/17 HTN HCTZ and lisinopril on HOLD GERD Continue omeprazole Depression takes duloxetine and Zoloft; continue Abnormal CXR Initial CXR with ? soft tissue bulge and edge along the medial aspect of the right lung base which is not clearly present on the prior study. Follow up chest x-ray PA lateral view today with mild atelectasis or scarring in the lung bases. Recommend follow-up as an outpatient Hyperlipidemia On statin; continue DVT prophylaxis: SCDs for now Code: FULL Disposition: admitted to med/surg to ortho spine service. Thank you for involving us in the care of Mr. Bravo. Please do not hesitate to call with questions or concerns. At this time medicine service will follow along in consultation. I spent a total of 54 minutes coordinating, documenting, and providing care for this patient excluding time spent in the performance of separately billed services or time spent by another provider/QHP. Admission and Anticipated Discharge Date Admission Date: August 17, 2024 Supervising Physician Co-Signing Physician Notes Patient is seen and examined at bedside. States having back pain at surgical site. No other complaints today. Hypotension resolved. Follow-up physical exam mostly unchanged. Patient is currently being managed for pain back pain likely secondary to loosening of hardware, generalized weakness, flu A infection. Patient had replacement of hardware by Dr. Rizvi on 08/21/2024. Monitor blood pressure closely. Likely resume antihypertensives tomorrow. IV fluids as needed. Pain control, PT OT, fall precautions. DVT prophylaxis as per primary team. Continue Tamiflu for flu A infection. Postoperative acute blood loss anemia. No indication for blood transfusion currently. Continue insulin while hospitalized for management of diabetes mellitus. Incentive spirometry to help with atelectasis. I have reviewed the advanced practitioner's documentation on the date of service referred in note and agree with plan. Patient's care is coordinated with Nicole Orr PA-C. Please refer to the documentation above for details of patient's presentation and for discussion of other issues. I spent a total [id number] coordinating, documenting, and providing care for this patient excluding time spent in the performance of separately billed services or time spent by another provider/QHP. Subjective Pt was seen and examined this morning POD #1 and is doing well. Ate full liquid diet, asking for real food for lunch. Reports back pain is moderate today and has been repositioned with help of nursing this morning to aid in relief. Had small BM yesterday after surgery, not a normal one though at this time. He is passing flatus. Plans to walk with PT/OT but has concerns about pain and worried that he does not want to fall. Pt planning on rehab after acute hospital stay. Encouraged use of incentive spirometer at bedside and educated on how to use the tool. 10 point ROS reviewed and otherwise negative. Physical Exam Physical Exam: General: awake, alert, no apparent distress, morbidly obese white male Head: Normocephalic, atraumatic ENT: PERRL, EOMI, no pharyngeal exudate, mucous membranes moist Chest: Diminished breath sounds throughout, + faint crackles at bases, on room air, no wheeze or rales Cardiac: Regular rate and rhythm, no murmur, no JVD, normal peripheral pulses, good capillary refill Abdominal: NABS x 4 quadrants, soft, nondistended, nontender to palpation, no rebound or guarding Back: IVONE drain R draining serosanginous fluid, IVONE drain left minimal outs. Dressing C/D/I. Extremities: Normal inspection, no peripheral edema or erythema, calfs nontender to palpation Psych: Depressed mood and affect Neuro: AAO x 3, strength intact bilaterally and rated 5/5, no motor deficits, speech is clear, no peripheral sensory deficits Results & Data Results & Data Vital Signs (Past 12 Hours) Vital Signs Temp Pulse Resp BP BP Pulse Ox O2 Del Method 08/21/24 07:49 36.5 C 100 H 16 113/78 97 Room Air 08/21/24 03:37 37.3 C 92 H 18 119/76 95 Room Air 08/20/24 23:43 36.3 C L 96 H 18 130/81 95 Room Air Laboratory Results 08/21/24 08/21/24 08/20/24 07:44 05:56 20:12 WBC 11.11 H RBC 3.10 L Hgb 9.1 L Hct 27.9 L MCV 90.0 MCH 29.4 MCHC 32.6 RDW Std Deviation 44.4 RDW Coeff of Ebony 13.5 Plt Count 266 MPV 9.1 L Immature Gran % (Auto) 1.5 Neut % (Auto) 72.4 Lymph % (Auto) 17.1 Marion % (Auto) 7.8 Eos % (Auto) 1.0 Baso % (Auto) 0.2 Neut # (Auto) 8.04 H Lymph # (Auto) 1.90 Marion # (Auto) 0.87 H Eos # (Auto) 0.11 Baso # (Auto) 0.02 Immature Gran # (Auto) 0.17 Sodium 134 L Potassium 4.2 Chloride 101 Carbon Dioxide 28 Anion Gap 5 BUN 20 Creatinine 0.92 Est Cr Clr Drug Dosing 86.1 eGFR 87.29 BUN/Creatinine Ratio 21.7 H Glucose 162 H POC Glucose 162 H 251 H Calcium 8.3 L 08/20/24 08/20/24 08/20/24 14:41 12:47 10:28 WBC RBC Hgb Hct MCV MCH MCHC RDW Std Deviation RDW Coeff of Ebony Plt Count MPV Immature Gran % (Auto) Neut % (Auto) Lymph % (Auto) Marion % (Auto) Eos % (Auto) Baso % (Auto) Neut # (Auto) Lymph # (Auto) Marion # (Auto) Eos # (Auto) Baso # (Auto) Immature Gran # (Auto) Sodium Potassium Chloride Carbon Dioxide Anion Gap BUN Creatinine Est Cr Clr Drug Dosing eGFR BUN/Creatinine Ratio Glucose POC Glucose 240 H 223 H 175 H Calcium
[2024-08-21] MEDS: LORazepam 0.5 MG TAB PO PRN (20:23)
[2024-08-22 06:18] LABS: Hematocrit (blood only) 27.4 % (42.0-52.0); Hemoglobin 9.1 g/dl (14.0-18.0); Mean Corpuscular Hemoglobin 29.4 pg (25.0-34.0); Mean Corpuscular Hgb Conc 33.2 g/dL (32.0-36.0); Mean Corpuscular Volume 88.7 fL (80.0-100.0); Mean Platelet Volume 9.2 fL (9.4-12.4); Platelet Count 261 K/uL (130-400); RDW Coefficient of Variation 13.4 % (11.5-14.5); RDW Standard Deviation 43.4 fL (36.4-46.3); Red Blood Count 3.09 M/uL (4.70-6.10); White Blood Count 11.31 K/ul (4.8-10.8)
[2024-08-22 06:39] LABS: BUN Creatinine Ratio 23.2 (10-20); Calcium 8.7 mg/dl (8.6-10.3); Creatinine Clr Calc Pharmacy 114.8 ml/min; Potassium 4.4 mmol/L (3.5-5.1)
--- NOTE | 2024-08-22 08:15 | Orthopedic Progress Note ---
Date of Service August 22, 2024 Assessment & Plan (1) Right sided sciatica: Plan: nany is postoperative day 2 status post revision decompression L5-S1 with replacement of S1 screw and rods. Will continue with physical therapy today. Maintain IVONE drains. I am and add Neurontin to see if this can help with some of his right leg pain. DVT prophylaxis is in the form teds and SCDs. He will be discharged to [facility]. Hopefully but this can be arranged early this upcoming week. Admission and Anticipated Discharge Date Admission Date: August 17, 2024 Subjective nany is postoperative day 2 status post revision L5-S1 and replacement of S1 screw. He has complaints of right leg pain today. IVONE drain output #1 is 30 cc IVONE drain output #2 is 30 cc. H&H is morning are 9.1 and 27.4 respectively. Yesterday ambulating 5 feet in physical therapy. He is comfortable sitting in recliner and pain-free Review of Systems Review of Systems: All systems reviewed & are unremarkable except as noted in HPI & below Physical Exam Physical Exam: He sitting in recliner eating breakfast in no acute distress distress Alert and oriented x 3 Strength is 5/5 bilateral lower extremities Dressing is clean dry intact with functioning IVONE drains x 2 Results & Data Vital Signs (Past 12 Hours) Vital Signs Temp Pulse Resp BP Pulse Ox O2 Del Method 08/22/24 07:01 36.5 C 96 H 18 156/90 H 94 Room Air
[2024-08-22] MEDS: GABAPENTIN 100 MG CAP PO SCH (08:53)
--- NOTE | 2024-08-22 10:15 | Hospitalist Progress Note ---
Date of Service August 22, 2024 Assessment & Plan (1) Weakness: Plan: This is a 74-year-old male with past medical history significant for hyperlipidemia, chronic rhinitis, obesity, sarcoidosis, depression, history of hyperglycemia, history of tobacco use, sleep apnea presents with falls in setting of recent lumbar surgery and found to have Flu A on admission. Decompression with bilateral foraminotomies L5-S1. Fall Generalized weakness POD #2 s/p removal of instrumentation S1 pedicle screw and scarlet on the right with replacement pedicle screw. Post op, hypothermic 34.8; warm blankets applied - resolved Postop hypotension - off IVF;- Resume lisinopril and HCTZ with BP elevation noted today and not pain induced. IV Tylenol ok; appears to have increased somnolence with oxycodone, would use only 5 mg for severe pain. Also hold afternoon dose of gabapentin today PT/OT [facility] referrals placed on 08/20, will likely remain here throughout the weekend Bowel regimen ordered, large BM today 08/22 Acute Post Op Blood Loss Anemia Recent acute blood loss anemia 2/2 surgery requiring 2u prbc, discharged home on 08/13/24, Hgb 9.1 - likely acute blood loss anemia. No transfusion today Daily CBC ; Anemia panel normal Flu A Asymptomatic; incidental finding on admission. 08/22 incentive spirometry education provided at bedside - breath sounds much improved today with use of IS, improving with ambulation May be contributing to his weakness and falls Empirically started on Tamiflu; day 5 and finishes today 08/22. Droplet precautions in place Obstructive sleep apnea CPAP nightly; tolerating well Vitamin D deficiency: Patient reports that he was on high-dose of vitamin D in the past and he developed pruritus (listed as an allergy); dose reduction prior to hospitalization and he has tolerated the first dose continue weekly dosing of vitamin D3. Diabetes II Holding home PO medications Sliding scale ISS A1C 6.5 on 08/17 HTN Resume lisinopril and HCTZ. Allow lisinopril this afternoon. GERD Continue omeprazole Depression takes duloxetine and Zoloft; continue Abnormal CXR Initial CXR with ? soft tissue bulge and edge along the medial aspect of the right lung base which is not clearly present on the prior study. Follow up chest x-ray PA lateral view today with mild atelectasis or scarring in the lung bases. Recommend follow-up as an outpatient Hyperlipidemia On statin; continue DVT prophylaxis: SCDs for now Code: FULL Disposition: admitted to med/surg to ortho spine service. Thank you for involving us in the care of Mr. Bravo. Please do not hesitate to call with questions or concerns. At this time medicine service will follow along in consultation. I spent a total of 45 minutes coordinating, documenting, and providing care for this patient excluding time spent in the performance of separately billed services or time spent by another provider/QHP. Admission and Anticipated Discharge Date Admission Date: August 17, 2024 Supervising Physician Co-Signing Physician Notes Patient is seen and examined at bedside. Back pain is slightly improved. Had bowel movement today. No new complaints. Blood pressure much improved as well. Ambulated in hallway earlier. Patient is currently being managed for pain back pain likely secondary to loosening of hardware, generalized weakness, flu A infection. Patient had replacement of hardware by Dr. Rizvi on 08/21/2024. Monitor blood pressure closely. Resume home antihypertensives today. Monitor blood pressure. Pain control, PT OT, fall precautions. DVT prophylaxis as per primary team. Continue Tamiflu for flu A infection. Postoperative acute blood loss anemia. No indication for blood transfusion currently. Continue insulin while hospitalized for management of diabetes mellitus. Incentive spirometry to help with atelectasis. I have reviewed the advanced practitioner's documentation on the date of service referred in note and agree with plan. Patient's care is coordinated with Nicole Orr PA-C. Please refer to the documentation above for details of patient's presentation and for discussion of other issues. I spent a total [id number] coordinating, documenting, and providing care for this patient excluding time spent in the performance of separately billed services or time spent by another provider/QHP. Subjective Pt seen and examined this morning. Sitting up in bedside chair. Reports back is sore, R ankle feels like there is a " rubber band around it", but has Jagdeep stocking cut and pulled over his ankle and not his foot which is likely contributing. Had large BM today. No issues with urination. Walking around the room. Denies other acute complaints. Review of Systems Review of Systems: 10 point ROS reviewed and negative. Physical Exam Physical Exam: General: awake, alert, no apparent distress, morbidly obese white male Head: Normocephalic, atraumatic ENT: PERRL, EOMI, no pharyngeal exudate, mucous membranes moist Chest: breath sounds improved today, no crackles, he is using incentive spirometer, on room air, no wheeze or rales Cardiac: Regular rate and rhythm, no murmur, no JVD, normal peripheral pulses, good capillary refill Abdominal: NABS x 4 quadrants, soft, nondistended, nontender to palpation, no rebound or guarding Back: IVONE drain R drain, IVONE drain left, recently emptied by nursing, Dressing C/D/I, external back nerve stimulator applied. Extremities: Normal inspection, no peripheral edema or erythema, calfs nontender to palpation Psych: Depressed mood and affect Neuro: AAO x 3, strength intact bilaterally and rated 5/5, no motor deficits, speech is clear, no peripheral sensory deficits Results & Data Results & Data Vital Signs (Past 12 Hours) Vital Signs Temp Pulse Resp BP Pulse Ox O2 Del Method 08/22/24 07:01 36.5 C 96 H 18 156/90 H 94 Room Air Laboratory Results 08/22/24 08/22/24 08/21/24 07:22 05:42 20:03 WBC 11.31 H RBC 3.09 L Hgb 9.1 L Hct 27.4 L MCV 88.7 MCH 29.4 MCHC 33.2 RDW Std Deviation 43.4 RDW Coeff of Ebony 13.4 Plt Count 261 MPV 9.2 L Sodium 131 L Potassium 4.4 Chloride 97 L Carbon Dioxide 27 Anion Gap 7 BUN 16 Creatinine 0.69 Est Cr Clr Drug Dosing 114.8 eGFR 97.11 BUN/Creatinine Ratio 23.2 H Glucose 171 H POC Glucose 174 H 210 H Calcium 8.7 08/21/24 08/21/24 16:34 11:26 WBC RBC Hgb Hct MCV MCH MCHC RDW Std Deviation RDW Coeff of Ebony Plt Count MPV Sodium Potassium Chloride Carbon Dioxide Anion Gap BUN Creatinine Est Cr Clr Drug Dosing eGFR BUN/Creatinine Ratio Glucose POC Glucose 208 H 180 H Calcium
[2024-08-22] MEDS ORDERED: oxyCODONE HCL IR 5 MG TAB (IMMEDIATE RELEASE) PO PRN (12:56)
[2024-08-22] MEDS: ACETAMINOPHEN 500 MG TAB PO PRN (20:28)
[2024-08-23 06:11] LABS: Hematocrit (blood only) 25.4 % (42.0-52.0); Hemoglobin 8.7 g/dl (14.0-18.0)
[2024-08-23 06:36] LABS: BUN Creatinine Ratio 20.6 (10-20); Calcium 8.9 mg/dl (8.6-10.3); Creatinine Clr Calc Pharmacy 116.5 ml/min
--- NOTE | 2024-08-23 08:17 | Hospitalist Progress Note ---
Date of Service August 23, 2024 Assessment & Plan (1) Weakness: Plan: This is a 74-year-old male with past medical history significant for hyperlipidemia, chronic rhinitis, obesity, sarcoidosis, depression, history of hyperglycemia, history of tobacco use, sleep apnea presents with falls in setting of recent lumbar surgery and found to have Flu A on admission. Decompression with bilateral foraminotomies L5-S1. Fall Generalized weakness POD #2 s/p removal of instrumentation S1 pedicle screw and scarlet on the right with replacement pedicle screw. Post op, hypothermic 34.8; warm blankets applied - resolved Postop hypotension - off IVF;- Resume lisinopril and HCTZ with BP elevation noted today and not pain induced. IV Tylenol ok; appears to have increased somnolence with oxycodone, would use only 5 mg for severe pain. Also hold afternoon dose of gabapentin today PT/OT [facility] referrals placed on 08/20, will likely remain here throughout the weekend Bowel regimen ordered, large BM today 08/22 Acute Post Op Blood Loss Anemia Recent acute blood loss anemia 2/2 surgery requiring 2u prbc, discharged home on 08/13/24, Hgb 9.1 - likely acute blood loss anemia. No transfusion today Daily CBC ; Anemia panel normal Flu A Asymptomatic; incidental finding on admission. 08/22 incentive spirometry education provided at bedside - breath sounds much improved today with use of IS, improving with ambulation May be contributing to his weakness and falls Empirically started on Tamiflu; day 5 and finishes today 08/22. Droplet precautions in place Obstructive sleep apnea CPAP nightly; tolerating well Vitamin D deficiency: Patient reports that he was on high-dose of vitamin D in the past and he developed pruritus (listed as an allergy); dose reduction prior to hospitalization and he has tolerated the first dose continue weekly dosing of vitamin D3. Diabetes II Holding home PO medications Sliding scale ISS A1C 6.5 on 08/17 HTN Resume lisinopril and HCTZ. Allow lisinopril this afternoon. GERD Continue omeprazole Depression takes duloxetine and Zoloft; continue Abnormal CXR Initial CXR with ? soft tissue bulge and edge along the medial aspect of the right lung base which is not clearly present on the prior study. Follow up chest x-ray PA lateral view today with mild atelectasis or scarring in the lung bases. Recommend follow-up as an outpatient Hyperlipidemia On statin; continue DVT prophylaxis: SCDs for now Code: FULL Disposition: admitted to med/surg to ortho spine service. Thank you for involving us in the care of Mr. Bravo. Please do not hesitate to call with questions or concerns. At this time medicine service will follow along in consultation. I spent a total of 45 minutes coordinating, documenting, and providing care for this patient excluding time spent in the performance of separately billed services or time spent by another provider/QHP. Admission and Anticipated Discharge Date Admission Date: August 17, 2024 Results & Data Results & Data Vital Signs (Past 12 Hours) Vital Signs Temp Pulse Resp BP Pulse Ox O2 Del Method 08/23/24 07:50 36.4 C L 97 H 16 152/92 H 95 Room Air 08/22/24 20:28 Room Air, CPAP
[2024-08-23] MEDS: lisinopril 20 MG TAB PO SCH (08:22)
--- NOTE | 2024-08-23 10:04 | XRay Report ---
XR lumbar spine 2-3V CLINICAL HISTORY: post op films standing if possible COMPARISON STUDY: 08/18/2024 FINDINGS: There is stable posterior metallic fusion from T12 through S1. No hardware complication see n. No fracture. Stable anterolisthesis of L5 on S1. There are interval electronic leads overlying the upper and right abdomen. IMPRESSION: No acute findings. ACT 112: Negative or not required by law. Electronically signed by: Santo Chaparro M.D. 08/23/2024 10:03 AM
--- NOTE | 2024-08-23 14:42 | Discharge Summary ---
Date of Service August 23, 2024 Admission HPI Per Admitting Provider 74-year-old male with past medical history significant for hyperlipidemia, chronic rhinitis, obesity, sarcoidosis, depression, history of hyperglycemia, history of tobacco use, sleep apnea presents with falls. Patient had back surgery recently and was discharged on last Friday. He lives with his At home he was having a lot of back pain and feeling weakness in the legs and falling. Today when he fell he could not get up. And patient came to the ER. Denies any fevers. Earlier had runny nose that got resolved. Has some cough. Denies any fevers. Appetite is down. Denies chest pain or shortness of breath. No abdominal pain. Normal bowel and bladder movements. Hemodynamics are okay. In the ER he was found to have flu positive. Past medical history. As mentioned above Past surgical history. Anal fistula surgery. Colonoscopy. Nasal endoscopy. Tonsillectomy. Bilateral cataracts. Umbilical hernia repair. Social history. .Quit smoking 1976. Smoked 1 pack a day for 15 years. Alcohol yes. No drug use. Family history. Son has allergies. Principal Diagnosis Lumbar spondylosis with radiculopathy Discharge Data Allergies Allergy/AdvReac Type Severity Reaction Status Date / Time adhesive tape Allergy Intermediate Sores, Verified 08/16/24 23:26 "Ripped my skin right off" cholecalciferol (vitamin D3) Allergy Intermediate Itching Verified 08/16/24 23:26 [From Vitamin D3] ergocalciferol (vitamin D2) Allergy Intermediate Itching Verified 08/16/24 23:26 [From Vitamin D2] testosterone Allergy Intermediate Itching Verified 08/16/24 23:26 Penicillins Allergy Unknown HAPPENED Verified 08/16/24 23:26 A CHILD Consultations 08/16/24 22:49 ED Decision to Admit Stat 08/17/24 08:00 Consult Orthopedic Surgery Routine Procedures Performed Operation Date: 08/20/24 12:35 Actual Procedures p Revision Lumbar Spine Hardware, Spinal Cord Monitoring(Not Applicable) - Christian Rizvi DO Ordered Studies 08/20/24 12:35 FL lumbar spine 2-3V Routine Hospital Course (1) Spondylolisthesis, lumbar region: Patient was admitted status post multilevel lumbar decompression and fusion. He demonstrated evidence of broken instrumentation S1 level on the right. Subsequently we returned to the OR revise the decompression with revised instrumentation. Tolerated as well as taken orthopedic for postoperative. Postop he progressed appropriately. Pain improved. Subsequently discharged to rehab. Discharge orders and instructions from the chart for further review. He will maintain his drains upon discharge for approximately 2 to 3 days. Total Time Total Time Spent Total Time Spent (In Minutes): 20 minutes Discharge Plan Discharge Items Patient Disposition: Transfer Inpatient Rehab Fac Reason For Visit: WEAKNESS, FALLS, FLU Discharge Diagnosis: Lumbar spinal stenosis with spondylosis and radiculopathy Condition on Discharge: Fair Activity: As commented below Non-emergency contact: Primary Care Provider Call non-emergency contact if: you have any medication questions Follow-up/Referrals: Lee Ann Borrero PA-C [Primary Care Provider] - Diet: Regular Addtl Attending Provider Instructions: ACTIVITY RECOMMENDATIONS: SELF CARE INSTRUCTIONS AFTER THORACIC/LUMBAR FUSIONS 1. You may walk to your tolerance. It is good exercise for your legs and back. Expect some back and intermittent leg aches and pains. 2. You may perform "counter-top" level activities (make a sandwich, jacqueline with a project, etc.). 3. No bending or lifting of more than 10 pounds or back twisting of any nature (roll like a log when turning in bed). 4. You may ride in a car for 20-30 minutes at a time. No driving until after your first visit with your doctor. 5. Frequent changes of position and restricting sitting to 30 minutes at a time will help limit the amount of back spasms and stiffness you may experience. 6. You may discontinue the use of ambulatory aids (cane, crutches, etc.) once your strength and confidence allow. 7. You may principle industrial hygienist the shower and let water strike your incision when you arrive home at least once daily. Do not take a tub bath, sit in a hot tub or go into a swimming pool until after your first recheck in the office. 8. You may resume previous diet. SPECIAL CARE INSTRUCTIONS: VERY IMPORTANT TO READ AND REVIEW A. Your surgical incision has been closed with a cosmetic suture under the skin that will dissolve in about 6 weeks. In 14 days, you can use a pair of clean scissors and cut the suture that is left outside of the skin at the ends of your incision. 1. The small skin tapes can be removed 7 days after surgery if they have not fallen off by that point. 2. You may keep the wound open to air as much as possible to promote healing after post-op day number 5 unless told otherwise by your doctor. 3. If you think the wound looks like it is becoming infected (redness or worsening drainage) and/or you are experiencing fever, chill or worsening back pain and muscle spasms, contact the office so that we may evaluate you as soon as possible. B. Complications are uncommon, but please contact us if you have any signs or symptoms of: 1. wound infection (fever higher than 102.5 degrees F, redness, separation of wound, drainage, or increasing pain from the incision) 2. blood clots in legs (pain, swelling, redness and warmth in legs) 3. urinary tract infection (fever higher than 102.5 degrees F, burning upon urination or increased frequency of urination) 4. nerve problems (inability to walk on your toes or heels, numbness, loss of bowel or bladder control) 5. any other symptoms that concern you C. Please call the office at if you have any concerns or questions about your operation or recovery. D. No smoking! Smoking drastically decreases the chance of a solid fusion. E. Do not take any anti-inflammatory medications (Indocin, Advil, Motrin, Aspirin, Naprosyn, etc.) as these may inhibit the chance of a solid fusion. Tylenol is okay to take for pain. MANAGING PAIN AFTER SPINAL SURGERY 1. Narcotic medication is intended for short-term use and will be provided for surgical pain. Surgical pain usually lasts for a period of 4-6 weeks. Narcotic medication includes Percocet, Vicodin, Darvocet, Tylenol #3 or Lortab. 2. Longer-term pain is more appropriately treated with non-narcotic medication such as Tylenol ES. 3. Muscle spasm is not appropriately treated with narcotics. Muscle relaxers such as Soma, Flexeril or Skelaxin can be used along with Tylenol ES. 4. Remember that we all live with some "aches and pains". This is not unusual or uncommon after an injury or as we get older. a. Back pain is expected and may include muscle spasms for 4 to 6 weeks after surgery. The pain should gradually improve. If the pain worsens for no apparent reason, please contact the office. b. Intermittent leg pain may also be experienced and should not be concerned about unless it worsens for no apparent reason. If so, please contact the office. 5. We will provide appropriate medication within the normal guidelines of their prescribed use. We will also be very cautious and aware of potential abuse and extended duration of patients' medication needs. a. Pain medications are for your comfort and to assist with sleep and rest so that the tissue can heal. They are not provided in order to return to normal activity and should not be used through the day. To do so or worsening pain at night can result from ongoing tissue damage and development of tolerance to the prescribed medicine. 6. Please allow 2-3 days to process refills. Prescriptions will not be mailed but must be picked up at the office. FOLLOW UP VISIT: Keep your scheduled follow-up appointment. Any questions, please call the office at . Pending Studies at Discharge: No Stand-Alone Forms: My [facility] Skilled Items Patient informed of condition?: Yes DNR: No Discharge Level of Care: Acute rehab Communicable Disease: No Discharge Prognosis: Improving Lines: None Urinary Catheter: No Medications and DC Order Prescriptions: New oxycodone 5 mg tablet 5 mg PO Q6H PRN (Reason: pain) Qty: 30 0RF Continued metformin 500 mg Tablet 500 mg PO BID Rx Instructions: PT UNSURE IF TOOK PM DOSE atorvastatin 20 mg Tablet 20 mg PO QAM lisinopril 20 mg Tablet 20 mg PO QAM aspirin 81 mg Tablet,Delayed Release (Dr/Ec) 81 mg PO QAM omeprazole 20 mg Capsule,Delayed Release(Dr/Ec) 20 mg PO QAM hydrochlorothiazide 25 mg Tablet 25 mg PO QAM sertraline 50 mg Tablet 50 mg PO QAM glipizide 5 mg Tablet 2.5 mg PO BID Rx Instructions: PT NOT SURE IF TOOK PM DOSE. duloxetine 30 mg Capsule,Delayed Release(Dr/Ec) 30 mg PO QAM oxycodone 5 mg tablet 5 mg PO Q6H PRN (Reason: pain) Qty: 30 0RF cholecalciferol (vitamin D3) 1,250 mcg (50,000 unit) capsule 50,000 unit PO WK Qty: 11 0RF Rx Instructions: Take every for 12 weeks to complete course Discharge Orders: Discharge Order (Routine); Ordered 08/23/24 Ordered By: Christian Arshad/Other Patient Handouts: Managing Type 2 Diabetes, How to Check Your Blood Sugar Admission Data Admit Date/Time: 08/17/24 04:11 Attending Provider: Jaciel Manzo Admit Provider: Jaxson Lawrence Primary Care Provider: Lee Ann Borrero Other Providers: [facility]; Jaxson Lawrence; Christian Rizvi
--- NOTE | 2024-08-23 14:54 | Discharge Summary ---
Discharge Summary Date of Service August 23, 2024 Principal Dx & Hospital Course #1 = Principal Diagnosis (1) Fall: (2) Generalized weakness: (3) S/P lumbar spine operation: Gilbert Bravo is a 74y/o M with PMHx significant for HTN, HLD, chronic rhinitis, obesity, sarcoidosis, major depressive disorder, history of tobacco use, CARRI on CPAP HS, GERD and DMII who presented to the ED from home via EMS on 08/16/2024 after sustaining 2 ground-level falls at home due to bilateral lower extremity weakness in the setting of recent L1-S1 decompression and T12-S1 fusion performed by Dr. Rizvi on 08/09/2024. Lumbar spine XR with evidence of loss of fixation of the S1 pedicle screw on the right and the scarlet appeared to have dissociated from the tulip head. Underwent revision decompression fusion L5-S1 with replacement of S1 pedicle screws and rods on the right performed by Dr. Rizvi on 08/20/2024. Patient is being discharged to [facility] for further rehabilitation services. Will maintain surgical drains (x2) upon discharge for approximately 2 to 3 days as directed by Dr. Rizvi. (4) Acute blood loss anemia: Recent postoperative acute blood loss anemia secondary to above prior operation on 08/09/2024 requiring 2 units of PRBCs during his prior admission. Hgb 8.7 at time of discharge. Anemia panel WNL. Did not require additional transfusions this admission. Continue to hold ASA on discharge. (5) Influenza A: Incidentally found on admission, patient remains asymptomatic. May have been contributing to his generalized weakness and subsequent falls. Empirically started on Tamiflu and finished full 5-day course on 08/22/2024. (6) Abnormal chest x-ray: Initial CXR noted a soft tissue bulge and edge along the medial aspect of the right lung base which is not clearly present on his prior study. Follow-up repeat CXR on 08/17/2024 with mild atelectasis or scarring in the lung bases, otherwise no acute findings. Recommend follow-up as an outpatient. Encouraged to continue routine use of ISP. (7) Diabetes mellitus, type 2: SSI utilized while he was inpatient. Can resume home diabetic medications on discharge. Hgb A1c 6.5% on 08/17/2024. Other Chronic Medical Conditions: HTN - Initially hypotensive postoperatively. BP now improved. Home lisinopril and HCTZ resumed. HLD - Continue statin. CARRI - Continue CPAP HS. Vitamin D Deficiency - Continue vitamin D supplementation. GERD - Continue PPI. Depression - Continue duloxetine and Zoloft. PCP: Lee Ann Borrero PA-C [[facility]] Disposition: Patient is being discharged in stable condition to [facility] for further rehabilitation services. Patient seen in collaboration with Dr. Manzo. Please see addendum. I spent a total of 50 minutes coordinating, documenting, and providing care for this patient excluding time spent in the performance of separately billed services or time spent by another provider/QHP. This included personally reviewing all current laboratories and imaging studies, medical reconciliation, outpatient chart review and discussion with specialists. This chart was completed in part utilizing Speech Voice Recognition Software. Grammatical errors, random word insertions, pronoun errors, and incomplete sentences are an occasional consequence of this system due to software limitations, ambient noise, and hardware issues. Any formal questions or concerns about the content, text, or information contained within the body of this dictation should be directly addressed to the provider for clarification. Notes For Next Care Provider Will need repeat CBC in 1 week to monitor his H/H due to postoperative acute blood loss anemia. Medication Changes From Visit No changes made to patient's home medication list during this admission. Admission HPI Per Admitting Provider 74-year-old male with past medical history significant for hyperlipidemia, chronic rhinitis, obesity, sarcoidosis, depression, history of hyperglycemia, history of tobacco use, sleep apnea presents with falls. Patient had back surgery recently and was discharged on last Friday. He lives with his At home he was having a lot of back pain and feeling weakness in the legs and falling. Today when he fell he could not get up. And patient came to the ER. Denies any fevers. Earlier had runny nose that got resolved. Has some cough. Denies any fevers. Appetite is down. Denies chest pain or shortness of breath. No abdominal pain. Normal bowel and bladder movements. Hemodynamics are okay. In the ER he was found to have flu positive. Past medical history. As mentioned above Past surgical history. Anal fistula surgery. Colonoscopy. Nasal endoscopy. Tonsillectomy. Bilateral cataracts. Umbilical hernia repair. Social history. .Quit smoking 1976. Smoked 1 pack a day for 15 years. Alcohol yes. No drug use. Family history. Son has allergies. Admission Exam Per Admitting Provider General- Not in distress Head- atraumatic Eyes- PERRL. ENT- oropharynx clear Neck- supple, no JVD. Lungs- clear to auscultation , no wheezing or crackles Heart- regular rhythm; no murmur, no gallop. Abdomen- normal bowel sounds, soft, nontender, no distension Extremities- no pretibial edema, no erythema seen Neuro- alert, oriented PERRL, no facial palsy; no dysarthria; moves extremities Discharge Exam General: Obese M. NAD. Sitting up in chair at bedside. in the room. A+Ox3. Conversing appropriately. HEENT: Normocephalic, atraumatic. Conjunctivae normal. External ear and nose normal, oropharynx normal. Respiratory: Normal respiratory effort. Lungs clear to auscultation bilaterally. No accessory muscle use. Cardiovascular: Regular rate and rhythm. Normal peripheral pulses, no BLE edema. Abdomen/GI: Normal bowel sounds, soft. Nondistended. Nontender to palpation in all quadrants. Extremities/Musculoskeletal: IVONE drain x 2 (R and L) both intact and draining minimal serosanguineous output. Surgical dressing C/D/I. Neurologic: No overt focal deficits, CN's II-XI not formally tested but appear grossly intact bilaterally. Actively moves all extremities. Updated Medication List Medication Instructions Recorded Confirmed Type aspirin 81 mg tablet,delayed 81 mg PO QAM 07/02/24 08/16/24 History release atorvastatin 20 mg tablet 20 mg PO QAM 07/02/24 08/16/24 History duloxetine 30 mg capsule,delayed 30 mg PO QAM 07/02/24 08/16/24 History release glipizide 5 mg tablet 2.5 mg PO BID 07/02/24 08/16/24 History hydrochlorothiazide 25 mg tablet 25 mg PO QAM 07/02/24 08/16/24 History lisinopril 20 mg tablet 20 mg PO QAM 07/02/24 08/16/24 History metformin 500 mg tablet 500 mg PO BID 07/02/24 08/16/24 History omeprazole 20 mg capsule,delayed 20 mg PO QAM 07/02/24 08/16/24 History release sertraline 50 mg tablet 50 mg PO QAM 07/02/24 08/16/24 History oxycodone 5 mg tablet 5 mg PO Q6H PRN pain #30 tabs 08/10/24 08/16/24 Rx cholecalciferol (vitamin D3) 1,250 50,000 unit PO WK #11 caps 08/13/24 08/16/24 Rx mcg (50,000 unit) capsule oxycodone 5 mg tablet 5 mg PO Q6H PRN pain #30 tabs 08/23/24 Rx Hospital Stay Data Consultations 08/16/24 22:49 ED Decision to Admit Stat 08/17/24 08:00 Consult Orthopedic Surgery Routine Procedures Performed Operation Date: 08/20/24 12:35 Actual Procedures p Revision Lumbar Spine Hardware, Spinal Cord Monitoring(Not Applicable) - Christian Rizvi, DO Diagnostic Imagining Performed 08/20/24 12:35 FL lumbar spine 2-3V Routine Pending Results Patient Have Any Pending Studies at Discharge: No Discharge Instructions Given to Patient (Per Discharging Provider) ACTIVITY RECOMMENDATIONS: SELF CARE INSTRUCTIONS AFTER THORACIC/LUMBAR FUSIONS 1. You may walk to your tolerance. It is good exercise for your legs and back. Expect some back and intermittent leg aches and pains. 2. You may perform "counter-top" level activities (make a sandwich, jacqueline with a project, etc.). 3. No bending or lifting of more than 10 pounds or back twisting of any nature (roll like a log when turning in bed). 4. You may ride in a car for 20-30 minutes at a time. No driving until after your first visit with your doctor. 5. Frequent changes of position and restricting sitting to 30 minutes at a time will help limit the amount of back spasms and stiffness you may experience. 6. You may discontinue the use of ambulatory aids (cane, crutches, etc.) once your strength and confidence allow. 7. You may pad making machine operator the shower and let water strike your incision when you arrive home at least once daily. Do not take a tub bath, sit in a hot tub or go into a swimming pool until after your first recheck in the office. 8. You may resume previous diet. SPECIAL CARE INSTRUCTIONS: VERY IMPORTANT TO READ AND REVIEW A. Your surgical incision has been closed with a cosmetic suture under the skin that will dissolve in about 6 weeks. In 14 days, you can use a pair of clean scissors and cut the suture that is left outside of the skin at the ends of your incision. 1. The small skin tapes can be removed 7 days after surgery if they have not fallen off by that point. 2. You may keep the wound open to air as much as possible to promote healing after post-op day number 5 unless told otherwise by your doctor. 3. If you think the wound looks like it is becoming infected (redness or worsening drainage) and/or you are experiencing fever, chill or worsening back pain and muscle spasms, contact the office so that we may evaluate you as soon as possible. B. Complications are uncommon, but please contact us if you have any signs or symptoms of: 1. wound infection (fever higher than 102.5 degrees F, redness, separation of wound, drainage, or increasing pain from the incision) 2. blood clots in legs (pain, swelling, redness and warmth in legs) 3. urinary tract infection (fever higher than 102.5 degrees F, burning upon urination or increased frequency of urination) 4. nerve problems (inability to walk on your toes or heels, numbness, loss of bowel or bladder control) 5. any other symptoms that concern you C. Please call the office at if you have any concerns or questions about your operation or recovery. D. No smoking! Smoking drastically decreases the chance of a solid fusion. E. Do not take any anti-inflammatory medications (Indocin, Advil, Motrin, Aspirin, Naprosyn, etc.) as these may inhibit the chance of a solid fusion. Tylenol is okay to take for pain. MANAGING PAIN AFTER SPINAL SURGERY 1. Narcotic medication is intended for short-term use and will be provided for surgical pain. Surgical pain usually lasts for a period of 4-6 weeks. Narcotic medication includes Percocet, Vicodin, Darvocet, Tylenol #3 or Lortab. 2. Longer-term pain is more appropriately treated with non-narcotic medication such as Tylenol ES. 3. Muscle spasm is not appropriately treated with narcotics. Muscle relaxers such as Soma, Flexeril or Skelaxin can be used along with Tylenol ES. 4. Remember that we all live with some "aches and pains". This is not unusual or uncommon after an injury or as we get older. a. Back pain is expected and may include muscle spasms for 4 to 6 weeks after surgery. The pain should gradually improve. If the pain worsens for no apparent reason, please contact the office. b. Intermittent leg pain may also be experienced and should not be concerned about unless it worsens for no apparent reason. If so, please contact the office. 5. We will provide appropriate medication within the normal guidelines of their prescribed use. We will also be very cautious and aware of potential abuse and extended duration of patients' medication needs. a. Pain medications are for your comfort and to assist with sleep and rest so that the tissue can heal. They are not provided in order to return to normal activity and should not be used through the day. To do so or worsening pain at night can result from ongoing tissue damage and development of tolerance to the prescribed medicine. 6. Please allow 2-3 days to process refills. Prescriptions will not be mailed but must be picked up at the office. FOLLOW UP VISIT: Keep your scheduled follow-up appointment. Any questions, please call the office at . Total Time Total Time Spent Total Time Spent (In Minutes): 50
--- NOTE | 2024-08-23 15:35 | Hospitalist Progress Note ---
Date of Service August 23, 2024 Assessment & Plan (1) Fall: (2) Generalized weakness: (3) S/P lumbar spine operation: Plan: Gilbert Bravo is a 74y/o M with PMHx significant for HTN, HLD, chronic rhinitis, obesity, sarcoidosis, major depressive disorder, history of tobacco use, CARRI on CPAP HS, GERD and DMII who presented to the ED from home via EMS on 08/16/2024 after sustaining 2 ground-level falls at home due to bilateral lower extremity weakness in the setting of recent L1-S1 decompression and T12-S1 fusion performed by Dr. Rizvi on 08/09/2024. Lumbar spine XR with evidence of loss of fixation of the S1 pedicle screw on the right and the scarlet appeared to have dissociated from the tulip head. Underwent revision decompression fusion L5-S1 with replacement of S1 pedicle screws and rods on the right performed by Dr. Rizvi on 08/20/2024. Medically stable for discharge - planning to go to [facility] tomorrow for further rehabiliation services. (4) Acute blood loss anemia: Plan: Recent postoperative acute blood loss anemia secondary to above prior operation on 08/09/2024 requiring 2 units of PRBCs during his prior admission. Hgb 8.7 today. Anemia panel WNL. No indication to transfuse at this time. Continue to hold ASA. (5) Influenza A: Plan: Incidentally found on admission, patient remains asymptomatic. May have been contributing to his generalized weakness and subsequent falls. Empirically started on Tamiflu and finished full 5-day course on 08/22/2024. (6) Abnormal chest x-ray: Plan: Initial CXR noted a soft tissue bulge and edge along the medial aspect of the right lung base which is not clearly present on his prior study. Follow-up r epeat CXR on 08/17/2024 with mild atelectasis or scarring in the lung bases, otherwise no acute findings. Recommend follow-up as an outpatient. Encouraged to continue routine use of ISP. (7) Diabetes mellitus, type 2: Plan: SSI utilized while inpatient. Continue BSG checks ACHS. Can resume home diabetic medications on discharge. Hgb A1c 6.5% on 08/17/2024. Other Chronic Medical Conditions: HTN - Initially hypotensive postoperatively. BP now improved. Home lisinopril and HCTZ resumed. HLD - Continue statin. CARRI - Continue CPAP HS. Vitamin D Deficiency - Continue vitamin D supplementation. GERD - Continue PPI. Depression - Continue duloxetine and Zoloft. DVT Prophylaxis: SCDs/TEDs in light of postoperative anemia. Code Status: FULL CODE PCP: Lee Ann Borrero PA-C [[facility]] Disposition: Medically stable for discharge. Was planning on discharge to [facility] today however cannot accept patient until tomorrow. Patient seen in collaboration with Dr. Manzo. Please see addendum. I spent a total of 40 minutes coordinating, documenting, and providing care for this patient excluding time spent in the performance of separately billed services or time spent by another provider/QHP. This included personally reviewing all current laboratories and imaging studies, medical reconciliation, outpatient chart review and discussion with specialists. This chart was completed in part utilizing Speech Voice Recognition Software. Grammatical errors, random word insertions, pronoun errors, and incomplete sentences are an occasional consequence of this system due to software limitations, ambient noise, and hardware issues. Any formal questions or concerns about the content, text, or information contained within the body of this dictation should be directly addressed to the provider for clarification. Admission and Anticipated Discharge Date Admission Date: August 17, 2024 Supervising Physician Co-Signing Physician Notes Patient is seen and examined at bedside. No new complaints. Pain in surgical site continues to improve. Did well with PT this morning. Plan to discharge to rehab facility when accepted. Patient is currently being managed for pain back pain likely secondary to loosening of hardware, generalized weakness, flu A infection. Patient had replacement of hardware by Dr. Rizvi on 08/21/2024. Blood pressure stable today. Continue current home medications. Pain control, PT OT, fall precautions. Plan to start anticoagulation for DVT prophylaxis if okay with Dr. Rizvi. Completed Tamiflu course. Continue insulin while hospitalized for management of diabetes mellitus. Continue Incentive spirometry. I have reviewed the advanced practitioner's documentation on the date of service referred in note and agree with plan. Patient's care is coordinated with Rosy Barrientos PA-C. Please refer to the documentation above for details of patient's presentation and for discussion of other issues. I spent a total [id number] coordinating, documenting, and providing care for this patient excluding time spent in the performance of separately billed services or time spent by another provider/QHP. Subjective Patient seen and examined at bedside in room E312-1. NAEO. at bedside. Endorses good pain control this morning. Mentions his back pain is slowly imp roving. Had BM this morning. Tolerating a diet without issue. Blood pressure much improved. voiced concern regarding gabapentin causing extreme drowsiness therefore this medication was stopped. Review of Systems Review of Systems: At least ten systems reviewed and negative, except as noted in the subjective section. Physical Exam Physical Exam: General: Obese M. NAD. Sitting up in chair at bedside. in the room. A+Ox3. Conversing appropriately. HEENT: Normocephalic, atraumatic. Conjunctivae normal. External ear and nose normal, oropharynx normal. Respiratory: Normal respiratory effort. Lungs clear to auscultation bilaterally. No accessory muscle use. Cardiovascular: Regular rate and rhythm. Normal peripheral pulses, no BLE edema. Abdomen/GI: Normal bowel sounds, soft. Nondistended. Nontender to palpation in all quadrants. Extremities/Musculoskeletal: IVONE drain x 2 (R and L) both intact and draining minimal serosanguineous output. Surgical dressing C/D/I. Neurologic: No overt focal deficits, CN's II-XI not formally tested but appear grossly intact bilaterally. Actively moves all extremities. Results & Data Results & Data Vital Signs (Past 12 Hours) Vital Signs Temp Pulse Resp BP Pulse Ox O2 Del Method 08/23/24 11:40 37.1 C 95 H 16 127/82 95 Room Air 08/23/24 07:50 36.4 C L 97 H 16 152/92 H 95 Room Air Laboratory Results Short CBC 08/23/24 Range/Units 05:37 Hgb 8.7 L (14.0-18.0) g/dl Hct 25.4 L (42.0-52.0) % BMP 08/23/24 05:37 Sodium 131 L Potassium 4.0 Chloride 96 L Carbon Dioxide 29 BUN 14 Creatinine 0.68 Glucose 188 H Calcium 8.9 Diagnostic Findings Chest X-Ray 08/16/24 21:16 Exam(s): XR CXR 1 VIEW EXAM: XR Chest, 1 View CLINICAL HISTORY: Reason for exam: weakness. TECHNIQUE: Frontal view of the chest. COMPARISON: July 23, 2012. FINDINGS: Lungs: There is a soft tissue bulge and edge along the medial aspect of the right lung base which is not clearly present on the prior study. A mass is difficult to exclude. Pleural space: Unremarkable. No pneumothorax or pleural fluid. Heart: Unremarkable. No cardiomegaly. Mediastinum: Unremarkable. Normal mediastinal contour. Bones/joints: No acute findings. IMPRESSION: There is a soft tissue bulge and edge along the medial aspect of the right lung base which is not clearly present on the prior study. A mass is difficult to exclude. No other abnormalities. Electronically signed by: Toni Herrera MD 08/16/24 23:26 PM Chest X-Ray 08/17/24 05:38 XR chest 2V PA/lateral CLINICAL HISTORY: right lung base mass? on portable cxr COMPARISON STUDY: 08/16/2024 FINDINGS: Heart size and pulmonary vasculature are normal. The finding at the medial right lung base on the previous exam is no longer seen. There is mild atelectasis or scarring in the lung bases on the lateral view. No consolidation or pleural effusion. No pneumothorax seen. IMPRESSION: Mild atelectasis or scarring in the lung bases. Otherwise no acute findings. ACT 112: Negative or not required by law. Electronically signed by: Santo Chaparro M.D. 08/17/2024 9:17 AM Lumbar Spine X-Ray 08/18/24 05:35 XR lumbar spine 2-3V CLINICAL HISTORY: post op COMPARISON STUDY: 08/09/2024 FINDINGS: Posterior metallic fusion from T11 through L5 shows no hardware complication. There is stable borderline grade 1/2 anterolisthesis of L4 on 5. No fracture seen. Stable degenerative changes. IMPRESSION: No acute findings. ACT 112: Negative or not required by law. Electronically signed by: Santo Chaparro M.D. 08/18/2024 10:04 AM Lumbar Spine X-Ray 08/20/24 12:35 FL lumbar spine 2-3V CLINICAL HISTORY: REVISION LUMBAR SPINE HARDWARE COMPARISON STUDY: 08/18/2024 FLUOROSCOPY TIME: 5 seconds FLUOROSCOPY IMAGES: 3 EXPOSURE DOSE: 4 mGy FINDINGS: Fluoroscopy was provided for revision of spinal hardware. IMPRESSION: Intraoperative fluoroscopy. ACT 112: Negative or not required by law. Electronically signed by: Santo Chaparro M.D. 08/20/2024 1:08 PM Lumbar Spine X-Ray 08/23/24 06:06 XR lumbar spine 2-3V CLINICAL HISTORY: post op films standing if possible COMPARISON STUDY: 08/18/2024 FINDINGS: There is stable posterior metallic fusion from T12 through S1. No hardware complication seen. No fracture. Stable anterolisthesis of L5 on S1. There are interval electronic leads overlying the upper and right abdomen. IMPRESSION: No acute findings. ACT 112: Negative or not required by law. Electronically signed by: Santo Chaparro M.D. 08/23/2024 10:03 AM Medications Administered Acetaminophen (Acetaminophen 500 Mg Tab) 1,000 mg PO Q8H PRN PRN Reason: MILD Pain Scale 1,2,3 & Pre PT Stop: 09/19/24 13:58 Last Admin: 08/23/24 08:22 Dose: 1,000 mg Documented By: Admin: 08/22/24 20:28 Dose: 1,000 mg Documented By: NIKI Atorvastatin Calcium (Atorvastatin 20 Mg Tab) 20 mg PO QAOK [facility] [place] Stop: 09/16/24 08:59 Last Admin: 08/23/24 08:22 Dose: 20 mg Documented By: Admin: 08/22/24 09:10 Dose: 20 mg Documented By: Admin: 08/21/24 09:22 Dose: 20 mg Documented By: Admin: 08/20/24 08:20 Dose: 20 mg Documented By: Admin: 08/19/24 08:39 Dose: 20 mg Documented By: Admin: 08/18/24 08:18 Dose: 20 mg Documented By: Admin: 08/17/24 08:12 Dose: 20 mg Documented By: CT Duloxetine HCl (Duloxetine Hcl 30 Mg Cap) 30 mg PO QAOK [facility] [place] Stop: 09/16/24 08:59 Last Admin: 08/23/24 08:22 Dose: 30 mg Documented By: Admin: 08/22/24 09:10 Dose: 30 mg Documented By: Admin: 08/21/24 09:22 Dose: 30 mg Documented By: Admin: 08/20/24 08:20 Dose: 30 mg Documented By: Admin: 08/19/24 08:40 Dose: 30 mg Documented By: Admin: 08/18/24 08:18 Dose: 30 mg Documented By: Admin: 08/17/24 08:11 Dose: 30 mg Documented By: CT Hydrochlorothiazide (Hydrochlorothiazide 25 Mg Tab) 25 mg PO QA KEO Stop: 09/16/24 08:59 Last Admin: 08/23/24 10:10 Dose: 25 mg Documented By: Admin: 08/20/24 08:19 Dose: 25 mg Documented By: AYLA Hydromorphone HCl (Hydromorphone Inj 1 Mg/Ml Syringe) 1 mg IV Q3H PRN PRN Reason: SEVERE Pain (Scale 7,8,9,10) Stop: 09/03/24 13:58 Last Admin: 08/20/24 23:55 Dose: 1 mg Documented By: NIKI Insulin Aspart (Insulin Aspart Per Unit Charge) 0 units SC ACHS [facility] Stop: 09/19/24 11:59 Last Admin: 08/23/24 12:38 Dose: 4 units Documented By: HILARIO Co-signed By: URSULA Admin: 08/23/24 08:23 Dose: 6 units Documented By: HILARIO Co-signed By: REAGAN Admin: 08/22/24 21:02 Dose: 4 units Documented By: NIKI Co-signed By: HU Admin: 08/22/24 17:00 Dose: 7 units Documented By: CT Co-signed By: ANGEL Admin: 08/22/24 12:15 Dose: 6 units Documented By: CT Co-signed By: AYLA(2) Admin: 08/22/24 08:42 Dose: 5 units Documented By: CT Co-signed By: YOLANDE Admin: 08/21/24 21:17 Dose: 3 units Documented By: BHUMIKAW Co-signed By: DIGNA Admin: 08/21/24 17:46 Dose: 6 units Documented By: CT Co-signed By: YOLANDE Admin: 08/21/24 12:28 Dose: 4 units Documented By: CT Co-signed By: YOLANDE Admin: 08/21/24 09:23 Dose: 3 units Documented By: CT Co-signed By: ANGEL Admin: 08/20/24 20:25 Dose: 6 units Documented By: NIKI Co-signed By: DIGNA Admin: 08/20/24 17:16 Dose: 7 units Documented By: AYLA Co-signed By: REAGAN Lisinopril (Lisinopril 20 Mg Tab) 20 mg PO QAOK [facility] [place] Stop: 09/21/24 13:09 Last Admin: 08/23/24 08:22 Dose: 20 mg Documented By: HILARIO Lorazepam (Lorazepam 0.5 Mg Tab) 0.5 mg PO Q8H PRN PRN Reason: Sedation/Anxiety Stop: 09/19/24 13:58 Last Admin: 08/21/24 20:23 Dose: 0.5 mg Documented By: NIKI Pantoprazole Sodium (Pantoprazole 40 Mg Tab) 40 mg PO QAM [facility] Stop: 09/16/24 08:59 Last Admin: 08/23/24 08:22 Dose: 40 mg Documented By: Admin: 08/22/24 09:10 Dose: 40 mg Documented By: Admin: 08/21/24 09:22 Dose: 40 mg Documented By: Admin: 08/20/24 08:20 Dose: 40 mg Documented By: Admin: 08/19/24 08:40 Dose: 40 mg Documented By: Admin: 08/18/24 08:18 Dose: 40 mg Documented By: Admin: 08/17/24 08:11 Dose: 40 mg Documented By: CT Senna/Docusate Sodium (Docusate Sodium/Senna 50/8.6mg Tab) 2 tab PO HS KEO Stop: 09/19/24 20:59 Last Admin: 08/22/24 20:28 Dose: 2 tab Documented By: Admin: 08/21/24 20:23 Dose: 2 tab Documented By: Admin: 08/20/24 20:24 Dose: 2 tab Documented By: NIKI Sertraline HCl (Sertraline Hcl 50 Mg Tablet) 50 mg PO QAM [facility] Stop: 09/16/24 08:59 Last Admin: 08/23/24 08:22 Dose: 50 mg Documented By: Admin: 08/22/24 09:11 Dose: 50 mg Documented By: Admin: 08/21/24 09:22 Dose: 50 mg Documented By: Admin: 08/20/24 08:20 Dose: 50 mg Documented By: Admin: 08/19/24 08:39 Dose: 50 mg Documented By: Admin: 08/18/24 08:18 Dose: 50 mg Documented By: Admin: 08/17/24 08:11 Dose: 50 mg Documented By: CT Tramadol HCl (Tramadol Hcl 50 Mg Tablet) 50 - 100 mg PO Q4H PRN PRN Reason: Moderate-Severe pain & Pre PT Stop: 09/19/24 13:58 Last Admin: 08/23/24 13:21 Dose: 50 mg Documented By: Admin: 08/21/24 20:23 Dose: 50 mg Documented By: Admin: 08/21/24 12:44 Dose: 100 mg Documented By: Admin: 08/21/24 06:06 Dose: 100 mg Documented By: NIKI Vitamin D (Cholecalciferol 125 Mcg (5,000 Units) Tab) 1,250 mcg PO Th@0900 [facility] Stop: 09/18/24 08:59 Last Admin: 08/19/24 09:36 Dose: 1,250 mcg Documented By: AYLA Discontinued Medications Acetaminophen (Acetaminophen 325 Mg Tab) 650 mg PO Q4H PRN PRN Reason: pain/fever Stop: 09/16/24 05:37 Last Admin: 08/17/24 05:47 Dose: 650 mg Documented By: PAULINE Acetaminophen (Acetaminophen 500 Mg Tab) 1,000 mg PO Q8H PRN PRN Reason: pain/fever Stop: 09/16/24 05:37 Last Admin: 08/19/24 19:58 Dose: 1,000 mg Documented By: Admin: 08/19/24 07:33 Dose: 1,000 mg Documented By: Admin: 08/18/24 16:50 Dose: 1,000 mg Documented By: Admin: 08/18/24 08:23 Dose: 1,000 mg Documented By: Admin: 08/17/24 21:22 Dose: 1,000 mg Documented By: Admin: 08/17/24 13:14 Dose: 1,000 mg Documented By: CT Aspirin (Aspirin 81 Mg Ectab) 81 mg PO QAM [facility] Stop: 09/16/24 08:59 Last Admin: 08/18/24 08:18 Dose: 81 mg Documented By: Admin: 08/17/24 08:12 Dose: 81 mg Documented By: CT Bupivacaine HCl/Epinephrine Bitart (Bupivacaine/Epinephrine 0.25% 1:200,000 30 Ml Vial) Confirm Administered Dose 30 ml .ROUTE .STK-MED ONE Stop: 08/20/24 09:52 Last Admin: 08/20/24 11:32 Dose: 30 ml Documented By: GMB Cefazolin Sodium (Cefazolin 330 Mg/Ml 1 Gm Vial) Confirm Administered Dose 990 mg .ROUTE .STK-MED ONE Stop: 08/20/24 09:53 Last Admin: 08/20/24 11:33 Dose: 990 mg Documented By: AWAIS Clindamycin Phosphate (Clindamycin 600 Mg/D5w 50 Ml Bag) Confirm Administered Dose 600 mg IV .STK-MED ONE Stop: 08/20/24 10:22 Last Admin: 08/20/24 14:01 Dose: Not Given Documented By: AYLA Fentanyl Citrate (Fentanyl Citrate Pf 100 Mcg/2 Ml Vial) 50 mcg IV Q5M PRN PRN Reason: PACU Use Only-Pain Stop: 08/20/24 18:53 Last Admin: 08/20/24 12:57 Dose: 50 mcg Documented By: Admin: 08/20/24 12:52 Dose: 50 mcg Documented By: Admin: 08/20/24 12:44 Dose: 50 mcg Documented By: Admin: 08/20/24 12:38 Dose: 50 mcg Documented By: ROBIN Gabapentin (Gabapentin 100 Mg Cap) 100 mg PO TID KEO Stop: 09/21/24 08:59 Last Admin: 08/23/24 08:22 Dose: 100 mg Documented By: Admin: 08/22/24 20:28 Dose: 100 mg Documented By: Admin: 08/22/24 13:07 Dose: Not Given Documented By: Admin: 08/22/24 08:53 Dose: 100 mg Documented By: CT Gentamicin Sulfate (Gentamicin Sulfate 40 Mg/Ml 2 Ml Vial) Confirm Administered Dose 240 mg .ROUTE .STK-MED ONE Stop: 08/20/24 09:52 Last Admin: 08/20/24 11:33 Dose: 240 mg Documented By: AWAIS Hydromorphone HCl (Hydromorphone Inj 0.5 Mg/0.5 Ml Syr) 0.5 mg IV Q4H PRN PRN Reason: Severe Pain (Scale 7, 8, 9,10) Stop: 08/31/24 05:37 Last Admin: 08/17/24 10:53 Dose: 0.5 mg Documented By: CT Hydromorphone HCl (Hydromorphone Inj 2 Mg/Ml Syr/Vial) 0.5 mg IV Q5M PRN PRN Reason: PACU Use Only-Pain Stop: 08/20/24 18:53 Last Admin: 08/20/24 13:17 Dose: 0.5 mg Documented By: Admin: 08/20/24 13:12 Dose: 0.5 mg Documented By: Admin: 08/20/24 13:07 Dose: 0.5 mg Documented By: Admin: 08/20/24 13:02 Dose: 0.5 mg Documented By: ROBIN Sodium Chloride (Nss) 500 mls @ 999 mls/hr IV .Q31M ONE Stop: 08/16/24 21:46 Last Infusion: 08/16/24 22:39 Dose: Infused Documented By: Admin: 08/16/24 21:39 Dose: 999 mls/hr Documented By: JEREMY Lactated Ringer's (Lr) 1,000 mls @ 80 mls/hr IV .[id number] KEO Stop: 08/18/24 05:37 Last Infusion: 08/17/24 12:19 Dose: Infused Documented By: Admin: 08/17/24 05:48 Dose: 80 mls/hr Documented By: PAULINE Lactated Ringer's (Lr) 1,000 mls @ 15 mls/hr IV .Q24H KEO Stop: 08/21/24 10:14 Last Infusion: 08/20/24 14:07 Dose: Infused Documented By: Admin: 08/20/24 10:13 Dose: 15 mls/hr Documented By: BASILIO Clindamycin Phosphate (Cleocin/D5w) 600 mg in 50 mls @ 100 mls/hr IV NOW ONE Stop: 08/20/24 10:49 Last Infusion: 08/20/24 14:08 Dose: Infused Documented By: Admin: 08/20/24 10:54 Dose: 100 mls/hr Documented By: [id number] Acetaminophen (Ofirmev) 1,000 mg in 100 mls @ 400 mls/hr IV Q8H PRN PRN Reason: Pain Rating 1-3 & Pre PT Stop: 08/21/24 14:00 Last Infusion: 08/20/24 15:31 Dose: Infused Documented By: Admin: 08/20/24 15:06 Dose: 400 mls/hr Documented By: CSE Clindamycin Phosphate (Cleocin/D5w) 600 mg in 50 mls @ 100 mls/hr IV Q8H KEO Stop: 08/21/24 02:44 Last Infusion: 08/21/24 02:55 Dose: Infused Documented By: Admin: 08/21/24 02:18 Dose: 100 mls/hr Documented By: Infusion: 08/20/24 17:52 Dose: Infused Documented By: Admin: 08/20/24 17:22 Dose: 100 mls/hr Documented By: AYLA Sodium Chloride (Nss) 1,000 mls @ 100 mls/hr IV .Q10H KEO Stop: 08/21/24 01:14 Last Infusion: 08/21/24 00:46 Dose: Infused Documented By: Admin: 08/20/24 15:40 Dose: 100 mls/hr Documented By: AYLA Insulin Aspart (Insulin Aspart Per Unit Charge) 0 units SC ACHS [facility] Stop: 09/16/24 07:29 Last Admin: 08/20/24 06:44 Dose: 1 units Documented By: ELIZABET Co-signed By: CELESTE Admin: 08/19/24 21:03 Dose: 3 units Documented By: ELIZABET Co-signed By: CELESTE Admin: 08/19/24 17:30 Dose: 4 units Documented By: AYLA Co-signed By: REAGAN Admin: 08/19/24 12:28 Dose: 4 units Documented By: AYLA Co-signed By: REAGAN Admin: 08/19/24 08:37 Dose: 4 units Documented By: AYLA Co-signed By: AYLA(2) Admin: 08/18/24 20:39 Dose: 2 units Documented By: CELESTE Co-signed By: ELIZABET Admin: 08/18/24 16:46 Dose: 5 units Documented By: PATRICK Co-signed By: BRAYDEN Admin: 08/18/24 12:25 Dose: 4 units Documented By: PATRICK Co-signed By: AYLA(2) Admin: 08/18/24 08:20 Dose: 4 units Documented By: PATRICK Co-signed By: ANGEL Admin: 08/17/24 21:23 Dose: 4 units Documented By: CELESTE Co-signed By: ELIZABET Admin: 08/17/24 18:00 Dose: 5 units Documented By: CT Co-signed By: YAS Admin: 08/17/24 12:45 Dose: 6 units Documented By: CT Co-signed By: YAS Admin: 08/17/24 08:14 Dose: 4 units Documented By: CT Co-signed By: DM Insulin Aspart (Insulin Aspart Per Unit Charge) 0 units SC Q6 [facility] Stop: 09/19/24 11:59 Last Admin: 08/20/24 14:22 Dose: Not Given Documented By: AYLA Co-signed By: ALIZE Lidocaine (Lidocaine 5% 1 Patch) 1 patch TD NOW STA Stop: 08/17/24 12:04 Last Admin: 08/17/24 13:14 Dose: 1 patch Documented By: CT Lisinopril (Lisinopril 20 Mg Tab) 20 mg PO QAM [facility] Stop: 09/18/24 08:59 Last Admin: 08/20/24 08:20 Dose: 20 mg Documented By: Admin: 08/19/24 08:38 Dose: 20 mg Documented By: AYLA Melatonin (Melatonin 3 Mg Tab) 3 mg PO NOW STA Stop: 08/17/24 03:45 Last Admin: 08/17/24 04:06 Dose: 3 mg Documented By: FERNY Miscellaneous (Remove Lidoderm Patch) 1 each N/A DAILY@0000 [facility] Stop: 08/18/24 00:01 Last Admin: 08/17/24 23:24 Dose: Not Given Documented By: CELESTE Miscellaneous ( Floseal Hemostatic Matrix 10ml) 10 ml TOP ONCE ONE Stop: 08/20/24 11:35 Last Admin: 08/20/24 14:01 Dose: Not Given Documented By: AYLA Miscellaneous Information (Nursing To Pharmacy Communication) 1 each N/A TODAY [facility] Stop: 09/19/24 14:14 Last Admin: 08/20/24 14:42 Dose: Not Given Documented By: AYLA Morphine Sulfate (Morphine Sulfate 4 Mg/Ml 1 Ml Carp\Vial) 4 mg IV NOW STA Stop: 08/16/24 22:21 Last Admin: 08/16/24 22:40 Dose: 4 mg Documented By: JEREMY Ondansetron HCl (Ondansetron Inj 2 Mg/Ml 2 Ml Vial) 4 mg IV NOW STA Stop: 08/16/24 22:21 Last Admin: 08/16/24 22:40 Dose: 4 mg Documented By: JEREMY Ondansetron HCl (Ondansetron Inj 2 Mg/Ml 2 Ml Vial) 4 mg IV Q6H PRN PRN Reason: Nausea And Vomiting Stop: 09/19/24 09:22 Last Admin: 08/20/24 09:40 Dose: 4 mg Documented By: AYLA Oseltamivir Phosphate (Oseltamivir Phosphate 75 Mg Cap) 75 mg PO BID KEO Stop: 08/22/24 08:59 Last Admin: 08/21/24 20:19 Dose: 75 mg Documented By: Admin: 08/21/24 09:22 Dose: 75 mg Documented By: Admin: 08/20/24 20:24 Dose: 75 mg Documented By: Admin: 08/20/24 08:20 Dose: 75 mg Documented By: Admin: 08/19/24 19:59 Dose: 75 mg Documented By: Admin: 08/19/24 08:38 Dose: 75 mg Documented By: Admin: 08/18/24 20:22 Dose: 75 mg Documented By: Admin: 08/18/24 08:18 Dose: 75 mg Documented By: Admin: 08/17/24 21:31 Dose: 75 mg Documented By: Admin: 08/17/24 08:11 Dose: 75 mg Documented By: CT Oxycodone HCl (Oxycodone Hcl Ir 5 Mg Tab (Immediate Release)) 5 mg PO NOW STA Stop: 08/17/24 03:45 Last Admin: 08/17/24 04:05 Dose: 5 mg Documented By: FERNY Oxycodone HCl (Oxycodone Hcl Ir 5 Mg Tab (Immediate Release)) 5 mg PO Q6H PRN PRN Reason: Mod-Sev Pain (Scale 4-10) Stop: 08/31/24 05:37 Last Admin: 08/17/24 09:18 Dose: 5 mg Documented By: CT Oxycodone HCl (Oxycodone Hcl Ir 5 Mg Tab (Immediate Release)) 5 - 10 mg PO Q6H PRN PRN Reason: Mod-Sev Pain (Scale 4-10) Stop: 08/31/24 05:37 Last Admin: 08/20/24 04:56 Dose: 10 mg Documented By: Admin: 08/19/24 22:22 Dose: 5 mg Documented By: Admin: 08/19/24 16:36 Dose: 5 mg Documented By: Admin: 08/19/24 02:58 Dose: 10 mg Documented By: Admin: 08/18/24 20:23 Dose: 10 mg Documented By: Admin: 08/18/24 12:40 Dose: 10 mg Documented By: Admin: 08/18/24 04:12 Dose: 10 mg Documented By: Admin: 08/17/24 21:23 Dose: 10 mg Documented By: Admin: 08/17/24 13:39 Dose: 10 mg Documented By: CT Oxycodone HCl (Oxycodone Hcl Ir 5 Mg Tab (Immediate Release)) 5 - 10 mg PO Q4H PRN PRN Reason: Pain & Pre PT Stop: 09/03/24 13:58 Last Admin: 08/22/24 11:25 Dose: 10 mg Documented By: Admin: 08/21/24 17:51 Dose: 10 mg Documented By: Admin: 08/21/24 10:52 Dose: 10 mg Documented By: Admin: 08/20/24 20:28 Dose: 10 mg Documented By: NIKI Polyethylene Glycol (Polyethylene (Miralax) 17 Gm Pack) 17 gm PO DAILY PRN PRN Reason: Constipation Stop: 09/16/24 05:37 Last Admin: 08/18/24 08:24 Dose: 17 gm Documented By: Admin: 08/17/24 13:19 Dose: 17 gm Documented By: CT Polyethylene Glycol (Polyethylene (Miralax) 17 Gm Pack) 17 gm PO Q6 [facility] Stop: 09/20/24 05:59 Last Admin: 08/22/24 17:00 Dose: Not Given Documented By: Admin: 08/22/24 11:48 Dose: Not Given Documented By: Admin: 08/22/24 06:09 Dose: 17 gm Documented By: Admin: 08/22/24 01:18 Dose: Not Given Documented By: Admin: 08/21/24 17:47 Dose: Not Given Documented By: Admin: 08/21/24 12:27 Dose: 17 gm Documented By: Admin: 08/21/24 06:03 Dose: 17 gm Documented By: NIKI Vancomycin HCl (Vancomycin Hcl 1000mg/20ml Vial) Confirm Administered Dose 50 mg .ROUTE .STK-MED ONE Stop: 08/20/24 09:52 Last Admin: 08/20/24 11:33 Dose: 50 mg Documented By: AWAIS (1) Fall Encounter type: initial encounter Qualified Code(s): W19.XXXA - Unspecified fall, initial encounter (7) Diabetes mellitus, type 2 Diabetes mellitus complication status: without complication Diabetes mellitus detention insulin use: without detention use Qualified Code(s): E11.9 - Type 2 diabetes mellitus without complications
[2024-08-24 07:13] LABS: Hematocrit (blood only) 25.9 % (42.0-52.0); Hemoglobin 8.8 g/dl (14.0-18.0); Mean Corpuscular Hemoglobin 29.5 pg (25.0-34.0); Mean Corpuscular Volume 86.9 fL (80.0-100.0); Mean Platelet Volume 9.2 fL (9.4-12.4); Platelet Count 304 K/uL (130-400); RDW Coefficient of Variation 13.2 % (11.5-14.5); RDW Standard Deviation 41.6 fL (36.4-46.3); Red Blood Count 2.98 M/uL (4.70-6.10); White Blood Count 10.41 K/ul (4.8-10.8)
--- NOTE | 2024-08-24 07:16 | Discharge Summary ---
Discharge Summary Date of Service August 24, 2024 Principal Dx & Hospital Course #1 = Principal Diagnosis (1) Fall: (2) Generalized weakness: (3) S/P lumbar spine operation: Gilbert Bravo is a 74y/o M with PMHx significant for HTN, HLD, chronic rhinitis, obesity, sarcoidosis, major depressive disorder, history of tobacco use, CARRI on CPAP HS, GERD and DMII who presented to the ED from home via EMS on 08/16/2024 after sustaining 2 ground-level falls at home due to bilateral lower extremity weakness in the setting of recent L1-S1 decompression and T12-S1 fusion performed by Dr. Rizvi on 08/09/2024. Lumbar spine XR with evidence of loss of fixation of the S1 pedicle screw on the right and the scarlet appeared to have dissociated from the tulip head. Underwent revision decompression fusion L5-S1 with replacement of S1 pedicle screws and rods on the right performed by Dr. Rizvi on 08/20/2024. Patient did have some right calf tenderness today therefore a right lower extremity venous doppler ultrasound was obtained and came back NEGATIVE. Patient is being discharged to [facility] for further rehabilitation services. (4) Acute blood loss anemia: Recent postoperative acute blood loss anemia secondary to above prior operation on 08/09/2024 requiring 2 units of PRBCs during his prior admission. Hgb remains stable at 8.8 at time of discharge. Anemia panel WNL. No indication to transfuse during this admission. Continue to hold ASA on discharge. Will need repeat H/H in 1 week. (5) Influenza A: Incidentally found on admission, patient remains asymptomatic. May have been contributing to his generalized weakness and subsequent falls. Empirically started on Tamiflu and finished full 5-day course on 08/22/2024. (6) Abnormal chest x-ray: Initial CXR noted a soft tissue bulge and edge along the medial aspect of the right lung base which is not clearly present on his prior study. Follow-up repeat CXR on 08/17/2024 with mild atelectasis or scarring in the lung bases, otherwise no acute findings. Recommend follow-up as an outpatient. Encouraged to continue routine use of ISP. (7) Hypomagnesemia: IV mag ordered for repletion prior to discharge. Started on magnesium supplement as well. (8) Diabetes mellitus, type 2: SSI utilized while inpatient. Can resume home diabetic medications on discharge. Hgb A1c 6.5% on 08/17/2024. Other Chronic Medical Conditions: HTN - Initially hypotensive postoperatively. BP now improved. Home lisinopril resumed. HCTZ stopped 2/2 hyponatremia. HLD - Continue statin. CARRI - Continue CPAP HS. Vitamin D Deficiency - Continue vitamin D supplementation. GERD - Continue PPI. Depression - Continue duloxetine and Zoloft. PCP: Lee Ann Borrero PA-C [[facility]] Disposition: Patient is being discharged in stable condition to [facility] for further rehabilitation services. Patient seen in collaboration with Dr. Manzo. Please see addendum. I spent a total of 50 minutes coordinating, documenting, and providing care for this patient excluding time spent in the performance of separately billed services or time spent by another provider/QHP. This included personally reviewing all current laboratories and imaging studies, medical reconciliation, outpatient chart review and discussion with specialists. This chart was completed in part utilizing Speech Voice Recognition Software. Grammatical errors, random word insertions, pronoun errors, and incomplete sentences are an occasional consequence of this system due to software limitations, ambient noise, and hardware issues. Any formal questions or concerns about the content, text, or information contained within the body of this dictation should be directly addressed to the provider for clarification. Notes For Next Care Provider HCTZ discontinued due to worsening hyponatremia. Will need repeat CBC and BMP in 1 week to monitor H/H and sodium level. Medication Changes From Visit No medication changes were made during this admission. Admission HPI Per Admitting Provider 74-year-old male with past medical history significant for hyperlipidemia, chronic rhinitis, obesity, sarcoidosis, depression, history of hyperglycemia, history of tobacco use, sleep apnea presents with falls. Patient had back surgery recently and was discharged on last Friday. He lives with his At home he was having a lot of back pain and feeling weakness in the legs and falling. Today when he fell he could not get up. And patient came to the ER. Denies any fevers. Earlier had runny nose that got resolved. Has some cough. Denies any fevers. Appetite is down. Denies chest pain or shortness of breath. No abdominal pain. Normal bowel and bladder movements. Hemodynamics are okay. In the ER he was found to have flu positive. Past medical history. As mentioned above Past surgical history. Anal fistula surgery. Colonoscopy. Nasal endoscopy. Tonsillectomy. Bilateral cataracts. Umbilical hernia repair. Social history. .Quit smoking 1976. Smoked 1 pack a day for 15 years. Alcohol yes. No drug use. Family history. Son has allergies. Admission Exam Per Admitting Provider General- Not in distress Head- atraumatic Eyes- PERRL. ENT- oropharynx clear Neck- supple, no JVD. Lungs- clear to auscultation , no wheezing or crackles Heart- regular rhythm; no murmur, no gallop. Abdomen- normal bowel sounds, soft, nontender, no distension Extremities- no pretibial edema, no erythema seen Neuro- alert, oriented PERRL, no facial palsy; no dysarthria; moves extremities Discharge Exam General: Obese M. NAD. Sitting up in chair at bedside. A+Ox3. Conversing bobo ropriately. HEENT: Normocephalic, atraumatic. Conjunctivae normal. External ear and nose normal, oropharynx normal. Respiratory: Normal respiratory effort. Lungs clear to auscultation bilaterally. No accessory muscle use. Cardiovascular: Regular rate and rhythm. Normal peripheral pulses, no BLE edema. Abdomen/GI: Normal bowel sounds, soft. Nondistended. Nontender to palpation in all quadrants. Extremities/Musculoskeletal: IVONE drain x 2 (R and L) both intact and draining m inimal serosanguineous output. Surgical dressing C/D/I. Neurologic: No overt focal deficits, CN's II-XI not formally tested but appear grossly intact bilaterally. Actively moves all extremities. Updated Medication List Medication Instructions Recorded Confirmed Type aspirin 81 mg tablet,delayed 81 mg PO QAM 07/02/24 08/16/24 History release atorvastatin 20 mg tablet 20 mg PO QAM 07/02/24 08/16/24 History duloxetine 30 mg capsule,delayed 30 mg PO QAM 07/02/24 08/16/24 History release glipizide 5 mg tablet 2.5 mg PO BID 07/02/24 08/16/24 History lisinopril 20 mg tablet 20 mg PO QAM 07/02/24 08/16/24 History metformin 500 mg tablet 500 mg PO BID 07/02/24 08/16/24 History omeprazole 20 mg capsule,delayed 20 mg PO QAM 07/02/24 08/16/24 History release sertraline 50 mg tablet 50 mg PO QAM 07/02/24 08/16/24 History oxycodone 5 mg tablet 5 mg PO Q6H PRN pain #30 tabs 08/10/24 08/16/24 Rx cholecalciferol (vitamin D3) 1,250 50,000 unit PO WK #11 caps 08/13/24 08/16/24 Rx mcg (50,000 unit) capsule oxycodone 5 mg tablet 5 mg PO Q6H PRN pain #30 tabs 08/23/24 Rx magnesium chloride 64 mg 64 mg PO BID #60 tabs 08/24/24 Rx (magnesium chloride) tablet,delayed release (Mag 64) Hospital Stay Data Consultations 08/16/24 22:49 ED Decision to Admit Stat 08/17/24 08:00 Consult Orthopedic Surgery Routine Procedures Performed Operation Date: 08/20/24 12:35 Actual Procedures p Revision Lumbar Spine Hardware, Spinal Cord Monitoring(Not Applicable) - Christian Rizvi, DO Diagnostic Imagining Performed 08/20/24 12:35 FL lumbar spine 2-3V Routine Pending Results Patient Have Any Pending Studies at Discharge: No Discharge Instructions Given to Patient (Per Discharging Provider) Mr. Bravo, chris were admitted to [facility] after sustaining 2 falls at home due to generalized weakness in the setting of recent spinal surgery performed by Dr. Rizvi during your prior admission. You were found to have evidence of loss of fixation of the S1 pedicle screw on the right and the scarlet appeared to have dissociated from the tulip head on repeat lumbar spine x- ray imaging requiring surgical revision completed on 08/20/[address] Rizvi. You are being discharged to [facility] for further rehabilitation services. RECOMMENDATIONS FOR FOLLOW-UP: A follow-up appointment with your primary care provider (PCP) will be arranged at [facility] to occur within the next 1-2 weeks. You will need a repeat labs including complete blood count (CBC) and basic meta bolic panel (BMP) to monitor your hemoglobin and electrolyte levels. MEDICATION CHANGES: You were started on a magnesium supplement as your magnesium level was low. We have STOPPED your HYDROCHLOROTHIAZIDE as your sodium level was low. Please continue to HOLD your home ASPIRIN until your PCP follow-up appointment! Please take good care of yourself! It has been a pleasure taking care of you. If you have any questions regarding your recent hospitalization please contact [facility] and request Orion Goldberg @ [phone]. Total Time Total Time Spent Total Time Spent (In Minutes): 50 Supervising Physician Co-Signing Physician Notes Patient is seen and examined at bedside on day of discharge. Low back pain at surgical site continues to improve. Noted Doppler study negative for DVT. Plan to discharge to rehab facility today. Discussed with patient's family at [facility]. Patient is currently being managed for pain back pain likely secondary to loosening of hardware, generalized weakness, flu A infection. Patient had replacement of hardware by Dr. Rizvi on 08/21/2024. Given hyponatremia, will discontinue HCTZ. Advised to monitor blood pressure closely and adjust BP medications as needed with the help of PCP on discharge. Currently blood pressure stable. Pain control, PT OT, fall precautions. Completed Tamiflu course. Continue insulin while hospitalized for management of diabetes mellitus. Continue Incentive spirometry. Consider adding anticoagulation for DVT prophylaxis while at rehab facility. I have reviewed the advanced practitioner's documentation on the date of service referred in note and agree with plan. Patient's care is coordinated with Rosy Barrientos PA-C. Please refer to the documentation above for details of patient's presentation and for discussion of other issues. I spent a total [id number] coordinating, documenting, and providing care for this patient excluding time spent in the performance of separately billed services or time spent by another provider/QHP.
[2024-08-24 07:34] LABS: BUN Creatinine Ratio 19.1 (10-20); Creatinine Clr Calc Pharmacy 116.5 ml/min; Magnesium 1.6 mg/dl (1.7-2.4); Potassium 3.9 mmol/L (3.5-5.1)
[2024-08-24 07:49] VITALS: BP 135/79; PULSE 94; RESP 18; TEMP 97.9; O2SAT 97
[2024-08-24] MEDS: MAGNESIUM SULFATE / D5W 1 GM/100 ML BAG IV ONE (09:55)
--- NOTE | 2024-08-24 11:29 | Orthopedic Progress Note ---
Date of Service August 24, 2024 Assessment & Plan (1) S/P lumbar spine operation: Plan: This time he is progressed appropriately. Pain is improved. He is stable for rehab per orthopedics. Admission and Anticipated Discharge Date Admission Date: August 17, 2024 Subjective Back pain controlled leg symptoms improving. Physical Exam Physical Exam: Patient is in the chair at the bedside. Is constricted testing. Results & Data Vital Signs (Past 12 Hours) Vital Signs Temp Pulse Resp BP Pulse Ox O2 Del Method 08/24/24 07:02 36.6 C 94 H 18 135/79 97 Room Air Queries Orthopedic Spine Acute Posthemorrhagic Anemia: Yes Obesity: Yes
--- NOTE | 2024-08-24 14:01 | Ultrasound Report ---
US venous doppler LE RT HISTORY: 74 years-old Male Calf pain, r/o DVT acute pain and swelling of the lower legs COMPARISON: None TECHNIQUE: Multiple real-time sonographic images of the right lower extremity deep venous structures were obtained assessing grayscale appearance, color and spectral flow. FINDINGS: Normal flow, compressibility, phasicity and augmentation. Cystic structure within the popliteal tissu es measures 2.5 x 0.5 x 1.8 cm without color flow suggestive of a Harper's cyst. IMPRESSION: No sonographic evidence of deep venous thrombosis. ACT 112: Negative or not required by law. The above report was generated using voice recognition software. It may contain grammatical, syntax o r spelling errors. Electronically signed by: Yohan Conklin M.D. 08/24/2024 2:00 PM
[2024-08-24] MEDS ORDERED: MAGNESIUM CHLORIDE W/CALCIUM 64MG DELAYED REL TAB PO SCH (21:00)
--- NOTE | 2024-08-27 12:43 | Coding Query ---
CODING QUERY To promote full compliance with coding requirements relating to patient care, provider participation is requested in all cases of reading instructor uncertainty. Please assist us with the question(s) below: Coding Question(s): Per OP report documentation a significant lumbar epidural hematoma was identified, please clarify if this was treated operatively? If so, please explain. Physician's Response(s): The epidural hematoma was evacuated at the time of surgery and drains placed postoperatively Thank you Rosalinda Carrington Principal Diagnosis: "that condition established after study, to be chiefly responsible for occasioning the admission of the patient to the hospital for care." Co-Existing Principal Diagnosis: "when two or more diagnoses equally meet the criteria for principal diagnosis as determined by the circumstances of admission, diagnostic work up, and/or therapy provided, and the Alphabetic Index, Tabular List, or another coding guideline does not provide sequencing direction, any one of the diagnoses may be sequenced first." "When the physician has documented what appears to be a current diagnosis in the body of the record, but has not included the diagnosis in the final diagnostic statement, the physician should be asked whether the diagnosis should be added." (Source Coding [facility] 2 QTR90. p3-4) POPEYE
== END 2024-08-24 15:30 | DRG 515 ==
LOC: ED 21:07 → SUATTDRO 08-17 04:11 → 3E 08-17 04:11